=== PATIENT | female | born 1945 | race Caucasian/White ===

== ENCOUNTER 2021-08-31 20:09 | Inpatient (IN) ==
[2021-08-31] MEDS ORDERED: 0.9 % SODIUM CHLORIDE 1,000 ML IV ONE ×2 (20:54→23:04)
[2021-08-31] MEDS ORDERED: DEXAMETHASONE 10 MG/ML VIAL IV ONE (20:54)
[2021-08-31] MEDS ORDERED: IPRATROPIUM/ALBUTEROL 3 ML AMPUL.NEB NEB ONE (20:55)
[2021-08-31] MEDS ORDERED: DIAZEPAM 5 MG TABLET PO ONE (22:00)
[2021-08-31 22:09] LABS: ABG Methemoglobin 0.3 % (0.4-1.5); Total Hemoglobin 11.6 gm/Dl (12.0-15.0); VBG Base Excess -6 (-2-3); VBG HCO3 18.8 mmol/L (24.0-28.0); VBG Oxygen Saturation 89.7 % (40.0-70.0); VBG PCO2 33.8 mmHg (41.0-51.0); VBG PH 7.36 U (7.32-7.42); VBG PO2 75.1 mmHg (25.0-40.0); VBG Total CO2 19.8 mmol/L (25.0-29.0)
[2021-08-31 22:35] LABS: Basophils # (Auto) 0.02 K/mcL (0.00-0.30); Basophils % (Auto) 0.2 % (0.0-2.0); Eosinophils # (Auto) 0.01 K/mcL (0.00-0.70); Eosinophils % (Auto) 0.1 % (0.0-7.0); Hematocrit 39.6 % (34.1-44.9); Hemoglobin 12.9 g/dL (11.2-15.7); Lymphocytes # (Auto) 3.71 K/mcL (1.50-4.80); Lymphocytes % (Auto) 28.8 % (15.5-49.0); Mean Cell Volume 92.5 fL (80.0-100.0); Mean Corpuscular HGB Conc 32.6 g/dL (31.0-36.0); Mean Platelet Volume 13.1 fL (7.4-10.4); Monocytes # (Auto) 0.89 K/mcL (0.10-0.90); Monocytes % (Auto) 6.9 % (1.0-12.0); Platelet Count 171 K/mcL (140-440); RBC 4.28 M/mcL (3.59-5.38); Red Cell Distribution Width 14.9 % (11.5-14.5); WBC 12.9 K/mcL (4.5-11.0)
[2021-08-31 22:40] LABS: C-Reactive Protein 11.9 mg/dL (0.03-0.80)
[2021-08-31 22:41] LABS: Creatine Kinase 51 U/L (24-170)
[2021-08-31 22:48] LABS: Ferritin 441.2 ng/mL (30.0-400.0)
[2021-08-31 22:52] LABS: ALT/SGPT 12 U/L (<40); AST/SGOT 13 U/L (<32); Albumin 3.5 gm/dL (3.2-5.2); Alkaline Phosphatase 120 U/L (39-117); Bilirubin,Total 0.2 mg/dL (0.1-1.0); Blood Urea Nitrogen 101 mg/dL (8-23); Calcium 8.2 mg/dL (8.6-10.4); Carbon Dioxide 17 mmol/L (22-30); Chloride 97 mmol/L (96-108); Globulin 3.6 gm/dL (2.2-3.7); Glomerular Filtration Rate 9; Glucose 154 mg/dL (70-105)
[2021-09-01] MEDS ORDERED: MELATONIN 3 MG TABLET PO ONE (02:09)
[2021-09-01] MEDS ORDERED: PREGABALIN 150 MG CAPSULE PO ONE (02:09)
[2021-09-01] MEDS ORDERED: 0.9 % SODIUM CHLORIDE 1,000 ML IV ONE (02:10)
[2021-09-01] MEDS ORDERED: CALCIUM GLUCONATE 4.65 MEQ/10 ML VIAL IV ONE ×2 (02:11→06:40)
[2021-09-01] MEDS ORDERED: MAGNESIUM SULFATE 8.12 MEQ/2 ML VIAL IV ONE (02:11)
[2021-09-01] MEDS ORDERED: AZITHROMYCIN 500 MG in DEXTROSE 5% IN WATER 250 ML IV ONE (02:12)
[2021-09-01] MEDS ORDERED: cefTRIAXone 1 GM VIAL IV ONE (02:12)
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
[2021-09-01] MEDS ORDERED: SODIUM BICARBONATE 50 MEQ/50 ML VIAL IV ONE ×2 (04:09→06:41)
--- NOTE | 2021-09-01 05:23 | XRay Report ---
INDICATION: cough TECHNIQUE: AP portable semiupright chest x-ray COMPARISON: None FINDINGS: Lungs:Lungs are negative. No focal pulmonary parenchymal infiltrate or mass Heart, vascular:No significant cardiomegaly. Pulmonary vascularity is normal. No pulmonary edema or pulmonary congestion Mediastinum, javed:No mediastinal widening. No hilar mass Pleura:No pleural fluid. No pleural-based mass or calcification Skeletal:Negative. IMPRESSION: Negative AP chest x-ray Interpreted and Authenticated by: Maksim Greco 09/01/21
[2021-09-01 05:55] LABS: Basophils # (Auto) 0.01 K/mcL (0.00-0.30); Basophils % (Auto) 0.1 % (0.0-2.0); Eosinophils # (Auto) 0 K/mcL (0.00-0.70); Eosinophils % (Auto) 0 % (0.0-7.0); Hematocrit 34.7 % (34.1-44.9); Hemoglobin 11.1 g/dL (11.2-15.7); Lymphocytes # (Auto) 2.31 K/mcL (1.50-4.80); Lymphocytes % (Auto) 23.7 % (15.5-49.0); Mean Cell Volume 94.8 fL (80.0-100.0); Mean Platelet Volume 12.7 fL (7.4-10.4); Monocytes # (Auto) 0.13 K/mcL (0.10-0.90); Monocytes % (Auto) 1.3 % (1.0-12.0); Neutrophils % (Auto) 74.9 % (38.0-78.0); Platelet Count 141 K/mcL (140-440); RBC 3.66 M/mcL (3.59-5.38); Red Cell Distribution Width 14.7 % (11.5-14.5); WBC 9.7 K/mcL (4.5-11.0)
[2021-09-01] MEDS: 0.9 % SODIUM CHLORIDE 1,000 ML IV SCH ×3 (05:56→21:37)
[2021-09-01 06:17] LABS: ALT/SGPT 9 U/L (<40); AST/SGOT 11 U/L (<32); Albumin 2.7 gm/dL (3.2-5.2); Albumin/Globulin Ratio 0.9 (1.0-2.3); Alkaline Phosphatase 102 U/L (39-117); Bilirubin,Total < 0.2 mg/dL (0.1-1.0); Blood Urea Nitrogen 94 mg/dL (8-23); Calcium 7.7 mg/dL (8.6-10.4); Carbon Dioxide 19 mmol/L (22-30); Chloride 99 mmol/L (96-108); Globulin 3.1 gm/dL (2.2-3.7); Glomerular Filtration Rate 12; Glucose 345 mg/dL (70-105)
[2021-09-01] MEDS ORDERED: DEXTROSE 31 GM ORAL.SUSP PO PRN ×2 (06:34→19:43)
[2021-09-01] MEDS ORDERED: DEXTROSE 50% 50 ML VIAL IV PRN ×2 (06:34→19:43)
--- NOTE | 2021-09-01 07:38 | Emergency Department Note ---
Course Course Course Narrative: I assumed care from Dr. White at the change of shift. I evaluated the patient in person at 7:35 AM. She is resting comfortably and awakens to verbal stimuli. She reports improvement in her dyspnea. She is currently breathing comfortably on 4 L supplemental oxygen via nasal cannula with oxygen saturation in the mid 90s. I updated her with the continued search for inpatient bed availability. Vital Signs Vital signs: Vital Signs Temperature 99.2 F H 08/31/21 20:09 Pulse Rate 100 H 08/31/21 20:09 Respiratory Rate 18 08/31/21 20:09 Blood Pressure 94/56 08/31/21 20:09 Pulse Oximetry (%) 89 L 08/31/21 20:09 Temperature 99.2 F H 08/31/21 20:09 Pulse Rate 55 L 09/01/21 16:02 Respiratory Rate 9 L 09/01/21 16:02 Blood Pressure 132/45 09/01/21 16:02 Pulse Oximetry (%) 98 09/01/21 16:02 MDM MDM Narrative Medical decision making narrative: A bed became available at our hospital and I spoke with Dr. Vera who accepts admission to his service. I discussed the plan for admission with the patient and she is agreeable. Lab Data Result diagrams: 09/01/21 05:11 09/01/21 05:11 Labs: Lab Results 08/31/21 08/31/21 08/31/21 Range/Units 20:58 20:58 20:58 WBC 12.9 H (4.5-11.0) K/mcL RBC 4.28 (3.59-5.38) M/mcL Hgb 12.9 (11.2-15.7) g/dL Hct 39.6 (34.1-44.9) % MCV 92.5 (80.0-100.0) fL MCH 30.1 (26.0-34.0) pg MCHC 32.6 (31.0-36.0) g/dL RDW 14.9 H (11.5-14.5) % Plt Count 171 (140-440) K/mcL MPV 13.1 H (7.4-10.4) fL Neut % (Auto) 64.0 (38.0-78.0) % Lymph % (Auto) 28.8 (15.5-49.0) % Bennett % (Auto) 6.9 (1.0-12.0) % Eos % (Auto) 0.1 (0.0-7.0) % Baso % (Auto) 0.2 (0.0-2.0) % Lymph # (Auto) 3.71 (1.50-4.80) K/mcL Bennett # (Auto) 0.89 (0.10-0.90) K/mcL Eos # (Auto) 0.01 (0.00-0.70) K/mcL Baso # (Auto) 0.02 (0.00-0.30) K/mcL Absolute Neutrophils 8.26 H (1.80-8.00) K/mcL ABG Methemoglobin (0.4-1.5) % VBG pH (7.32-7.42) U VBG pCO2 (41.0-51.0) mmHg VBG pO2 (25.0-40.0) mmHg VBG HCO3 (24.0-28.0) mmol/L VBG Total CO2 (25.0-29.0) mmol/L VBG O2 Saturation (40.0-70.0) % VBG Base Excess (-2-3) VBG Lactic Acid (0.5-2.0) mmol/L Carboxyhemoglobin (0.0-1.5) % THgb Total Hemoglobin (12.0-15.0) gm/Dl Sodium 136 (133-145) mmol/L Potassium 3.8 (3.3-5.1) mmol/L Chloride 97 (96-108) mmol/L Carbon Dioxide 17 L (22-30) mmol/L Anion Gap 22.0 H (8.0-16.0) BUN 101 H* (8-23) mg/dL Creatinine 4.4 H (0.6-1.1) mg/dL GFR Calculation 9 Glucose 154 H (70-105) mg/dL Calcium 8.2 L (8.6-10.4) mg/dL Magnesium 1.4 L (1.6-2.5) mg/dL Ferritin (30.0-400.0) ng/mL Total Bilirubin 0.2 (0.1-1.0) mg/dL AST 13 (<32) U/L ALT 12 (<40) U/L Alkaline Phosphatase 120 H (39-117) U/L Total Creatine Kinase 51 (24-170) U/L Troponin T < 0.01 (<0.03) ng/mL C-Reactive Protein (0.03-0.80) mg/dL Total Protein 7.1 (5.9-8.4) gm/dL Albumin 3.5 (3.2-5.2) gm/dL Globulin 3.6 (2.2-3.7) gm/dL Albumin/Globulin Ratio 1.0 (1.0-2.3) Procalcitonin (<0.10) ng/mL 08/31/21 08/31/21 08/31/21 Range/Units 20:58 21:00 21:40 WBC (4.5-11.0) K/mcL RBC (3.59-5.38) M/mcL Hgb (11.2-15.7) g/dL Hct (34.1-44.9) % MCV (80.0-100.0) fL MCH (26.0-34.0) pg MCHC (31.0-36.0) g/dL RDW (11.5-14.5) % Plt Count (140-440) K/mcL MPV (7.4-10.4) fL Neut % (Auto) (38.0-78.0) % Lymph % (Auto) (15.5-49.0) % Bennett % (Auto) (1.0-12.0) % Eos % (Auto) (0.0-7.0) % Baso % (Auto) (0.0-2.0) % Lymph # (Auto) (1.50-4.80) K/mcL Bennett # (Auto) (0.10-0.90) K/mcL Eos # (Auto) (0.00-0.70) K/mcL Baso # (Auto) (0.00-0.30) K/mcL Absolute Neutrophils (1.80-8.00) K/mcL ABG Methemoglobin (0.4-1.5) % VBG pH (7.32-7.42) U VBG pCO2 (41.0-51.0) mmHg VBG pO2 (25.0-40.0) mmHg VBG HCO3 (24.0-28.0) mmol/L VBG Total CO2 (25.0-29.0) mmol/L VBG O2 Saturation (40.0-70.0) % VBG Base Excess (-2-3) VBG Lactic Acid 1.0 (0.5-2.0) mmol/L Carboxyhemoglobin (0.0-1.5) % THgb Total Hemoglobin (12.0-15.0) gm/Dl Sodium (133-145) mmol/L Potassium (3.3-5.1) mmol/L Chloride (96-108) mmol/L Carbon Dioxide (22-30) mmol/L Anion Gap (8.0-16.0) BUN (8-23) mg/dL Creatinine (0.6-1.1) mg/dL GFR Calculation Glucose (70-105) mg/dL Calcium (8.6-10.4) mg/dL Magnesium (1.6-2.5) mg/dL Ferritin 441.2 H (30.0-400.0) ng/mL Total Bilirubin (0.1-1.0) mg/dL AST (<32) U/L ALT (<40) U/L Alkaline Phosphatase (39-117) U/L Total Creatine Kinase (24-170) U/L Troponin T (<0.03) ng/mL C-Reactive Protein 11.90 H (0.03-0.80) mg/dL Total Protein (5.9-8.4) gm/dL Albumin (3.2-5.2) gm/dL Globulin (2.2-3.7) gm/dL Albumin/Globulin Ratio (1.0-2.3) Procalcitonin 0.27 H (<0.10) ng/mL 08/31/21 09/01/21 09/01/21 Range/Units 21:40 05:11 05:11 WBC 9.7 (4.5-11.0) K/mcL RBC 3.66 (3.59-5.38) M/mcL Hgb 11.1 L (11.2-15.7) g/dL Hct 34.7 (34.1-44.9) % MCV 94.8 (80.0-100.0) fL MCH 30.3 (26.0-34.0) pg MCHC 32.0 (31.0-36.0) g/dL RDW 14.7 H (11.5-14.5) % Plt Count 141 (140-440) K/mcL MPV 12.7 H (7.4-10.4) fL Neut % (Auto) 74.9 (38.0-78.0) % Lymph % (Auto) 23.7 (15.5-49.0) % Bennett % (Auto) 1.3 (1.0-12.0) % Eos % (Auto) 0 (0.0-7.0) % Baso % (Auto) 0.1 (0.0-2.0) % Lymph # (Auto) 2.31 (1.50-4.80) K/mcL Bennett # (Auto) 0.13 (0.10-0.90) K/mcL Eos # (Auto) 0 (0.00-0.70) K/mcL Baso # (Auto) 0.01 (0.00-0.30) K/mcL Absolute Neutrophils 7.28 (1.80-8.00) K/mcL ABG Methemoglobin 0.3 L (0.4-1.5) % VBG pH 7.36 (7.32-7.42) U VBG pCO2 33.8 L (41.0-51.0) mmHg VBG pO2 75.1 H (25.0-40.0) mmHg VBG HCO3 18.8 L (24.0-28.0) mmol/L VBG Total CO2 19.8 L (25.0-29.0) mmol/L VBG O2 Saturation 89.7 H (40.0-70.0) % VBG Base Excess -6 L (-2-3) VBG Lactic Acid (0.5-2.0) mmol/L Carboxyhemoglobin 4.7 H (0.0-1.5) % THgb Total Hemoglobin 11.6 L (12.0-15.0) gm/Dl Sodium 135 (133-145) mmol/L Potassium 3.7 (3.3-5.1) mmol/L Chloride 99 (96-108) mmol/L Carbon Dioxide 19 L (22-30) mmol/L Anion Gap 17.0 H (8.0-16.0) BUN 94 H (8-23) mg/dL Creatinine 3.5 H (0.6-1.1) mg/dL GFR Calculation 12 Glucose 345 H (70-105) mg/dL Calcium 7.7 L (8.6-10.4) mg/dL Magnesium 1.6 (1.6-2.5) mg/dL Ferritin (30.0-400.0) ng/mL Total Bilirubin < 0.2 (0.1-1.0) mg/dL AST 11 (<32) U/L ALT 9 (<40) U/L Alkaline Phosphatase 102 (39-117) U/L Total Creatine Kinase (24-170) U/L Troponin T (<0.03) ng/mL C-Reactive Protein (0.03-0.80) mg/dL Total Protein 5.8 L (5.9-8.4) gm/dL Albumin 2.7 L (3.2-5.2) gm/dL Globulin 3.1 (2.2-3.7) gm/dL Albumin/Globulin Ratio 0.9 L (1.0-2.3) Procalcitonin (<0.10) ng/mL ED POC Tests ED POC Tests: GIGI - Influenza A Negative GIGI - Influenza B Negative GIGI - SARS Antigen Positive Discharge Plan Patient/Caregiver Discharge Instructions Pt seen by DIRECTOR ADULT/PA only: No Clinical Impression: COVID-19, Acute hypoxemic respiratory failure, Acute renal failure Patient Disposition: Xfer As Inpt ([facility]) Condition: Fair Follow up with: Marce Baca ARNP [Primary Care Provider] - Prescriptions: No Action allopurinol 300 mg tablet 300 mg PO QDAY Qty: 90 1RF (DME) blood sugar diagnostic [Accu-Chek Chuyita Plus test strp] strip See Dose Instructions .ROUTE .MEDSUPPLY Qty: 20 0RF Rx Instructions: As directed (DME) blood-glucose meter [Accu-Chek Chuyita Plus Meter] misc See Dose Instructions .ROUTE .MEDSUPPLY Qty: 1 0RF Rx Instructions: As directed atorvastatin 80 mg tablet 80 mg PO QHS 0RF torsemide 10 mg tablet 10 mg PO QDAY 0RF Trulicity 1.5 mg/0.5 mL pen injector 1.5 mg SUB-Q QWEEK 0RF lisinopril-hydrochlorothiazide 20-12.5 mg tablet 1 tab PO BID 0RF insulin lispro [Humalog KwikPen Insulin] 100 unit/mL Insulin Pen See Rx Instructions .ROUTE .COMPLEX 0RF Rx Instructions: sliding scale with meals Basaglar KwikPen U-100 Insulin 100 unit/mL (3 mL) Insulin Pen 10 unit SUBCUT QAM 0RF glipizide 5 mg tablet 10 mg PO BID 0RF pregabalin 150 mg capsule 150 mg PO BID 0RF docusate sodium [Stool Softener] 100 mg capsule 100 mg PO QDAY 0RF
[2021-09-01] MEDS ORDERED: NON FORMULARY MEDICATION 1 DOSE MISCELL (Insulin Lispro [Humalog Kwikpen Insulin] 100 unit SCH (07:45)
[2021-09-01] MEDS: INSULIN LISPRO 1 UNIT/0.01 ML UNIT SQ SCH ×4 (08:29→22:22)
[2021-09-01] MEDS: INSULIN GLARGINE, HUMAN 1 UNIT/0.01 ML SQ SCH (08:30)
[2021-09-01] MEDS ORDERED: NON FORMULARY MEDICATION 1 DOSE MISCELL (Insulin Glargine [Basaglar Kwikpen U-100 Insulin] SUB-Q SCH (09:00)
[2021-09-01] MEDS ORDERED: glipiZIDE 5 MG TABLET PO SCH ×2 (09:00→17:00)
[2021-09-01] MEDS ORDERED: HEPARIN 5,000 UNIT/ML VIAL SQ SCH (09:00)
[2021-09-01] MEDS ORDERED: DULAGLUTIDE 1.5 MG/0.5 ML SUB-Q SCH (09:00)
[2021-09-01] MEDS ORDERED: DOCUSATE SODIUM 100 MG CAPSULE PO SCH (09:00)
[2021-09-01] MEDS ORDERED: PREGABALIN 150 MG CAPSULE PO SCH (09:00)
[2021-09-01] MEDS ORDERED: [UNRECOGNIZED DRUG - OTHER] SUB-Q SCH (09:00)
--- NOTE | 2021-09-01 16:08 | EKG ---
[facility] Test Date: 2021-08-31 Pat Name: Rosina Morris Department: ED Room: Gender: Female Direct Sales Consultant: SB : [id number] Requested By: Princess White Order Number: [id number] Reading MD: Ad Miller Measurements Intervals Lindsay Rate: 89 P: 191 MT: 153 QRS: -57 QRSD: 119 T: 64 QT: 391 QTc: 476 Interpretive Statements Excessive artifact Sinus rhythm Poor R wave progression Electronically Signed On 09-01-2021 16:08:12 PST by Ad Miller /store/M0/[id number]/[id number].pdf
[2021-09-01] MEDS ORDERED: INSULIN LISPRO 1 UNIT/0.01 ML UNIT SQ ONE (17:11)
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
[2021-09-01] MEDS ORDERED: ONDANSETRON 4 MG/2 ML VIAL IV PRN (19:43)
[2021-09-01] MEDS ORDERED: cefTRIAXone 2 GM VIAL ONE (20:21)
[2021-09-01] MEDS: cefTRIAXone 2 GM in DEXTROSE 5% IN WATER 50 ML IV SCH (21:37)
[2021-09-01] MEDS: 0.9 % SODIUM CHLORIDE 10 ML SYRINGE IV SCH (21:38)
[2021-09-01] MEDS: ATORVASTATIN 40 MG TABLET PO SCH (21:38)
[2021-09-01] MEDS: HEPARIN 5,000 UNIT/ML VIAL SQ SCH (21:38)
[2021-09-01] MEDS: ALLOPURINOL 100 MG TABLET PO SCH (21:38)
[2021-09-01] MEDS: SENNOSIDES 1 TABLET PO SCH (21:52)
[2021-09-01] MEDS: DOCUSATE SODIUM 100 MG CAPSULE PO SCH (21:52)
[2021-09-01 23:08] LABS: Appearance,Urine Clear (Clear); Bilirubin,Urine Negative (Negative); Color,Urine Yellow; Culture Indicated,Urine No; Glucose,Urine (UA) Negative (Negative); Ketones,Urine Negative (Negative); Leukocyte Esterase,Urine Negative /uL (Negative); Mucus,Urine FEW /hpf; Nitrate,Urine Negative (Negative); PH,Urine 5.5 (5.0-9.0); Protein,Urine Negative (Negative); Specific Gravity,Urine 1.015 (1.000-1.035); Urine Blood Trace-intact ery/mcL (Negative); Urine RBC < 1 /hpf (0-3); Urine Squamous Epithelial Cell < 1 /hpf (0-4); Urine WBC 1 /hpf (0-4); Urobilinogen,Urine Normal
[2021-09-02] MEDS: 0.9 % SODIUM CHLORIDE 1,000 ML IV SCH ×2 (03:49→11:08)
[2021-09-02] MEDS: 0.9 % SODIUM CHLORIDE 10 ML SYRINGE IV SCH ×3 (05:58→22:06)
--- NOTE | 2021-09-02 06:45 | Ultrasound Report ---
INDICATION: acute kidney injury TECHNIQUE: Grayscale and color flow Doppler spectral imaging. COMPARISON: None. FINDINGS: Right kidney: Right kidney measures9.4 x 5.0 x 3.9 cm. There is no hydronephrosis. No solid right renal mass. Renal cortex is normal. No detectable calculi. There are 2 benign simple cyst. Inferior pole cyst measures 18 x 16 x 19 mm. Lateral cyst measures 18 x 9 x 14 mm. No evidence for renal injury. No perinephric fluid Left kidney: Left kidney measures9.2 x 4.3 x 3.7 cm. There is no hydronephrosis. No solid left renal mass. Renal cortex is normal. No detectable calculi. There are 2 simple cysts. These measure 6 x 5 x 4 mm and 11 x 8 x 11 mm. No evidence for renal injury. No perinephric fluid Bladder: Bladder is not assessed as it is decompressed by a Pan catheter IMPRESSION: Negative renal ultrasound Interpreted and Authenticated by: Maksim Greco 09/02/21
[2021-09-02] MEDS: INSULIN LISPRO 1 UNIT/0.01 ML UNIT SQ SCH ×4 (07:08→22:05)
--- NOTE | 2021-09-02 07:32 | XRay Report ---
INDICATION: Repeat after IV fluid, positive for COVID. TECHNIQUE: AP portable chest x-ray COMPARISON: Previous examination dated 08/31/2021 FINDINGS: Lungs:Lungs are negative. No focal pulmonary parenchymal infiltrate or mass Heart, vascular:No significant cardiomegaly. Pulmonary vascularity is normal. No pulmonary edema or pulmonary congestion Mediastinum, javed:No mediastinal widening. No hilar mass Pleura:No pleural fluid. No pleural-based mass or calcification Skeletal:Negative. IMPRESSION: Negative AP chest x-ray Interpreted and Authenticated by: Maksim Greco 09/02/21
[2021-09-02] MEDS: DEXAMETHASONE 10 MG/ML VIAL IV SCH (08:14)
[2021-09-02] MEDS: HEPARIN 5,000 UNIT/ML VIAL SQ SCH ×2 (08:14→22:06)
[2021-09-02] MEDS: DOCUSATE SODIUM 100 MG CAPSULE PO SCH ×2 (08:14→22:05)
[2021-09-02 08:39] LABS: ALT/SGPT 10 U/L (<40); AST/SGOT 13 U/L (<32); Albumin 2.5 gm/dL (3.2-5.2); Albumin/Globulin Ratio 0.8 (1.0-2.3); Alkaline Phosphatase 90 U/L (39-117); Bilirubin,Direct < 0.2 mg/dL (0-0.3); Bilirubin,Total < 0.2 mg/dL (0.1-1.0); Blood Urea Nitrogen 75 mg/dL (8-23); Calcium 7.6 mg/dL (8.6-10.4); Carbon Dioxide 21 mmol/L (22-30); Chloride 113 mmol/L (96-108); Globulin 3.3 gm/dL (2.2-3.7); Glomerular Filtration Rate 19; Glucose 41 mg/dL (70-105); Lactate Dehydrogenase 179 U/L (135-225); Phosphorous 3.4 mg/dL (2.5-4.5); Triglycerides 171 mg/dL (<150); Uric Acid 5.3 mg/dL (2.5-8.0)
[2021-09-02 09:01] LABS: Hematocrit 33.8 % (34.1-44.9); Mean Cell Volume 92.1 fL (80.0-100.0); Mean Corpuscular HGB Conc 32.5 g/dL (31.0-36.0); Mean Platelet Volume 12.9 fL (7.4-10.4); Platelet Count 151 K/mcL (140-440); RBC 3.67 M/mcL (3.59-5.38); Red Cell Distribution Width 14.7 % (11.5-14.5); WBC 10.6 K/mcL (4.5-11.0)
[2021-09-02] MEDS ORDERED: POTASSIUM CHLORIDE 20 MEQ TABLET PO ONE (09:18)
[2021-09-02] MEDS ORDERED: MAGNESIUM SULFATE 2 GM/50 ML BAG IV ONE (09:19)
[2021-09-02] MEDS: cefTRIAXone 2 GM in DEXTROSE 5% IN WATER 50 ML IV SCH (10:01)
[2021-09-02] MEDS: INSULIN GLARGINE, HUMAN 1 UNIT/0.01 ML SQ SCH (10:11)
[2021-09-02 11:22] LABS: Lymphocytes % 32 % (15-49); Monocytes % (Manual) 5 % (1-12); Platelet Estimate NORMAL (Normal); RBC Morphology NORMAL (Normal); Segmented Neutrophils % 63 % (38-78)
[2021-09-02] MEDS: ACETAMINOPHEN 325 MG TABLET PO PRN ×2 (12:36→21:27)
[2021-09-02] MEDS ORDERED: GABAPENTIN 300 MG CAPSULE PO SCH (15:15)
--- NOTE | 2021-09-02 17:05 | Internal Med Progress Note ---
SUBJECTIVE Subjective Patient information: Note initiated : 09/02/21 at 5:05 pm Service Date, if different from initiated Date: [] Patient: Rosina Morris 76 y/o F admitted on 09/01/21 for weakness. Chief Complaint: [] Principal diagnosis: COVID Interval history: Ms. Morris is a 76 year old female with a history of hypertension, type 2 diabetes mellitus, chronic kidney disease stage IV, gout, bladder cancer who developed chills, nausea approximately 4 days prior to presenting to the emergency department with a chief complaint of chills and weakness. In the emergency department, the patient was found to be positive for Covid via Monika rapid antigen test. Patient also had a oxygen requirement of 2 L/min via nasal cannula. Laboratory work in emergency department showed a acute kidney injury and azotemia with a creatinine of 4.4 and a BUN level of 101. The patient also had leukocytosis of 12.9 upon presentation to the emergency department. Hospital medicine was asked to admit the patient. In the emergency department, the patient's chief complaint was chills. She had received a substantial amount of IV fluid and was making clear urine via a Lopez catheter that been placed in the emergency department. The patient had received a dose of Decadron while waiting for bed in the emergency department. She also received ceftriaxone and azithromycin for possible community-acquired pneumonia. Chest x-ray did not show any infiltrate suggestive of either community-acquired or Covid pneumonia. We discussed goals of care including CODE STATUS, the patient wishes to be DNR/DNI. 09/02 Some loose stools today, on room air and feeling better, renal function improving making urine. Stopped IV fluid, removed lopez catheter, resumed renally dosed Lyrica. Decreased Lantus to 5 units HS for morning hypoglycemia. Replaced potassium and magnesium. CRP and procalcitonin trending down, continued Ceftriaxone, blood and urine cultures pending. Physical exam Head: Atraumatic, normal inspection. Eyes: normal appearance, no scleral icterus. Neck: full ROM Respiratory: Nasal cannula oxygen no respiratory distress. Cardiovascular: normal rate and rhythm, S1, S2. GI/Abdominal: soft, nontender, no guarding. : Lopez catheter Extremities: full range of motion, nontender. Neurological: CN II-XII intact, intact motor, intact sensation. Psychiatric: normal mood. Skin: warm, normal color Constitutional Vitals: Vital Signs Temp Pulse Resp BP Pulse Ox 99.0 F 63 18 143/63 92 09/02/21 12:00 09/02/21 12:00 09/02/21 12:00 09/02/21 12:00 09/02/21 12:00 Period Temp Pulse Resp BP Sys/Pedersen Pulse Ox Last 24 Hr 98 F-99.9 F 57-86 11-30 123-160/48-115 85-96 Intake and Output 09/02/21 09/02/21 09/02/21 05:59 13:59 21:59 Intake Total 390 1650 1080 Output Total 348 460 4105 Balance -360 1325 55 Intake & Output: Intake & Output 09/02/21 09/02/21 09/02/21 05:59 13:59 21:59 Intake Total 390 1650 1080 Output Total 369 009 5143 Balance -360 1325 55 Intake: IV 50 1050 50 Sodium Chloride 0.9% 1,000 ml @ 1000 125 mls/hr IV .Q8H [facility] Rx#: [id number] Rocephin 2 gm In Dextrose 5% in 50 50 Water 50 ml @ 100 mls/hr IV Q24H [facility] Rx#:[id number] Oral 256 [id number] [id number] Output: Urine Catheter Amount 750 325 Void Amount 1025 Other: Meal Breakfast Lunch Percent of Meal Consumed 100% 50% Feeding Ability Assist with Tray Set Up Urine Appearance Clear Clear Clear Urine Color Bright Yellow Bright Yellow Bright Yellow Stool Size Large Stool Color Brown Stool Consistency Soft Loose # Bowel Movements 2 8 # of times incontinent of 1 5 Bowels OBJ DATA Labs CBC & Chem 7: 09/02/21 05:25 09/02/21 05:25 Labs: Abnormal Lab Results 09/02/21 09/02/21 09/02/21 05:25 05:25 05:25 WBC Hgb 11.0 L Hct 33.8 L RDW 14.7 H MPV 12.9 H Absolute Neutrophils ABG Methemoglobin VBG pCO2 VBG pO2 VBG HCO3 VBG Total CO2 VBG O2 Saturation VBG Base Excess Carboxyhemoglobin Total Hemoglobin Sodium 147 H Potassium 3.0 L Chloride 113 H Carbon Dioxide 21 L Anion Gap BUN 75 H Creatinine 2.4 H Glucose 41 L Calcium 7.6 L Magnesium 1.5 L Ferritin Alkaline Phosphatase C-Reactive Protein 6.80 H Total Protein 5.8 L Albumin 2.5 L Albumin/Globulin Ratio 0.8 L Triglycerides 171 H Procalcitonin 0.15 H Urine Occult Blood Urine Mucus 09/01/21 09/01/21 09/01/21 17:55 05:11 05:11 WBC Hgb 11.1 L Hct RDW 14.7 H MPV 12.7 H Absolute Neutrophils ABG Methemoglobin VBG pCO2 VBG pO2 VBG HCO3 VBG Total CO2 VBG O2 Saturation VBG Base Excess Carboxyhemoglobin Total Hemoglobin Sodium Potassium Chloride Carbon Dioxide 19 L Anion Gap 17.0 H BUN 94 H Creatinine 3.5 H Glucose 345 H Calcium 7.7 L Magnesium Ferritin Alkaline Phosphatase C-Reactive Protein Total Protein 5.8 L Albumin 2.7 L Albumin/Globulin Ratio 0.9 L Triglycerides Procalcitonin Urine Occult Blood Trace-intact A Urine Mucus Few A 08/31/21 08/31/21 08/31/21 21:40 21:00 20:58 WBC Hgb Hct RDW MPV Absolute Neutrophils ABG Methemoglobin 0.3 L VBG pCO2 33.8 L VBG pO2 75.1 H VBG HCO3 18.8 L VBG Total CO2 19.8 L VBG O2 Saturation 89.7 H VBG Base Excess -6 L Carboxyhemoglobin 4.7 H Total Hemoglobin 11.6 L Sodium Potassium Chloride Carbon Dioxide Anion Gap BUN Creatinine Glucose Calcium Magnesium Ferritin 441.2 H Alkaline Phosphatase C-Reactive Protein 11.90 H Total Protein Albumin Albumin/Globulin Ratio Triglycerides Procalcitonin 0.27 H Urine Occult Blood Urine Mucus 08/31/21 08/31/21 20:58 20:58 WBC 12.9 H Hgb Hct RDW 14.9 H MPV 13.1 H Absolute Neutrophils 8.26 H ABG Methemoglobin VBG pCO2 VBG pO2 VBG HCO3 VBG Total CO2 VBG O2 Saturation VBG Base Excess Carboxyhemoglobin Total Hemoglobin Sodium Potassium Chloride Carbon Dioxide 17 L Anion Gap 22.0 H BUN 101 H* Creatinine 4.4 H Glucose 154 H Calcium 8.2 L Magnesium 1.4 L Ferritin Alkaline Phosphatase 120 H C-Reactive Protein Total Protein Albumin Albumin/Globulin Ratio Triglycerides Procalcitonin Urine Occult Blood Urine Mucus Meds: Medications Acetaminophen (Acetaminophen 325 Mg Tablet) 650 mg PO Q6HP PRN; Protocol PRN Reason: Per Pain Protocol/Fever > 101 Last Admin: 09/02/21 12:36 Dose: 650 mg Documented by: Allopurinol (Allopurinol 100 Mg Tablet) 100 mg PO [facility] Last Admin: 09/01/21 21:38 Dose: 100 mg Documented by: Atorvastatin Calcium (Atorvastatin 40 Mg Tablet) 80 mg PO QHS [facility] Last Admin: 09/01/21 21:38 Dose: 80 mg Documented by: Dexamethasone (Dexamethasone 10 Mg/Ml Vial) 6 mg IV DAILY [facility] Last Admin: 09/02/21 08:14 Dose: 6 mg Documented by: Dextrose (Dextrose 50% 50 Ml Vial) 0 ml IV UD PRN PRN Reason: Hypoglycemia Diagnostic Test (Pha) (Accu-Chek 1 Each Strip) 1 each FS [facility] Last Admin: 09/02/21 11:53 Dose: 1 each Documented by: Docusate Sodium (Docusate Sodium 100 Mg Capsule) 100 mg PO BID [facility] Last Admin: 09/02/21 08:14 Dose: Not Given Documented by: Glucose (Dextrose 31 Gm Oral.Susp) 15 gm PO PRN PRN PRN Reason: Hypoglycemia Heparin Sodium (Porcine) (Heparin 5,000 Unit/Ml Vial) 5,000 unit SQ Q12 [facility] Last Admin: 09/02/21 08:14 Dose: 5,000 unit Documented by: Ceftriaxone Sodium 2 gm/ (Dextrose) 50 mls @ 100 mls/hr IV Q24H [facility]; Protocol Last Infusion: 09/02/21 11:08 Dose: Infused Documented by: Insulin Glargine (Insulin Glargine, Human 1 Unit/0.01 Ml) 5 unit SQ DAILY [facility] Insulin Human Lispro (Insulin Lispro 1 Unit/0.01 Ml Unit) 0 unit SQ [facility]; Protocol Last Admin: 09/02/21 12:35 Dose: 10 units Documented by: Ondansetron HCl (Ondansetron 4 Mg/2 Ml Vial) 4 mg IV Q6HP PRN PRN Reason: Nausea And Vomiting Pregabalin (Pregabalin 150 Mg Capsule) 150 mg PO DAILY [facility] Senna (Sennosides 1 Tablet) 2 tab PO [facility] Last Admin: 09/01/21 21:52 Dose: Not Given Documented by: Sodium Chloride (0.9 % Sodium Chloride 10 Ml Syringe) 10 ml IV Q8 [facility] Last Admin: 09/02/21 12:36 Dose: 10 ml Documented by: ABG Interpretation ABG results: 08/31/21 21:40 ABG Methemoglobin 0.3 L VBG pH 7.36 VBG pCO2 33.8 L VBG pO2 75.1 H VBG HCO3 18.8 L VBG Total CO2 19.8 L VBG O2 Saturation 89.7 H VBG Base Excess -6 L A/P Narrative A/P Narrative: Assessment: 76 year old female with a history of hypertension, type 2 diabetes mellitus, chronic kidney disease stage IV, gout, bladder cancer who developed chills, nausea approximately 4 days prior to presenting to the emergency department with a chief complaint of chills and weakness and tested positive for COVID. The patient was found to be hypoxic and had a acute on chronic kidney injury. Chest x-ray did not show any infiltrates. #Acute on chronic kidney injury #Acute hypoxic respiratory failure #Covid illness #SIRS, elevated procalcitonin #Hypernatremia #Hypokalemia #Hypomagnesemia #Generalized weakness #Hypertension #Type 2 diabetes mellitus #Gout #History of bladder cancer #Obesity Plan -Stop IV fluid, monitor urine output and renal function. -Dexamethasone 6 mg IV daily, deferred remdesivir due to renal failure. -Monitor respiratory status. -Continue Ceftriaxone for now, follow blood and urine cultures-discontinue if no growth at 48 hrs. -Lantus and SSImedium. -Replace electrolytes as needed. -Hold home lisinopril, hydrochlorothiazide, torsemide, glipizide, dulaglutide. -Continue home atorvastatin. -Renally dosed Lyrica. -Renally dosed allopurinol. -PT consult. -Diabetic diet -Remove lopez catheter -DVT prophylaxis: Heparin SQ -CODE STATUS: Limited -Disposition: TBD Time Spent With Patient Time: Total time spent is greater than 50% in coordination of care (as documented) at patient's floor/unit and/or counseling patient:
[2021-09-02] MEDS: PREGABALIN 150 MG CAPSULE PO SCH (17:32)
[2021-09-02] MEDS: SENNOSIDES 1 TABLET PO SCH (22:06)
[2021-09-02] MEDS: ALLOPURINOL 100 MG TABLET PO SCH (22:06)
[2021-09-02] MEDS: ATORVASTATIN 40 MG TABLET PO SCH (22:06)
[2021-09-02] MEDS: HYDROCODONE/APAP 7.5/325MG TABLET PO PRN (23:09)
[2021-09-02] MEDS ORDERED: HYDROCODONE/APAP 7.5/325MG TABLET PO ONE (23:12)
[2021-09-03] MEDS: 0.9 % SODIUM CHLORIDE 10 ML SYRINGE IV SCH ×3 (05:43→21:49)
[2021-09-03 07:08] LABS: Hematocrit 35.7 % (34.1-44.9); Hemoglobin 11.5 g/dL (11.2-15.7); Mean Cell Volume 93.2 fL (80.0-100.0); Mean Corpuscular HGB Conc 32.2 g/dL (31.0-36.0); Mean Platelet Volume 12.9 fL (7.4-10.4); Platelet Count 154 K/mcL (140-440); RBC 3.83 M/mcL (3.59-5.38); Red Cell Distribution Width 14.8 % (11.5-14.5); WBC 8.4 K/mcL (4.5-11.0)
[2021-09-03 07:33] LABS: ALT/SGPT 12 U/L (<40); AST/SGOT 14 U/L (<32); Albumin 2.7 gm/dL (3.2-5.2); Albumin/Globulin Ratio 0.8 (1.0-2.3); Alkaline Phosphatase 107 U/L (39-117); Bilirubin,Direct < 0.2 mg/dL (0-0.3); Bilirubin,Total < 0.2 mg/dL (0.1-1.0); Blood Urea Nitrogen 52 mg/dL (8-23); Calcium 8.3 mg/dL (8.6-10.4); Carbon Dioxide 21 mmol/L (22-30); Chloride 109 mmol/L (96-108); Globulin 3.3 gm/dL (2.2-3.7); Glomerular Filtration Rate 27; Glucose 158 mg/dL (70-105); Lactate Dehydrogenase 245 U/L (135-225); Phosphorous 2.5 mg/dL (2.5-4.5); Triglycerides 137 mg/dL (<150); Uric Acid 4.4 mg/dL (2.5-8.0)
[2021-09-03] MEDS: INSULIN LISPRO 1 UNIT/0.01 ML UNIT SQ SCH ×4 (08:05→21:49)
[2021-09-03 08:16] LABS: Lymphocytes % 36 % (15-49); Monocytes % (Manual) 4 % (1-12); Platelet Estimate NORMAL (Normal); RBC Morphology NORMAL (Normal); Segmented Neutrophils % 60 % (38-78)
[2021-09-03] MEDS: DOCUSATE SODIUM 100 MG CAPSULE PO SCH ×2 (09:01→21:49)
[2021-09-03] MEDS: PREGABALIN 150 MG CAPSULE PO SCH (09:01)
[2021-09-03] MEDS: DEXAMETHASONE 10 MG/ML VIAL IV SCH (09:02)
[2021-09-03] MEDS: INSULIN GLARGINE, HUMAN 1 UNIT/0.01 ML SQ SCH (09:03)
[2021-09-03] MEDS: HEPARIN 5,000 UNIT/ML VIAL SQ SCH ×2 (09:04→21:48)
[2021-09-03] MEDS: cefTRIAXone 2 GM in DEXTROSE 5% IN WATER 50 ML IV SCH (09:05)
--- NOTE | 2021-09-03 13:57 | Internal Med Progress Note ---
SUBJECTIVE Subjective Patient information: Note initiated : 09/03/21 at 1:55 pm Service Date, if different from initiated Date: [] Patient: Rosina Morris 76 y/o F admitted on 09/01/21 for weakness. Chief Complaint: [] Principal diagnosis: COVID Interval history: Ms. Morris is a 76 year old female with a history of hypertension, type 2 diabetes mellitus, chronic kidney disease stage IV, gout, bladder cancer who developed chills, nausea approximately 4 days prior to presenting to the emergency department with a chief complaint of chills and weakness. In the emergency department, the patient was found to be positive for Covid via Monika rapid antigen test. The patient has not been vaccinated for COVID. Patient also had a oxygen requirement of 2 L/min via nasal cannula. Laboratory work in emergency department showed a acute kidney injury and azotemia with a creatinine of 4.4 and a BUN level of 101. The patient also had leukocytosis of 12.9 upon presentation to the emergency department. Hospital medicine was asked to admit the patient. In the emergency department, the patient's chief complaint was chi lls. She had received a substantial amount of IV fluid and was making clear urine via a Lopez catheter that been placed in the emergency department. The patient had received a dose of Decadron while waiting for bed in the emergency department. She also received ceftriaxone and azithromycin for possible community-acquired pneumonia. Chest x-ray did not show any infiltrate suggestive of either community-acquired or Covid pneumonia.UA was not suggestive of UTI. We discussed goals of care including CODE STATUS, the patient wishes to be DNR/DNI. 09/02 Some loose stools today, on room air and feeling better, renal function improving making urine. Stopped IV fluid, removed lopez catheter, resumed renally dosed Lyrica. Decreased Lantus to 5 units HS for morning hypoglycemia. Replaced potassium and magnesium. CRP and procalcitonin trending down, continued Ceftriaxone, blood and urine cultures pending. Bilateral renal ultrasound negative. 09/03 Loose stools resolved, continues on room air, renal function improving, good urine output. Sodium, potassium, and magnesium normal today. Blood cultures showing no growth to date, no evidence of UTI and repeat chest xray was clear after IV fluid. Discontinued Ceftriaxone. Physical exam Head: Atraumatic, normal inspection. Eyes: normal appearance, no scleral icterus. Neck: full ROM Respiratory: Nasal cannula oxygen no respiratory distress. Cardiovascular: normal rate and rhythm, S1, S2. GI/Abdominal: soft, nontender, no guarding. Extremities: full range of motion, nontender. Neurological: CN II-XII intact, intact motor, intact sensation. Psychiatric: normal mood. Skin: warm, normal color Constitutional Vitals: Vital Signs Temp Pulse Resp BP Pulse Ox 98.5 F 46 L 20 128/41 95 09/03/21 12:00 09/03/21 12:00 09/03/21 12:00 09/03/21 12:00 09/03/21 12:00 Period Temp Pulse Resp BP Sys/Pedersen Pulse Ox Last 24 Hr 97.7 F-98.6 F 46-79 16-20 124-166/41-76 90-95 Intake and Output 09/02/21 09/03/21 09/03/21 21:59 05:59 13:59 Intake Total 2080 1000 50 Output Total 1025 851 Balance 1055 149 50 Weight 76.839 kg Intake & Output: Intake & Output 09/02/21 09/03/21 09/03/21 21:59 05:59 13:59 Intake Total 2080 1000 50 Output Total 1025 851 Balance 1055 149 50 Weight 76.839 kg Intake: IV 50 50 Rocephin 2 gm In Dextrose 5% in 50 Water 50 ml @ 100 mls/hr IV Q24H [facility] Rx#:[id number] Oral 2030 1000 Output: Void Amount 1025 850 # of times incontinent of urine 1 Other: Meal Dinner Percent of Meal Consumed 75% Urine Appearance Clear Clear Urine Color Bright Yellow Pale Stool Size Moderate Stool Color Brown Stool Consistency Soft # Voids 1 # Bowel Movements 1 # of times incontinent of 5 Bowels OBJ DATA Labs CBC & Chem 7: 09/03/21 05:16 09/03/21 05:16 Labs: Abnormal Lab Results 09/03/21 09/03/21 09/02/21 05:16 05:16 05:25 WBC Hgb Hct RDW 14.8 H MPV 12.9 H Absolute Neutrophils ABG Methemoglobin VBG pCO2 VBG pO2 VBG HCO3 VBG Total CO2 VBG O2 Saturation VBG Base Excess Carboxyhemoglobin Total Hemoglobin Sodium Potassium Chloride 109 H Carbon Dioxide 21 L Anion Gap BUN 52 H Creatinine 1.8 H Glucose 158 H Calcium 8.3 L Magnesium Ferritin Alkaline Phosphatase Lactate Dehydrogenase 245 H C-Reactive Protein Total Protein Albumin 2.7 L Albumin/Globulin Ratio 0.8 L Triglycerides Procalcitonin 0.15 H Urine Occult Blood Urine Mucus 09/02/21 09/02/21 09/01/21 05:25 05:25 17:55 WBC Hgb 11.0 L Hct 33.8 L RDW 14.7 H MPV 12.9 H Absolute Neutrophils ABG Methemoglobin VBG pCO2 VBG pO2 VBG HCO3 VBG Total CO2 VBG O2 Saturation VBG Base Excess Carboxyhemoglobin Total Hemoglobin Sodium 147 H Potassium 3.0 L Chloride 113 H Carbon Dioxide 21 L Anion Gap BUN 75 H Creatinine 2.4 H Glucose 41 L Calcium 7.6 L Magnesium 1.5 L Ferritin Alkaline Phosphatase Lactate Dehydrogenase C-Reactive Protein 6.80 H Total Protein 5.8 L Albumin 2.5 L Albumin/Globulin Ratio 0.8 L Triglycerides 171 H Procalcitonin Urine Occult Blood Trace-intact A Urine Mucus Few A 09/01/21 09/01/21 08/31/21 05:11 05:11 21:40 WBC Hgb 11.1 L Hct RDW 14.7 H MPV 12.7 H Absolute Neutrophils ABG Methemoglobin 0.3 L VBG pCO2 33.8 L VBG pO2 75.1 H VBG HCO3 18.8 L VBG Total CO2 19.8 L VBG O2 Saturation 89.7 H VBG Base Excess -6 L Carboxyhemoglobin 4.7 H Total Hemoglobin 11.6 L Sodium Potassium Chloride Carbon Dioxide 19 L Anion Gap 17.0 H BUN 94 H Creatinine 3.5 H Glucose 345 H Calcium 7.7 L Magnesium Ferritin Alkaline Phosphatase Lactate Dehydrogenase C-Reactive Protein Total Protein 5.8 L Albumin 2.7 L Albumin/Globulin Ratio 0.9 L Triglycerides Procalcitonin Urine Occult Blood Urine Mucus 08/31/21 08/31/21 08/31/21 21:00 20:58 20:58 WBC Hgb Hct RDW MPV Absolute Neutrophils ABG Methemoglobin VBG pCO2 VBG pO2 VBG HCO3 VBG Total CO2 VBG O2 Saturation VBG Base Excess Carboxyhemoglobin Total Hemoglobin Sodium Potassium Chloride Carbon Dioxide 17 L Anion Gap 22.0 H BUN 101 H* Creatinine 4.4 H Glucose 154 H Calcium 8.2 L Magnesium 1.4 L Ferritin 441.2 H Alkaline Phosphatase 120 H Lactate Dehydrogenase C-Reactive Protein 11.90 H Total Protein Albumin Albumin/Globulin Ratio Triglycerides Procalcitonin 0.27 H Urine Occult Blood Urine Mucus 08/31/21 20:58 WBC 12.9 H Hgb Hct RDW 14.9 H MPV 13.1 H Absolute Neutrophils 8.26 H ABG Methemoglobin VBG pCO2 VBG pO2 VBG HCO3 VBG Total CO2 VBG O2 Saturation VBG Base Excess Carboxyhemoglobin Total Hemoglobin Sodium Potassium Chloride Carbon Dioxide Anion Gap BUN Creatinine Glucose Calcium Magnesium Ferritin Alkaline Phosphatase Lactate Dehydrogenase C-Reactive Protein Total Protein Albumin Albumin/Globulin Ratio Triglycerides Procalcitonin Urine Occult Blood Urine Mucus Meds: Medications Acetaminophen (Acetaminophen 325 Mg Tablet) 650 mg PO Q6HP PRN; Protocol PRN Reason: Per Pain Protocol/Fever > 101 Last Admin: 09/02/21 21:27 Dose: 650 mg Documented by: Hydrocodone Bitart/Acetaminophen (Hydrocodone/Apap 7.5/325mg Tablet) 1 tab PO BIDP PRN; Protocol PRN Reason: Per Pain Protocol Last Admin: 09/02/21 23:09 Dose: 1 tab Documented by: Allopurinol (Allopurinol 100 Mg Tablet) 100 mg PO HS [facility] Last Admin: 09/02/21 22:06 Dose: 100 mg Documented by: Atorvastatin Calcium (Atorvastatin 40 Mg Tablet) 80 mg PO QHS [facility] Last Admin: 09/02/21 22:06 Dose: 80 mg Documented by: Dexamethasone (Dexamethasone 10 Mg/Ml Vial) 6 mg IV DAILY [facility] Last Admin: 09/03/21 09:02 Dose: 6 mg Documented by: Dextrose (Dextrose 50% 50 Ml Vial) 0 ml IV UD PRN PRN Reason: Hypoglycemia Diagnostic Test (Pha) (Accu-Chek 1 Each Strip) 1 each FS ACHS [facility] Last Admin: 09/03/21 12:26 Dose: 1 each Documented by: Docusate Sodium (Docusate Sodium 100 Mg Capsule) 100 mg PO BID [facility] Last Admin: 09/03/21 09:01 Dose: 100 mg Documented by: Glucose (Dextrose 31 Gm Oral.Susp) 15 gm PO PRN PRN PRN Reason: Hypoglycemia Heparin Sodium (Porcine) (Heparin 5,000 Unit/Ml Vial) 5,000 unit SQ Q12 [facility] Last Admin: 09/03/21 09:04 Dose: 5,000 unit Documented by: Ceftriaxone Sodium 2 gm/ (Dextrose) 50 mls @ 100 mls/hr IV Q24H [facility]; Protocol Last Infusion: 09/03/21 09:35 Dose: Infused Documented by: Insulin Glargine (Insulin Glargine, Human 1 Unit/0.01 Ml) 5 unit SQ DAILY [facility] Last Admin: 09/03/21 09:03 Dose: 5 units Documented by: Insulin Human Lispro (Insulin Lispro 1 Unit/0.01 Ml Unit) 0 unit SQ ACHS [facility]; Protocol Last Admin: 09/03/21 12:26 Dose: 8 units Documented by: Ondansetron HCl (Ondansetron 4 Mg/2 Ml Vial) 4 mg IV Q6HP PRN PRN Reason: Nausea And Vomiting Pregabalin (Pregabalin 150 Mg Capsule) 150 mg PO DAILY [facility] Last Admin: 09/03/21 09:01 Dose: 150 mg Documented by: Senna (Sennosides 1 Tablet) 2 tab PO HS [facility] Last Admin: 09/02/21 22:06 Dose: Not Given Documented by: Sodium Chloride (0.9 % Sodium Chloride 10 Ml Syringe) 10 ml IV Q8 [facility] Last Admin: 09/03/21 05:43 Dose: 10 ml Documented by: ABG Interpretation ABG results: 08/31/21 21:40 ABG Methemoglobin 0.3 L VBG pH 7.36 VBG pCO2 33.8 L VBG pO2 75.1 H VBG HCO3 18.8 L VBG Total CO2 19.8 L VBG O2 Saturation 89.7 H VBG Base Excess -6 L A/P Narrative A/P Narrative: Assessment: 76 year old female with a history of hypertension, type 2 diabetes mellitus, chronic kidney disease stage IV, gout, bladder cancer who developed chills, nausea approximately 4 days prior to presenting to the emergency department with a chief complaint of chills and weakness and tested positive for COVID. The patient was found to be hypoxic and had a acute on chronic kidney injury. Chest x-ray did not show any infiltrates. The patient has not been vaccinated for COVID. #Resolving acute on chronic kidney injury #Resolved hypoxic respiratory failure #Covid illness #Resolved SIRS, elevated procalcitonin #Generalized weakness #Hypertension #Type 2 diabetes mellitus #Gout #History of bladder cancer #Obesity Plan -Stop IV fluid, monitor urine output and renal function. -Dexamethasone 6 mg IV daily, deferred remdesivir due to renal failure. -Monitor respiratory status. -Discontinue Ceftriaxone. -Lantus and SSImedium. -Replace electrolytes as needed. -Hold home lisinopril, hydrochlorothiazide, torsemide, glipizide, dulaglutide. -Possibly resume home torsemide tomorrow. -Continue home atorvastatin. -Renally dosed Lyrica. -Renally dosed allopurinol. -PT consult. -Diabetic diet -DVT prophylaxis: Heparin SQ -CODE STATUS: Limited -Disposition: TBD Time Spent With Patient Time: Total time spent is greater than 50% in coordination of care (as documented) at patient's floor/unit and/or counseling patient:
[2021-09-03] MEDS: HYDROCODONE/APAP 7.5/325MG TABLET PO PRN (21:48)
[2021-09-03] MEDS: ALLOPURINOL 100 MG TABLET PO SCH (21:48)
[2021-09-03] MEDS: ATORVASTATIN 40 MG TABLET PO SCH (21:48)
[2021-09-03] MEDS: SENNOSIDES 1 TABLET PO SCH (21:49)
[2021-09-04] MEDS: 0.9 % SODIUM CHLORIDE 10 ML SYRINGE IV SCH ×3 (05:17→21:21)
[2021-09-04 07:28] LABS: Hemoglobin 12.5 g/dL (11.2-15.7); Mean Cell Volume 94.2 fL (80.0-100.0); Mean Corpuscular HGB Conc 32.1 g/dL (31.0-36.0); Platelet Count 152 K/mcL (140-440); RBC 4.14 M/mcL (3.59-5.38); Red Cell Distribution Width 14.9 % (11.5-14.5); WBC 11.2 K/mcL (4.5-11.0)
[2021-09-04 07:30] LABS: Mean Platelet Volume 12.9 fL (7.4-10.4)
[2021-09-04 07:48] LABS: ALT/SGPT 14 U/L (<40); AST/SGOT 14 U/L (<32); Albumin 2.8 gm/dL (3.2-5.2); Albumin/Globulin Ratio 0.9 (1.0-2.3); Alkaline Phosphatase 111 U/L (39-117); Bilirubin,Direct < 0.2 mg/dL (0-0.3); Bilirubin,Total 0.2 mg/dL (0.1-1.0); Blood Urea Nitrogen 42 mg/dL (8-23); Calcium 8.6 mg/dL (8.6-10.4); Carbon Dioxide 20 mmol/L (22-30); Chloride 107 mmol/L (96-108); Globulin 3.2 gm/dL (2.2-3.7); Glomerular Filtration Rate 34; Glucose 151 mg/dL (70-105); Lactate Dehydrogenase 247 U/L (135-225); Phosphorous 2.2 mg/dL (2.5-4.5); Triglycerides 206 mg/dL (<150); Uric Acid 4.2 mg/dL (2.5-8.0)
[2021-09-04 08:24] LABS: Lymphocytes % 31 % (15-49); Monocytes % (Manual) 10 % (1-12); Platelet Estimate NORMAL (Normal); RBC Morphology NORMAL (Normal); Segmented Neutrophils % 59 % (38-78)
[2021-09-04] MEDS: PREGABALIN 150 MG CAPSULE PO SCH (08:36)
[2021-09-04] MEDS: HYDROCODONE/APAP 7.5/325MG TABLET PO PRN ×2 (08:36→18:44)
[2021-09-04] MEDS: HEPARIN 5,000 UNIT/ML VIAL SQ SCH ×2 (08:37→21:14)
[2021-09-04] MEDS: DEXAMETHASONE 10 MG/ML VIAL IV SCH (08:37)
[2021-09-04] MEDS: INSULIN LISPRO 1 UNIT/0.01 ML UNIT SQ SCH ×4 (08:38→21:37)
[2021-09-04] MEDS: INSULIN GLARGINE, HUMAN 1 UNIT/0.01 ML SQ SCH (08:38)
[2021-09-04] MEDS: DOCUSATE SODIUM 100 MG CAPSULE PO SCH ×2 (08:39→21:15)
--- NOTE | 2021-09-04 11:49 | Internal Med Progress Note ---
SUBJECTIVE Subjective Patient information: Note initiated : 09/04/21 at 11:49 am Service Date, if different from initiated Date: [] Patient: Rosina Morris 76 y/o F admitted on 09/01/21 for weakness. Chief Complaint: [] Principal diagnosis: COVID Interval history: Ms. Morris is a 76 year old female with a history of hypertension, type 2 diabetes mellitus, chronic kidney disease stage IV, gout, bladder cancer who dev eloped chills, nausea approximately 4 days prior to presenting to the emergency department with a chief complaint of chills and weakness. In the emergency department, the patient was found to be positive for Covid via Monika rapid antigen test. The patient has not been vaccinated for COVID. Patient also had a oxygen requirement of 2 L/min via nasal cannula. Laboratory work in emergency department showed a acute kidney injury and azotemia with a creatinine of 4.4 and a BUN level of 101. The patient also had leukocytosis of 12.9 upon presentation to the emergency department. Hospital medicine was asked to admit the patient. In the emergency department, the patient's chief complaint was ch ills. She had received a substantial amount of IV fluid and was making clear urine via a Lopez catheter that been placed in the emergency department. The patient had received a dose of Decadron while waiting for bed in the emergency department. She also received ceftriaxone and azithromycin for possible community-acquired pneumonia. Chest x-ray did not show any infiltrate suggestive of either community-acquired or Covid pneumonia.UA was not suggestive of UTI. We discussed goals of care including CODE STATUS, the patient wishes to be DNR/DNI. 09/02 Some loose stools today, on room air and feeling better, renal function improving making urine. Stopped IV fluid, removed lopez catheter, resumed renally dosed Lyrica. Decreased Lantus to 5 units HS for morning hypoglycemia. Replaced potassium and magnesium. CRP and procalcitonin trending down, continued Ceftriaxone, blood and urine cultures pending. Bilateral renal ultrasound negative. 09/03 Loose stools resolved, continues on room air, renal function improving, good urine output. Sodium, potassium, and magnesium normal today. Blood cultures showing no growth to date, no evidence of UTI and repeat chest xray was clear after IV fluid. Discontinued Ceftriaxone. 09/04 High-grade temp of 99.8 this morning but overall improving clinically. Continues on room air. Mild leukocytosis today likely secondary to dexamethasone. Urine and blood cultures continue to show no growth. Renal function improving. Resumed home torsemide. Physical exam Head: Atraumatic, normal inspection. Eyes: normal appearance, no scleral icterus. Neck: full ROM Respiratory: Nasal cannula oxygen no respiratory distress. Cardiovascular: normal rate and rhythm, S1, S2. GI/Abdominal: soft, nontender, no guarding. Extremities: full range of motion, nontender. Neurological: CN II-XII intact, intact motor, intact sensation. Psychiatric: normal mood. Skin: warm, normal color Constitutional Vitals: Vital Signs Temp Pulse Resp BP Pulse Ox 99.8 F H 61 18 143/56 93 09/04/21 07:43 09/04/21 07:43 09/04/21 07:43 09/04/21 07:43 09/04/21 07:43 Period Temp Pulse Resp BP Sys/Pedersen Pulse Ox Last 24 Hr 97.7 F-99.8 F 46-82 15-20 128-153/41-65 92-97 Intake and Output 09/03/21 09/04/21 09/04/21 21:59 05:59 13:59 Intake Total 825 300 Output Total 1050 Balance -225 300 Weight 77.309 kg Intake & Output: Intake & Output 09/03/21 09/04/21 09/04/21 21:59 05:59 13:59 Intake Total 825 300 Output Total 1050 Balance -225 300 Weight 77.309 kg Intake: Oral 825 300 Output: Void Amount 450 Urine/Stool Mix 600 Other: Meal Dinner Percent of Meal Consumed 100% Feeding Ability Independent Urine Appearance Clear Urine Color Dark Yellow Urine Odor Normal Stool Size Small Stool Color Brown Stool Consistency Liquid Loose Loose # Voids 1 1 # Bowel Movements 1 1 OBJ DATA Labs CBC & Chem 7: 09/04/21 05:15 09/04/21 05:15 Labs: Abnormal Lab Results 09/04/21 09/04/21 09/03/21 05:15 05:15 05:16 WBC 11.2 H Hgb Hct RDW 14.9 H MPV 12.9 H Sodium Potassium Chloride 109 H Carbon Dioxide 20 L 21 L BUN 42 H 52 H Creatinine 1.5 H 1.8 H Glucose 151 H 158 H Calcium 8.3 L Phosphorus 2.2 L Magnesium Lactate Dehydrogenase 247 H 245 H C-Reactive Protein Total Protein Albumin 2.8 L 2.7 L Albumin/Globulin Ratio 0.9 L 0.8 L Triglycerides 206 H Procalcitonin Urine Occult Blood Urine Mucus 09/03/21 09/02/21 09/02/21 05:16 05:25 05:25 WBC Hgb Hct RDW 14.8 H MPV 12.9 H Sodium 147 H Potassium 3.0 L Chloride 113 H Carbon Dioxide 21 L BUN 75 H Creatinine 2.4 H Glucose 41 L Calcium 7.6 L Phosphorus Magnesium 1.5 L Lactate Dehydrogenase C-Reactive Protein 6.80 H Total Protein 5.8 L Albumin 2.5 L Albumin/Globulin Ratio 0.8 L Triglycerides 171 H Procalcitonin 0.15 H Urine Occult Blood Urine Mucus 09/02/21 09/01/21 05:25 17:55 WBC Hgb 11.0 L Hct 33.8 L RDW 14.7 H MPV 12.9 H Sodium Potassium Chloride Carbon Dioxide BUN Creatinine Glucose Calcium Phosphorus Magnesium Lactate Dehydrogenase C-Reactive Protein Total Protein Albumin Albumin/Globulin Ratio Triglycerides Procalcitonin Urine Occult Blood Trace-intact A Urine Mucus Few A Meds: Medications Acetaminophen (Acetaminophen 325 Mg Tablet) 650 mg PO Q6HP PRN; Protocol PRN Reason: Per Pain Protocol/Fever > 101 Last Admin: 09/02/21 21:27 Dose: 650 mg Documented by: Hydrocodone Bitart/Acetaminophen (Hydrocodone/Apap 7.5/325mg Tablet) 1 tab PO BIDP PRN; Protocol PRN Reason: Per Pain Protocol Last Admin: 09/04/21 08:36 Dose: 1 tab Documented by: Allopurinol (Allopurinol 100 Mg Tablet) 100 mg PO HS [facility] Last Admin: 09/03/21 21:48 Dose: 100 mg Documented by: Atorvastatin Calcium (Atorvastatin 40 Mg Tablet) 80 mg PO QHS [facility] Last Admin: 09/03/21 21:48 Dose: 80 mg Documented by: Dexamethasone (Dexamethasone 10 Mg/Ml Vial) 6 mg IV DAILY [facility] Last Admin: 09/04/21 08:37 Dose: 6 mg Documented by: Dextrose (Dextrose 50% 50 Ml Vial) 0 ml IV UD PRN PRN Reason: Hypoglycemia Diagnostic Test (Pha) (Accu-Chek 1 Each Strip) 1 each FS ACHS [facility] Last Admin: 09/04/21 07:44 Dose: 1 each Documented by: Docusate Sodium (Docusate Sodium 100 Mg Capsule) 100 mg PO BID [facility] Last Admin: 09/04/21 08:39 Dose: Not Given Documented by: Glucose (Dextrose 31 Gm Oral.Susp) 15 gm PO PRN PRN PRN Reason: Hypoglycemia Heparin Sodium (Porcine) (Heparin 5,000 Unit/Ml Vial) 5,000 unit SQ Q12 [facility] Last Admin: 09/04/21 08:37 Dose: 5,000 unit Documented by: Insulin Glargine (Insulin Glargine, Human 1 Unit/0.01 Ml) 5 unit SQ DAILY [facility] Last Admin: 09/04/21 08:38 Dose: 5 units Documented by: Insulin Human Lispro (Insulin Lispro 1 Unit/0.01 Ml Unit) 0 unit SQ [facility]; Protocol Last Admin: 09/04/21 08:38 Dose: 2 units Documented by: Ondansetron HCl (Ondansetron 4 Mg/2 Ml Vial) 4 mg IV Q6HP PRN PRN Reason: Nausea And Vomiting Pregabalin (Pregabalin 150 Mg Capsule) 150 mg PO DAILY [facility] Last Admin: 09/04/21 08:36 Dose: 150 mg Documented by: Senna (Sennosides 1 Tablet) 2 tab PO HS [facility] Last Admin: 09/03/21 21:49 Dose: Not Given Documented by: Sodium Chloride (0.9 % Sodium Chloride 10 Ml Syringe) 10 ml IV Q8 [facility] Last Admin: 09/04/21 05:17 Dose: 10 ml Documented by: ABG Interpretation ABG results: 08/31/21 21:40 ABG Methemoglobin 0.3 L VBG pH 7.36 VBG pCO2 33.8 L VBG pO2 75.1 H VBG HCO3 18.8 L VBG Total CO2 19.8 L VBG O2 Saturation 89.7 H VBG Base Excess -6 L A/P Narrative A/P Narrative: Assessment: 76 year old female with a history of hypertension, type 2 diabetes mellitus, chronic kidney disease stage IV, gout, bladder cancer who developed chills, nausea approximately 4 days prior to presenting to the emergency department with a chief complaint of chills and weakness and tested positive for COVID. The patient was found to be hypoxic and had a acute on chronic kidney injury. Chest x-ray did not show any infiltrates. The patient has not been vaccinated for COVID. The patient was started on dexamethasone IV for hypoxia in the setting of Covid, remdesivir was deferred due to renal failure. She was treated with ceftriaxone for about 48 hours however that was discontinued after blood, urine cultures did not growany organism and repeat chest x-ray did not show any infiltrates. Hypoxia resolved, renal function has improved. Patient continues to have generalized weakness, awaiting physical therapy recommendations. #Generalized weakness due to Covid illness #Resolving acute on chronic kidney injury #Resolved hypoxic respiratory failure #Covid illness #Resolved SIRS, elevated procalcitonin #Hypertension #Type 2 diabetes mellitus #Gout #History of bladder cancer #Obesity Plan -Dexamethasone 6 mg IV daily, deferred remdesivir due to renal failure. -Monitor respiratory status. -Lantus and SSImedium. -Replace electrolytes as needed. -Hold home lisinopril, hydrochlorothiazide, glipizide, dulaglutide. -Resume home torsemide. -Continue home atorvastatin. -Renally dosed Lyrica. -Renally dosed allopurinol. -PT consult. -Diabetic diet -DVT prophylaxis: Heparin SQ -CODE STATUS: Limited -Disposition: TBD Time Spent With Patient Time: Total time spent is greater than 50% in coordination of care (as documented) at patient's floor/unit and/or counseling patient:
[2021-09-04] MEDS: TORSEMIDE 10 MG TABLET PO SCH (12:14)
--- NOTE | 2021-09-04 14:15 | Internal Med Progress Note ---
SUBJECTIVE Subjective Patient information: Note initiated : 09/04/21 at 2:11 pm Service Date, if different from initiated Date: [] Patient: Rosina Morris 76 y/o F admitted on 09/01/21 for weakness. Chief Complaint: [] Principal diagnosis: COVID Interval history: Ms. Morris is a 76 year old female with a history of hypertension, type 2 diabetes mellitus, chronic kidney disease stage IV, gout, bladder cancer who developed chills, nausea approximately 4 days prior to presenting to the emergency department with a chief complaint of chills and weakness. In the emergency department, the patient was found to be positive for Covid via Monika rapid antigen test. The patient has not been vaccinated for COVID. Patient also had a oxygen requirement of 2 L/min via nasal cannula. Laboratory work in emergency department showed a acute kidney injury and azotemia with a creatinine of 4.4 and a BUN level of 101. The patient also had leukocytosis of 12.9 upon presentation to the emergency department. Hospital medicine was asked to admit the patient. In the emergency department, the patient's chief complaint was chi lls. She had received a substantial amount of IV fluid and was making clear urine via a Lopez catheter that been placed in the emergency department. The patient had received a dose of Decadron while waiting for bed in the emergency department. She also received ceftriaxone and azithromycin for possible community-acquired pneumonia. Chest x-ray did not show any infiltrate suggestive of either community-acquired or Covid pneumonia.UA was not suggestive of UTI. We discussed goals of care including CODE STATUS, the patient wishes to be DNR/DNI. 09/02 Some loose stools today, on room air and feeling better, renal function improving making urine. Stopped IV fluid, removed lopez catheter, resumed renally dosed Lyrica. Decreased Lantus to 5 units HS for morning hypoglycemia. Replaced potassium and magnesium. CRP and procalcitonin trending down, continued Ceftriaxone, blood and urine cultures pending. Bilateral renal ultrasound negative. 09/03 Loose stools resolved, continues on room air, renal function improving, good urine output. Sodium, potassium, and magnesium normal today. Blood cultures showing no growth to date, no evidence of UTI and repeat chest xray was clear after IV fluid. Discontinued Ceftriaxone. 09/04 High-grade temp of 99.8 this morning but overall improving clinically. Continues on room air. Mild leukocytosis today likely secondary to dexamethasone. Urine and blood cultures continue to show no growth. Renal function improving. Resumed home torsemide. Physical exam Head: Atraumatic, normal inspection. Eyes: normal appearance, no scleral icterus. Neck: full ROM Respiratory: Nasal cannula oxygen no respiratory distress. Cardiovascular: normal rate and rhythm, S1, S2. GI/Abdominal: soft, nontender, no guarding. Extremities: full range of motion, nontender. Neurological: CN II-XII intact, intact motor, intact sensation. Psychiatric: normal mood. Skin: warm, normal color Constitutional Vitals: Vital Signs Temp Pulse Resp BP Pulse Ox 98.7 F 65 16 132/62 94 09/04/21 12:00 09/04/21 12:00 09/04/21 12:00 09/04/21 12:00 09/04/21 12:00 Period Temp Pulse Resp BP Sys/Pedersen Pulse Ox Last 24 Hr 97.7 F-99.8 F 56-82 15-18 130-153/56-65 92-97 Intake and Output 09/04/21 09/04/21 09/04/21 05:59 13:59 21:59 Intake Total 300 Balance 300 Intake & Output: Intake & Output 09/04/21 09/04/21 09/04/21 05:59 13:59 21:59 Intake Total 300 Balance 300 Intake: Oral 300 Other: Stool Consistency Loose # Voids 1 # Bowel Movements 1 Exam: General: Alert, Awake, No acute Distress, obese Eyes/N/T: EOMI, Head/Neck: neck supple, CV: RRR, No murmurs, Pulm: Clear b/l, no wheezing/rhonchi/rales Abd: soft, nontender, +BS x4 Ext: no clubbing/cyanosis/edema Neuro: Alert, no focal deficits, moves all extremities, Skin: warm/dry OBJ DATA Labs CBC & Chem 7: 09/04/21 05:15 09/04/21 05:15 Labs: Abnormal Lab Results 09/04/21 09/04/21 09/03/21 05:15 05:15 05:16 WBC 11.2 H Hgb Hct RDW 14.9 H MPV 12.9 H Sodium Potassium Chloride 109 H Carbon Dioxide 20 L 21 L BUN 42 H 52 H Creatinine 1.5 H 1.8 H Glucose 151 H 158 H Calcium 8.3 L Phosphorus 2.2 L Magnesium Lactate Dehydrogenase 247 H 245 H C-Reactive Protein Total Protein Albumin 2.8 L 2.7 L Albumin/Globulin Ratio 0.9 L 0.8 L Triglycerides 206 H Procalcitonin Urine Occult Blood Urine Mucus 09/03/21 09/02/21 09/02/21 05:16 05:25 05:25 WBC Hgb Hct RDW 14.8 H MPV 12.9 H Sodium 147 H Potassium 3.0 L Chloride 113 H Carbon Dioxide 21 L BUN 75 H Creatinine 2.4 H Glucose 41 L Calcium 7.6 L Phosphorus Magnesium 1.5 L Lactate Dehydrogenase C-Reactive Protein 6.80 H Total Protein 5.8 L Albumin 2.5 L Albumin/Globulin Ratio 0.8 L Triglycerides 171 H Procalcitonin 0.15 H Urine Occult Blood Urine Mucus 09/02/21 09/01/21 05:25 17:55 WBC Hgb 11.0 L Hct 33.8 L RDW 14.7 H MPV 12.9 H Sodium Potassium Chloride Carbon Dioxide BUN Creatinine Glucose Calcium Phosphorus Magnesium Lactate Dehydrogenase C-Reactive Protein Total Protein Albumin Albumin/Globulin Ratio Triglycerides Procalcitonin Urine Occult Blood Trace-intact A Urine Mucus Few A Meds: Medications Acetaminophen (Acetaminophen 325 Mg Tablet) 650 mg PO Q6HP PRN; Protocol PRN Reason: Per Pain Protocol/Fever > 101 Last Admin: 09/02/21 21:27 Dose: 650 mg Documented by: Hydrocodone Bitart/Acetaminophen (Hydrocodone/Apap 7.5/325mg Tablet) 1 tab PO BIDP PRN; Protocol PRN Reason: Per Pain Protocol Last Admin: 09/04/21 08:36 Dose: 1 tab Documented by: Allopurinol (Allopurinol 100 Mg Tablet) 100 mg PO HS [facility] Last Admin: 09/03/21 21:48 Dose: 100 mg Documented by: Atorvastatin Calcium (Atorvastatin 40 Mg Tablet) 80 mg PO QHS [facility] Last Admin: 09/03/21 21:48 Dose: 80 mg Documented by: Dexamethasone (Dexamethasone 10 Mg/Ml Vial) 6 mg IV DAILY [facility] Last Admin: 09/04/21 08:37 Dose: 6 mg Documented by: Dextrose (Dextrose 50% 50 Ml Vial) 0 ml IV UD PRN PRN Reason: Hypoglycemia Diagnostic Test (Pha) (Accu-Chek 1 Each Strip) 1 each FS [facility] Last Admin: 09/04/21 11:49 Dose: 1 each Documented by: Docusate Sodium (Docusate Sodium 100 Mg Capsule) 100 mg PO BID [facility] Last Admin: 09/04/21 08:39 Dose: Not Given Documented by: Glucose (Dextrose 31 Gm Oral.Susp) 15 gm PO PRN PRN PRN Reason: Hypoglycemia Heparin Sodium (Porcine) (Heparin 5,000 Unit/Ml Vial) 5,000 unit SQ Q12 [facility] Last Admin: 09/04/21 08:37 Dose: 5,000 unit Documented by: Insulin Glargine (Insulin Glargine, Human 1 Unit/0.01 Ml) 5 unit SQ DAILY [facility] Last Admin: 09/04/21 08:38 Dose: 5 units Documented by: Insulin Human Lispro (Insulin Lispro 1 Unit/0.01 Ml Unit) 0 unit SQ [facility]; Protocol Last Admin: 09/04/21 12:15 Dose: 8 units Documented by: Ondansetron HCl (Ondansetron 4 Mg/2 Ml Vial) 4 mg IV Q6HP PRN PRN Reason: Nausea And Vomiting Pregabalin (Pregabalin 150 Mg Capsule) 150 mg PO DAILY [facility] Last Admin: 09/04/21 08:36 Dose: 150 mg Documented by: Senna (Sennosides 1 Tablet) 2 tab PO HS [facility] Last Admin: 09/03/21 21:49 Dose: Not Given Documented by: Sodium Chloride (0.9 % Sodium Chloride 10 Ml Syringe) 10 ml IV Q8 [facility] Last Admin: 09/04/21 05:17 Dose: 10 ml Documented by: Torsemide (Torsemide 10 Mg Tablet) 30 mg PO DAILY [facility] Last Admin: 09/04/21 12:14 Dose: 30 mg Documented by: ABG Interpretation ABG results: 08/31/21 21:40 ABG Methemoglobin 0.3 L VBG pH 7.36 VBG pCO2 33.8 L VBG pO2 75.1 H VBG HCO3 18.8 L VBG Total CO2 19.8 L VBG O2 Saturation 89.7 H VBG Base Excess -6 L A/P Narrative A/P Narrative: A: #Generalized weakness: due to Covid illness #Acute respiratory failure: Resolved #Covid illness: #Resolved SIRS, elevated procalcitonin #MARLON on CKD IIIb: Resolving #HTN: #DM 2: #Gout / History of bladder cancer #Obesity: BMI 32 Plan -Dexamethasone 6 mg IV daily, deferred remdesivir due to renal failure. -Monitor respiratory status. -Lantus and SSI -Hold home lisinopril/hydrochlorothiazide, glipizide/dulaglutide. -Resume home torsemide. -Continue home atorvastatin. -Renally dosed Lyrica/allopurinol. -PT consult. -prophylaxis: Heparin SQ CODE STATUS: Limited Time Spent With Patient Time: Total time spent is greater than 50% in coordination of care (as documented) at patient's floor/unit and/or counseling patient:
[2021-09-04] MEDS: ACETAMINOPHEN 325 MG TABLET PO PRN ×2 (17:11→23:30)
[2021-09-04] MEDS ORDERED: PHENAZOPYRIDINE 200 MG TABLET PO PRN (17:29)
[2021-09-04] MEDS ORDERED: PHENAZOPYRIDINE 200 MG TABLET PO ONE (17:29)
[2021-09-04] MEDS: ALLOPURINOL 100 MG TABLET PO SCH (21:14)
[2021-09-04] MEDS: ATORVASTATIN 40 MG TABLET PO SCH (21:15)
[2021-09-04] MEDS: SENNOSIDES 1 TABLET PO SCH (21:16)
[2021-09-05] MEDS: 0.9 % SODIUM CHLORIDE 10 ML SYRINGE IV SCH ×2 (03:59→12:13)
[2021-09-05 06:56] LABS: Basophils # (Auto) 0.01 K/mcL (0.00-0.30); Basophils % (Auto) 0.1 % (0.0-2.0); Eosinophils # (Auto) 0.01 K/mcL (0.00-0.70); Eosinophils % (Auto) 0.1 % (0.0-7.0); Hematocrit 38.2 % (34.1-44.9); Hemoglobin 12.5 g/dL (11.2-15.7); Lymphocytes # (Auto) 3.14 K/mcL (1.50-4.80); Lymphocytes % (Auto) 30.7 % (15.5-49.0); Mean Cell Volume 92.3 fL (80.0-100.0); Mean Corpuscular HGB Conc 32.7 g/dL (31.0-36.0); Monocytes # (Auto) 0.76 K/mcL (0.10-0.90); Monocytes % (Auto) 7.4 % (1.0-12.0); Neutrophils % (Auto) 61.7 % (38.0-78.0); Platelet Count 142 K/mcL (140-440); RBC 4.14 M/mcL (3.59-5.38); Red Cell Distribution Width 14.8 % (11.5-14.5); WBC 10.2 K/mcL (4.5-11.0)
[2021-09-05 07:38] LABS: Blood Urea Nitrogen 43 mg/dL (8-23); Calcium 8.5 mg/dL (8.6-10.4); Carbon Dioxide 21 mmol/L (22-30); Chloride 104 mmol/L (96-108); Glomerular Filtration Rate 37; Glucose 154 mg/dL (70-105)
--- NOTE | 2021-09-05 08:28 | Internal Med Progress Note ---
SUBJECTIVE Subjective Patient information: Note initiated : 09/05/21 at 8:26 am Service Date, if different from initiated Date: [] Patient: Rosina Morris 76 y/o F admitted on 09/01/21 for weakness. Chief Complaint: [] Principal diagnosis: COVID Interval history: Ms. Morris is a 76 year old female with a history of hypertension, type 2 diabetes mellitus, chronic kidney disease stage IV, gout, bladder cancer who developed chills, nausea approximately 4 days prior to presenting to the emergency department with a chief complaint of chills and weakness. In the emergency department, the patient was found to be positive for Covid via Monika rapid antigen test. The patient has not been vaccinated for COVID. Patient also had a oxygen requirement of 2 L/min via nasal cannula. Laboratory work in emergency department showed a acute kidney injury and azotemia with a creatinine of 4.4 and a BUN level of 101. The patient also had leukocytosis of 12.9 upon presentation to the emergency department. Hospital medicine was asked to admit the patient. In the emergency department, the patient's chief complaint was chi lls. She had received a substantial amount of IV fluid and was making clear urine via a Lopez catheter that been placed in the emergency department. The patient had received a dose of Decadron while waiting for bed in the emergency department. She also received ceftriaxone and azithromycin for possible community-acquired pneumonia. Chest x-ray did not show any infiltrate suggestive of either community-acquired or Covid pneumonia.UA was not suggestive of UTI. We discussed goals of care including CODE STATUS, the patient wishes to be DNR/DNI. 09/02 Some loose stools today, on room air and feeling better, renal function improving making urine. Stopped IV fluid, removed lopez catheter, resumed renally dosed Lyrica. Decreased Lantus to 5 units HS for morning hypoglycemia. Replaced potassium and magnesium. CRP and procalcitonin trending down, continued Ceftriaxone, blood and urine cultures pending. Bilateral renal ultrasound negative. 09/03 Loose stools resolved, continues on room air, renal function improving, good urine output. Sodium, potassium, and magnesium normal today. Blood cultures showing no growth to date, no evidence of UTI and repeat chest xray was clear after IV fluid. Discontinued Ceftriaxone. 09/04 High-grade temp of 99.8 this morning but overall improving clinically. Continues on room air. Mild leukocytosis today likely secondary to dexamethasone. Urine and blood cultures continue to show no growth. Renal function improving. Resumed home torsemide. 09/05 On room air. No overnight event or new complaints. Afebrile. Renal function improved. CRP improved. Review of Systems: denies headache/fever/chills/nausea/vomiting/chest or abdominal pain/diarrhea. Otherwise see above. Constitutional Vitals: Vital Signs Temp Pulse Resp BP Pulse Ox 97.2 F 60 16 126/57 93 09/05/21 03:47 09/05/21 03:47 09/05/21 03:47 09/05/21 03:47 09/05/21 03:47 Period Temp Pulse Resp BP Sys/Pedersen Pulse Ox Last 24 Hr 97.1 F-99.0 F 52-65 14-16 126-152/57-82 93-96 Intake and Output 09/04/21 09/05/21 09/05/21 21:59 05:59 13:59 Intake Total 1200 240 Balance 1200 240 Weight 74.474 kg Intake & Output: Intake & Output 09/04/21 09/05/21 09/05/21 21:59 05:59 13:59 Intake Total 1200 240 Balance 1200 240 Weight 74.474 kg Intake: Oral 1200 240 Other: Meal Lunch Percent of Meal Consumed 100 Feeding Ability Independent Urine Appearance Clear Urine Color Bright Yellow Urine Odor Normal Stool Size Small Moderate Stool Color Brown Brown Stool Consistency Loose Soft # Voids 3 1 # Bowel Movements 2 Exam: General: Alert, Awake, No acute Distress, obese Eyes/N/T: EOMI, Head/Neck: neck supple, CV: RRR, No murmurs, Pulm: Clear b/l, no wheezing/rhonchi/rales Abd: soft, nontender, +BS x4 Ext: no clubbing/cyanosis/edema Neuro: Alert, no focal deficits, moves all extremities, Skin: warm/dry OBJ DATA Labs CBC & Chem 7: 09/05/21 05:14 09/05/21 05:14 Labs: Abnormal Lab Results 09/05/21 09/05/21 09/04/21 05:14 05:14 05:15 WBC Hgb Hct RDW 14.8 H MPV 13.0 H Sodium Potassium Chloride Carbon Dioxide 21 L 20 L BUN 43 H 42 H Creatinine 1.4 H 1.5 H Glucose 154 H 151 H Calcium 8.5 L Phosphorus 2.2 L Magnesium Lactate Dehydrogenase 247 H C-Reactive Protein 4.40 H Total Protein Albumin 2.8 L Albumin/Globulin Ratio 0.9 L Triglycerides 206 H Procalcitonin 09/04/21 09/03/21 09/03/21 05:15 05:16 05:16 WBC 11.2 H Hgb Hct RDW 14.9 H 14.8 H MPV 12.9 H 12.9 H Sodium Potassium Chloride 109 H Carbon Dioxide 21 L BUN 52 H Creatinine 1.8 H Glucose 158 H Calcium 8.3 L Phosphorus Magnesium Lactate Dehydrogenase 245 H C-Reactive Protein Total Protein Albumin 2.7 L Albumin/Globulin Ratio 0.8 L Triglycerides Procalcitonin 09/02/21 09/02/21 09/02/21 05:25 05:25 05:25 WBC Hgb 11.0 L Hct 33.8 L RDW 14.7 H MPV 12.9 H Sodium 147 H Potassium 3.0 L Chloride 113 H Carbon Dioxide 21 L BUN 75 H Creatinine 2.4 H Glucose 41 L Calcium 7.6 L Phosphorus Magnesium 1.5 L Lactate Dehydrogenase C-Reactive Protein 6.80 H Total Protein 5.8 L Albumin 2.5 L Albumin/Globulin Ratio 0.8 L Triglycerides 171 H Procalcitonin 0.15 H Meds: Medications Acetaminophen (Acetaminophen 325 Mg Tablet) 650 mg PO Q6HP PRN; Protocol PRN Reason: Per Pain Protocol/Fever > 101 Last Admin: 09/04/21 23:30 Dose: 650 mg Documented by: Hydrocodone Bitart/Acetaminophen (Hydrocodone/Apap 7.5/325mg Tablet) 1 tab PO BIDP PRN; Protocol PRN Reason: Per Pain Protocol Last Admin: 09/04/21 18:44 Dose: 1 tab Documented by: Allopurinol (Allopurinol 100 Mg Tablet) 100 mg PO HS [facility] Last Admin: 09/04/21 21:14 Dose: 100 mg Documented by: Atorvastatin Calcium (Atorvastatin 40 Mg Tablet) 80 mg PO QHS [facility] Last Admin: 09/04/21 21:15 Dose: 80 mg Documented by: Dexamethasone (Dexamethasone 10 Mg/Ml Vial) 6 mg IV DAILY [facility] Last Admin: 09/04/21 08:37 Dose: 6 mg Documented by: Dextrose (Dextrose 50% 50 Ml Vial) 0 ml IV UD PRN PRN Reason: Hypoglycemia Diagnostic Test (Pha) (Accu-Chek 1 Each Strip) 1 each FS ACHS [facility] Last Admin: 09/04/21 21:21 Dose: 1 each Documented by: Docusate Sodium (Docusate Sodium 100 Mg Capsule) 100 mg PO BID [facility] Last Admin: 09/04/21 21:15 Dose: Not Given Documented by: Glucose (Dextrose 31 Gm Oral.Susp) 15 gm PO PRN PRN PRN Reason: Hypoglycemia Heparin Sodium (Porcine) (Heparin 5,000 Unit/Ml Vial) 5,000 unit SQ Q12 [facility] Last Admin: 09/04/21 21:14 Dose: 5,000 unit Documented by: Insulin Glargine (Insulin Glargine, Human 1 Unit/0.01 Ml) 5 unit SQ DAILY [facility] Last Admin: 09/04/21 08:38 Dose: 5 units Documented by: Insulin Human Lispro (Insulin Lispro 1 Unit/0.01 Ml Unit) [address] [facility]; Protocol Last Admin: 09/04/21 21:37 Dose: 10 units Documented by: Ondansetron HCl (Ondansetron 4 Mg/2 Ml Vial) 4 mg IV Q6HP PRN PRN Reason: Nausea And Vomiting Phenazopyridine HCl (Phenazopyridine 200 Mg Tablet) 200 mg PO BIDP PRN PRN Reason: PAINFUL URINATION Stop: 09/06/21 12:00 Pregabalin (Pregabalin 150 Mg Capsule) 150 mg PO DAILY [facility] Last Admin: 09/04/21 08:36 Dose: 150 mg Documented by: Senna (Sennosides 1 Tablet) 2 tab PO HS [facility] Last Admin: 09/04/21 21:16 Dose: Not Given Documented by: Sodium Chloride (0.9 % Sodium Chloride 10 Ml Syringe) 10 ml IV Q8 [facility] Last Admin: 09/05/21 03:59 Dose: 10 ml Documented by: Torsemide (Torsemide 10 Mg Tablet) 30 mg PO DAILY [facility] Last Admin: 09/04/21 12:14 Dose: 30 mg Documented by: ABG Interpretation ABG results: 08/31/21 21:40 ABG Methemoglobin 0.3 L VBG pH 7.36 VBG pCO2 33.8 L VBG pO2 75.1 H VBG HCO3 18.8 L VBG Total CO2 19.8 L VBG O2 Saturation 89.7 H VBG Base Excess -6 L A/P Narrative A/P Narrative: A: #Generalized weakness: due to Covid illness #Acute respiratory failure: Resolved #Covid illness: #Resolved SIRS, elevated procalcitonin improved #MARLON on CKD IIIb: Resolving #HTN: #DM 2: #Gout / History of bladder cancer #Obesity: BMI 32 Plan -Dexamethasone 6 mg IV daily, deferred remdesivir due to renal failure. -Lantus and SSI -Hold home lisinopril/hydrochlorothiazide, glipizide/dulaglutide. -Resume home torsemide. -Continue home atorvastatin. -Renally dosed Lyrica/allopurinol. -PT consult. -prophylaxis: Heparin SQ CODE STATUS: Limited Time Spent With Patient Time: Total time spent is greater than 50% in coordination of care (as documented) at patient's floor/unit and/or counseling patient:
[2021-09-05] MEDS: ACETAMINOPHEN 325 MG TABLET PO PRN (08:34)
[2021-09-05] MEDS: PREGABALIN 150 MG CAPSULE PO SCH (08:35)
[2021-09-05] MEDS: TORSEMIDE 10 MG TABLET PO SCH (08:35)
[2021-09-05] MEDS: HEPARIN 5,000 UNIT/ML VIAL SQ SCH (08:35)
[2021-09-05] MEDS: DEXAMETHASONE 10 MG/ML VIAL IV SCH (08:35)
[2021-09-05] MEDS: DOCUSATE SODIUM 100 MG CAPSULE PO SCH (08:36)
[2021-09-05] MEDS ORDERED: INSULIN GLARGINE, HUMAN 1 UNIT/0.01 ML SQ SCH (09:00)
[2021-09-05] MEDS: INSULIN LISPRO 1 UNIT/0.01 ML UNIT SQ SCH ×2 (10:08→12:13)
[2021-09-05 10:46] LABS: Hemoglobin A1C 9.5 % Hgb (4.0-6.0)
--- NOTE | 2021-09-05 11:42 | Discharge Summary ---
Discharge Provider Provider Patient information: Note initiated : 09/05/21 at 11:41 am Service Date, if different from initiated Date: [] Patient: Rosina Morris 76 y/o F admitted on 09/01/21 for weakness. Chief Complaint: [] Date of admission: 09/01/21 19:21 Discharge date: 09/05/21 Primary care physician: SUZY Cameron Consults: 09/01/21 Consult to Physician [CONS] Stat Comment: Consulting Provider: Jah Vera Reason For Exam: Physician to Consult Discharge Meds Discharge Medications Home Medications atorvastatin 80 mg tablet 80 mg PO QHS tab 05/08/17 [History Confirmed 09/02/21 Last Taken Unknown] docusate sodium 100 mg capsule (Stool Softener) 100 mg PO QDAY 06/11/20 [History Confirmed 09/02/21 Last Taken Unknown] insulin glargine 100 unit/mL (3 mL) subcutaneous pen (Basaglar KwikPen U-100 Insulin) 10 unit SUBCUT BID 06/25/20 [History Confirmed 09/02/21 Last Taken Unknown] insulin lispro 100 unit/mL subcutaneous pen (Humalog KwikPen (U-100) Insulin) See Rx Instructions .ROUTE .COMPLEX 06/25/20 [History Confirmed 09/02/21 Last Taken Unknown] allopurinol 300 mg tablet 300 mg PO QDAY #90 tab 05/30/21 [Rx Confirmed 09/02/21 Last Taken Unknown] blood sugar diagnostic (Accu-Chek Guide test strips) 09/02/21 [History Confirmed 09/02/21 Last Taken Unknown] blood-glucose meter (Accu-Chek Guide Glucose Meter) 09/02/21 [History Confirmed 09/02/21 Last Taken Unknown] diclofenac sodium 1 % topical gel 2 g TOPICAL QID 09/02/21 [History Confirmed 09/02/21 Last Taken Unknown] dulaglutide 3 mg/0.5 mL subcutaneous pen injector (Trulicity) 0.5 ml SUBCUT WEEKLY 09/02/21 [History Confirmed 09/02/21 Last Taken Unknown] hydrocodone 7.5 mg-acetaminophen 325 mg tablet 1 tab PO BIDP PRN 09/02/21 [History Confirmed 09/02/21 Last Taken Unknown] lancets (Accu-Chek Softclix Lancets) 09/02/21 [History Confirmed 09/02/21 Last Taken Unknown] pregabalin 150 mg capsule See Rx Instructions .ROUTE .COMPLEX 09/02/21 [History Confirmed 09/02/21 Last Taken Unknown] torsemide 20 mg tablet 1.5 tab PO QDAY 09/02/21 [History Confirmed 09/02/21 Last Taken Unknown] COURSE Hospital Course Hospital course: Interval history: Ms. Morris is a 76 year old female with a history of hypertension, type 2 diabetes mellitus, chronic kidney disease stage IV, gout, bladder cancer who developed chills, nausea approximately 4 days prior to presenting to the emergency department with a chief complaint of chills and weakness. In the emergency department, the patient was found to be positive for Covid via Monika rapid antigen test. The patient has not been vaccinated for COVID. Patient also had a oxygen requirement of 2 L/min via nasal cannula. Laboratory work in emergency department showed a acute kidney injury and azotemia with a creatinine of 4.4 and a BUN level of 101. The patient also had leukocytosis of 12.9 upon presentation to the emergency department. Hospital medicine was asked to admit the patient. In the emergency department, the patient's chief complaint was chills. She had received a substantial amount of IV fluid and was making clear urine via a Lopez catheter that been placed in the emergency department. The patient had received a dose of Decadron while waiting for bed in the emergency department. She also received ceftriaxone and azithromycin for possible community-acquired pneumonia. Chest x-ray did not show any infiltrate suggestive of either community-acquired or Covid pneumonia.UA was not suggestive of UTI. We discussed goals of care including CODE STATUS, the patient wishes to be DNR/DNI. 09/02 Some loose stools today, on room air and feeling better, renal function improving making urine. Stopped IV fluid, removed lopez catheter, resumed renally dosed Lyrica. Decreased Lantus to 5 units HS for morning hypoglycemia. Replaced potassium and magnesium. CRP and procalcitonin trending down, continued Ceftriaxone, blood and urine cultures pending. Bilateral renal ultrasound negative. 09/03 Loose stools resolved, continues on room air, renal function improving, good urine output. Sodium, potassium, and magnesium normal today. Blood cultures showing no growth to date, no evidence of UTI and repeat chest xray was clear after IV fluid. Discontinued Ceftriaxone. 09/04 High-grade temp of 99.8 this morning but overall improving clinically. Continues on room air. Mild leukocytosis today likely secondary to dexamethasone. Urine and blood cultures continue to show no growth. Renal function improving. Resumed home torsemide. 09/05 On room air. No overnight event or new complaints. Afebrile. Renal function improved. CRP improved. A: #Generalized weakness: due to Covid illness #Acute respiratory failure: Resolved #Covid illness: #Resolved SIRS #MARLON on CKD IIIb: Resolving #HTN: #DM 2: #Gout / History of bladder cancer #Obesity: BMI 32 Discharge diagnosis: Generalized weakness due to Covid illness pox resolved SIRS MARLON Secondary discharge diagnosis: Hypertension diabetes gout obesity Time Spent with Patient Time attestation: Total time spent providing and/or coordinating discharge services: Time spent: Greater than 30 minutes EXAM Constitutional Vitals: Temp Pulse Resp BP Pulse Ox 97.8 F 72 20 133/62 96 09/05/21 08:00 09/05/21 08:00 09/05/21 08:00 09/05/21 08:00 09/05/21 08:00 Discharge Data Data Completed and Pending Labs on day of discharge: Labs from last 24 hours 09/05/21 09/05/21 09/05/21 05:14 05:14 05:14 WBC 10.2 RBC 4.14 Hgb 12.5 Hct 38.2 MCV 92.3 MCH 30.2 MCHC 32.7 RDW 14.8 H Plt Count 142 MPV 13.0 H Neut % (Auto) 61.7 Lymph % (Auto) 30.7 [place] % (Auto) 7.4 Eos % (Auto) 0.1 Baso % (Auto) 0.1 Lymph # (Auto) 3.14 [place] # (Auto) 0.76 Eos # (Auto) 0.01 Baso # (Auto) 0.01 Absolute Neutrophils 6.32 Sodium 138 Potassium 4.1 Chloride 104 Carbon Dioxide 21 L Anion Gap 13.0 BUN 43 H Creatinine 1.4 H GFR Calculation 37 Glucose 154 H Hemoglobin A1c 9.5 H Estim Average Glucose 226 Calcium 8.5 L C-Reactive Protein 4.40 H Preliminary micro results at discharge 08/31/21 21:46 Blood Culture - Preliminary Blood 08/31/21 21:40 Blood Culture - Preliminary Blood Discharge Plan Patient/Caregiver Discharge Instructions Activity: increase activity as tolerated Diet: Consistent Carbohydrate Prescriptions: Continued allopurinol 300 mg tablet 300 mg PO QDAY Qty: 90 1RF atorvastatin 80 mg tablet 80 mg PO QHS 0RF insulin lispro [Humalog KwikPen Insulin] 100 unit/mL Insulin Pen See Rx Instructions .ROUTE .COMPLEX 0RF Rx Instructions: sliding scale with meals Basaglar KwikPen U-100 Insulin 100 unit/mL (3 mL) Insulin Pen 10 unit SUBCUT BID 0RF diclofenac sodium 1 % gel 2 g topical QID 0RF torsemide 20 mg tablet 1.5 tab PO QDAY 0RF pregabalin 150 mg capsule See Rx Instructions .ROUTE .COMPLEX 0RF Rx Instructions: 1 tab orally 2- 3 X day Trulicity 3 mg/0.5 mL pen injector 0.5 ml subcut WEEKLY 0RF hydrocodone-acetaminophen 7.5-325 mg tablet 1 tab PO BIDP PRN (Reason: Pain) 0RF (DME) lancets [Accu-Chek Softclix Lancets] Misc topical 0RF (DME) blood-glucose meter [Accu-Chek Guide Glucose Meter] Misc MISCELLANEOUS TID 0RF (DME) Accu-Chek Guide test strips Strip MISCELLANEOUS 0RF Label Comments: [NO ORIGINAL SIG] docusate sodium [Stool Softener] 100 mg capsule 100 mg PO QDAY 0RF Follow Up Plan Follow up with: Marce Baca ARNP [Primary Care Provider] - Patient Disposition: Home Health Service Prognosis: Fair Overall status at discharge: patient is progressing back to baseline Discharge Orders: Discharge Order (Routine); Ordered 09/05/21 Ordered By: Moe Baca
== END 2021-09-05 15:15 | disposition home health service (06) | DRG 177 ==
LOC: ED 20:09 → MEDSUR 09-01 19:21
PROVIDERS: ADMIT Internal Medicine; ATTEND Internal Medicine

== ENCOUNTER 2022-02-22 12:00 | Inpatient (IN) ==
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
[2022-02-22 13:25] LABS: Basophils # (Auto) 0.05 K/mcL (0.00-0.30); Basophils % (Auto) 0.3 % (0.0-2.0); Eosinophils # (Auto) 0.17 K/mcL (0.00-0.70); Eosinophils % (Auto) 1.1 % (0.0-7.0); Hemoglobin 14.9 g/dL (11.2-15.7); Lymphocytes # (Auto) 3.26 K/mcL (1.50-4.80); Lymphocytes % (Auto) 20.4 % (15.5-49.0); Mean Cell Volume 91.1 fL (80.0-100.0); Mean Corpuscular HGB Conc 33.1 g/dL (31.0-36.0); Mean Platelet Volume 12.1 fL (7.4-10.4); Monocytes # (Auto) 0.94 K/mcL (0.10-0.90); Monocytes % (Auto) 5.9 % (1.0-12.0); Neutrophils % (Auto) 71.7 % (38.0-78.0); Platelet Count 231 K/mcL (140-440); RBC 4.94 M/mcL (3.59-5.38); Red Cell Distribution Width 15.1 % (11.5-14.5)
[2022-02-22 14:47] LABS: POC Calcium, Ionized 1.07 (1.16-1.32); POC Creatinine 3.6 (0.6-1.2); POC Potassium 2.9 (3.3-5.1)
--- NOTE | 2022-02-22 15:02 | XRay Report ---
CLINICAL INFORMATION: Elevated white blood cell count weakness COMPARISON: 02/17/2022 TECHNIQUE: PA and Lateral views FINDINGS: The heart size, mediastinum and pulmonary vessels are unremarkable. Minor bibasilar atelectasis noted. No definite infiltrates.. There are no effusions. Mild old compression fractures of the upper mid thoracic spine stable IMPRESSION: Minor bibasilar atelectasis. Interpreted and Authenticated by: Maksim Francis 02/22/22
[2022-02-22] MEDS ORDERED: cefTRIAXone 1 GM VIAL IV ONE (15:33)
[2022-02-22] MEDS ORDERED: POTASSIUM CHLORIDE 40 MEQ in DEXTROSE 5% IN WATER 500 ML IV ONE (15:33)
[2022-02-22] MEDS ORDERED: MAGNESIUM SULFATE 8.12 MEQ in DEXTROSE 5% IN WATER 50 ML IV ONE (15:33)
[2022-02-22] MEDS ORDERED: 0.9 % SODIUM CHLORIDE 500 ML IV ONE (15:33)
[2022-02-22] MEDS ORDERED: CALCIUM CHLORIDE 1,000 MG in DEXTROSE 5% IN WATER 50 ML IV ONE (15:33)
[2022-02-22] MEDS ORDERED: DEXTROSE 31 GM ORAL.SUSP PO PRN (17:51)
[2022-02-22] MEDS ORDERED: DEXTROSE 50% 50 ML VIAL IV PRN (17:51)
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
[2022-02-22 17:59] LABS: Appearance,Urine Clear (Clear); Bilirubin,Urine Negative (Negative); Color,Urine Yellow; Culture Indicated,Urine No; Glucose,Urine (UA) Negative (Negative); Ketones,Urine Negative (Negative); Leukocyte Esterase,Urine Small /uL (Negative); Nitrate,Urine Negative (Negative); PH,Urine 6.5 (5.0-9.0); Urine Blood Negative ery/mcL (Negative); Urine Hyaline Cast 4 /lph (0-2); Urine RBC 1 /hpf (0-3); Urine Squamous Epithelial Cell 6 /hpf (0-4); Urine Transitional Epi Cells < 1 /hpf (0-2); Urine WBC 14 /hpf (0-4); Urobilinogen,Urine Normal
[2022-02-22] MEDS ORDERED: CALCIUM CARBONATE 1,250 MG/5 ML ORAL.SUSP PO ONE (19:00)
[2022-02-22] MEDS ORDERED: ONDANSETRON 4 MG/2 ML VIAL IV PRN (19:00)
[2022-02-22] MEDS: INSULIN LISPRO 1 UNIT/0.01 ML UNIT SQ SCH (20:13)
[2022-02-22] MEDS: LACTATED RINGERS 1,000 ML IV SCH (20:14)
[2022-02-22] MEDS: 0.9 % SODIUM CHLORIDE 10 ML SYRINGE IV SCH ×2 (20:33)
[2022-02-22] MEDS ORDERED: CALCIUM CARBONATE 500 MG TAB.CHEW CHEWED ONE (21:25)
[2022-02-22] MEDS: SENNOSIDES 1 TABLET PO SCH (21:35)
[2022-02-22] MEDS: HEPARIN 5,000 UNIT/ML VIAL SQ SCH (21:35)
[2022-02-22] MEDS: DOCUSATE SODIUM 100 MG CAPSULE PO SCH (21:35)
[2022-02-22] MEDS ORDERED: CALCIUM CARBONATE 500 MG TAB.CHEW ONE (21:39)
[2022-02-23] MEDS: 0.9 % SODIUM CHLORIDE 10 ML SYRINGE IV SCH ×4 (05:33→23:17)
[2022-02-23 06:49] LABS: Basophils # (Auto) 0.06 K/mcL (0.00-0.30); Basophils % (Auto) 0.5 % (0.0-2.0); Eosinophils # (Auto) 0.32 K/mcL (0.00-0.70); Eosinophils % (Auto) 2.8 % (0.0-7.0); Hematocrit 40.4 % (34.1-44.9); Hemoglobin 13.2 g/dL (11.2-15.7); Lymphocytes # (Auto) 3.55 K/mcL (1.50-4.80); Lymphocytes % (Auto) 30.7 % (15.5-49.0); Mean Cell Volume 90.4 fL (80.0-100.0); Mean Corpuscular HGB Conc 32.7 g/dL (31.0-36.0); Mean Platelet Volume 12.8 fL (7.4-10.4); Monocytes # (Auto) 0.94 K/mcL (0.10-0.90); Monocytes % (Auto) 8.1 % (1.0-12.0); Neutrophils % (Auto) 57.5 % (38.0-78.0); Platelet Count 219 K/mcL (140-440); RBC 4.47 M/mcL (3.59-5.38); WBC 11.6 K/mcL (4.5-11.0)
[2022-02-23 07:10] LABS: Blood Urea Nitrogen 63 mg/dL (8-23); Calcium 10.3 mg/dL (8.6-10.4); Carbon Dioxide 26 mmol/L (22-30); Chloride 96 mmol/L (96-108); Glomerular Filtration Rate 20; Glucose 119 mg/dL (70-105)
[2022-02-23] MEDS: HEPARIN 5,000 UNIT/ML VIAL SQ SCH ×2 (07:51→21:48)
[2022-02-23] MEDS: DOCUSATE SODIUM 100 MG CAPSULE PO SCH ×2 (07:54→21:48)
[2022-02-23] MEDS: LACTATED RINGERS 1,000 ML IV SCH ×2 (09:10→22:30)
--- NOTE | 2022-02-23 10:03 | Internal Med Progress Note ---
SUBJECTIVE Subjective Patient information: Note initiated : 02/23/22 at 10:02 am Service Date, if different from initiated Date: [] Patient: Rosina Morris 76 y/o F admitted on 02/22/22 for kidney pain. Chief Complaint: [Tetany, MARLON] Principal diagnosis: Abnormal labs Interval history: The patient is feeling and looking much better. RN was present at the bedside to discuss plan of care. Constitutional Vitals: Vital Signs Temp Pulse Resp BP Pulse Ox O2 Del Method O2 Flow Rate 97.8 F 82 12 139/66 97 2 02/23/22 06:50 02/23/22 06:50 02/23/22 06:50 02/23/22 06:50 02/23/22 06:50 02/23/22 06:50 02/23/22 06:50 Period Temp Pulse Resp BP Sys/Pedersen Pulse Ox O2 Del Method O2 Flow Rate Last 24 Hr 96.8 F-99.5 F 65-83 12-18 105-163/55-102 83-97 Nasal Cannula-Room Air 2-2 Intake and Output 02/22/22 02/23/22 02/23/22 21:59 05:59 13:59 Intake Total 3915 430 4938 Balance 4935 225 8896 Weight 67.358 kg Intake & Output: Intake & Output 02/22/22 02/23/22 02/23/22 21:59 05:59 13:59 Intake Total 5078 174 7856 Balance 1870 377 5063 Weight 67.358 kg Intake: IV 785 347 970 Sodium Chloride 0.9% 500 ml @ 500 Wide Open IV BOLUS ONE Rx#: [id number] Calcium Chloride 1,000 mg In 22 38 Dextrose 5% in Water 50 ml @ 25 mls/hr IV ONCE ONE Rx#: [id number] Lactated Ringers 1,000 ml @ 75 970 mls/hr IV .[id number] [facility] Rx#: [id number] Magnesium Sulfate 8.12 Meq In 52 Dextrose 5% in Water 50 ml @ 52 mls/hr IV ONCE ONE Rx#: [id number] Potassium Chloride 40 Meq In 211 309 Dextrose 5% in Water 500 ml @ 130 mls/hr IV ONCE ONE Rx#: [id number] Oral 400 440 240 Other: Meal Breakfast Percent of Meal Consumed 100% Feeding Ability Independent Urine Appearance Clear Clear Urine Color Yellow Yellow Pale Urine Odor Normal Normal # Voids 1 1 Head Head exam: Present atraumatic and normal inspection Eye Eye exam: Present normal appearance ENT ENT exam: Present mucous membranes moist, normal exam and normal external ear exam Neck Neck exam: Present normal inspection Respiratory Respiratory exam: Present normal respiratory exam Cardiovascular Cardiovascular exam: Present normal rate and rhythm GI/Abdominal GI/Abdominal exam: Present normal bowel sounds Back Exam Back exam: Present normal inspection Neurological Exam Neurological exam: Present alert and oriented X3 Skin Skin exam: Present intact and warm OBJ DATA Labs CBC & Chem 7: 02/23/22 05:48 02/23/22 05:48 Labs: Abnormal Lab Results 02/23/22 02/23/22 02/22/22 05:48 05:48 16:10 WBC 11.6 H Hct RDW 15.0 H MPV 12.8 H Immature Gran % (Auto) [place] # (Auto) 0.94 H Immature Gran # Absolute Neutrophils POC Potassium Potassium 3.1 L POC Chloride POC Total CO2 POC BUN BUN 63 H Creatinine 2.3 H POC Creatinine Glucose 119 H POC Glucose POC WB Ioniz Calcium Urine Protein 30 mg/dl A Ur Leukocyte Esterase Small A Urine WBC 14 H Ur Squamous Epith Cells 6 H Hyaline Casts 4 H 02/22/22 02/22/22 14:43 12:56 WBC 16.0 H Hct 45.0 H RDW 15.1 H MPV 12.1 H Immature Gran % (Auto) 0.6 H [place] # (Auto) 0.94 H Immature Gran # 0.09 H Absolute Neutrophils 11.58 H POC Potassium 2.9 L* Potassium POC Chloride 93 L POC Total CO2 33.0 H POC BUN 62 H BUN Creatinine POC Creatinine 3.6 H Glucose POC Glucose 150 H POC WB Ioniz Calcium 1.07 L Urine Protein Ur Leukocyte Esterase Urine WBC Ur Squamous Epith Cells Hyaline Casts Meds: Medications Hydrocodone Bitart/Acetaminophen (Hydrocodone/Apap 7.5/325mg Tablet) 1 tab PO QIDP PRN; Protocol PRN Reason: Per Pain Protocol Dextrose (Dextrose 50% 50 Ml Vial) 0 ml IV UD PRN PRN Reason: Per Sliding Scale Diagnostic Test (Pha) (Accu-Chek 1 Each Strip) 1 each FS ACHS [facility] Last Admin: 02/23/22 07:52 Dose: 1 each Docusate Sodium (Docusate Sodium 100 Mg Capsule) 100 mg PO BID [facility] Last Admin: 02/23/22 07:54 Dose: 100 mg Glucose (Dextrose 31 Gm Oral.Susp) 15 gm PO PRN PRN PRN Reason: Hypoglycemia Heparin Sodium (Porcine) (Heparin 5,000 Unit/Ml Vial) 5,000 unit SQ Q12 [facility] Last Admin: 02/23/22 07:51 Dose: 5,000 unit Lactated Ringer's (Lactated Ringers) 1,000 mls @ 75 mls/hr IV .[id number] [facility] Last Admin: 02/23/22 09:10 Dose: 75 mls/hr Insulin Human Lispro (Insulin Lispro 1 Unit/0.01 Ml Unit) 0 unit SQ ACHS [facility]; Protocol Last Admin: 02/22/22 20:13 Dose: 8 units Ondansetron HCl (Ondansetron 4 Mg/2 Ml Vial) 4 mg IV Q6HP PRN PRN Reason: Nausea And Vomiting Senna (Sennosides 1 Tablet) 2 tab PO HS [facility] Last Admin: 02/22/22 21:35 Dose: 2 tab Sodium Chloride (0.9 % Sodium Chloride 10 Ml Syringe) 10 ml IV Q8 [facility] Last Admin: 02/23/22 05:33 Dose: Not Given Sodium Chloride (0.9 % Sodium Chloride 10 Ml Syringe) 10 ml IV Q8 [facility] Last Admin: 02/23/22 05:33 Dose: Not Given A/P Assessment and plan (1) MARLON (acute kidney injury): Status: Acute (2) Tetany: Status: Acute (3) Hypocalcemia: Status: Acute (4) Type 2 diabetes mellitus with peripheral neuropathy: Status: Chronic (5) Hypertension: Status: Chronic (6) Hyperlipidemia: Status: Chronic (7) Bladder cancer: Status: Acute Narrative A/P Narrative: The patient likely developed prerenal MARLON in the setting of loop diuretics as well as recent addition of metolazone. We will hold these medications and gently hydrate her with LR 75 cc an hour. We will monitor her BMP. We will renally dose medications and hold nephrotoxic agents. Of note, the patient is hypocalcemic with tetany and she is receiving IV replacement and p.o. replacement. We will monitor her clinically as she is developed tetany. Medication reconciliation is pending. 02/23: The patient's tetany has significantly improved with the correction of her severe hypocalcemia. Repeat ionized calcium is pending. Her creatinine has improved to 2.3 today with IV fluids. We will continue to hold her home diuretics. She will have a PT assessment today. She will likely be discharged home tomorrow. Time Spent With Patient Time: Total time spent is greater than 50% in coordination of care (as documented) at patient's floor/unit and/or counseling patient: Total time spent with greater than 50% in coordination of care (as documented) at patient's floor/unit and/or counseling patient:: 25 - 35 minutes QUALITY VTE Deep Vein Thrombosis/Pulmonary Embolism Present on Admission: No
[2022-02-23] MEDS: INSULIN LISPRO 1 UNIT/0.01 ML UNIT SQ SCH ×4 (11:35→21:48)
[2022-02-23] MEDS: HYDROCODONE/APAP 7.5/325MG TABLET PO PRN ×2 (16:47→21:48)
[2022-02-23] MEDS: SENNOSIDES 1 TABLET PO SCH (21:48)
[2022-02-24] MEDS: 0.9 % SODIUM CHLORIDE 10 ML SYRINGE IV SCH ×2 (05:15→13:27)
[2022-02-24] MEDS: INSULIN LISPRO 1 UNIT/0.01 ML UNIT SQ SCH ×2 (07:51→11:04)
[2022-02-24] MEDS: DOCUSATE SODIUM 100 MG CAPSULE PO SCH (08:44)
[2022-02-24] MEDS: HEPARIN 5,000 UNIT/ML VIAL SQ SCH (08:44)
[2022-02-24] MEDS: HYDROCODONE/APAP 7.5/325MG TABLET PO PRN (08:44)
[2022-02-24 09:00] LABS: Blood Urea Nitrogen 49 mg/dL (8-23); Calcium 9.4 mg/dL (8.6-10.4); Carbon Dioxide 26 mmol/L (22-30); Chloride 97 mmol/L (96-108); Glomerular Filtration Rate 24; Glucose 140 mg/dL (70-105)
[2022-02-24] MEDS ORDERED: POTASSIUM CHLORIDE 20 MEQ TABLET PO ONE (10:23)
[2022-02-24] MEDS: LACTATED RINGERS 1,000 ML IV SCH (11:20)
--- NOTE | 2022-02-24 12:03 | Discharge Summary ---
Discharge Provider Provider IMPORTANT FOLLOW-UP INFORMATION FOR PCP: 1. F/u BMP 2. F/u with cardiology on diuretic dosing Patient information: Note initiated : 02/24/22 at 11:59 am Service Date, if different from initiated Date: [] Patient: Rosina Morris 76 y/o F admitted on 02/22/22 for kidney pain. Chief Complaint: [] Date of admission: 02/22/22 18:55 Discharge date: 02/24/22 Primary care physician: SUZY Cameron Consults: 02/22/22 Consult to Physician [CONS] Stat Comment: Consulting Provider: Bailey De La Cruz Reason For Exam: Physician to Consult Attending physician on discharge: Bailey De La Cruz COURSE Hospital Course Hospital course: A/P Narrative: The patient likely developed prerenal MARLON in the setting of loop diuretics as well as recent addition of metolazone. We will hold these medications and gently hydrate her with LR 75 cc an hour. We will monitor her BMP. We will renally dose medications and hold nephrotoxic agents. Of note, the patient is hypocalcemic with tetany and she is receiving IV replacement and p.o. replacement. We will monitor her clinically as she is developed tetany. Medication reconciliation is pending. 02/23: The patient's tetany has significantly improved with the correction of her severe hypocalcemia. Repeat ionized calcium is pending. Her creatinine has improved to 2.3 today with IV fluids. We will continue to hold her home diuretics. She will have a PT assessment today. She will likely be discharged home tomorrow. 02/24: The patient's hypocalcemia and acute kidney injury were both diuretic induced. Likely with the recent addition of metolazone after she was released from the ER last week. The patient's creatinine today is 2.0. Her ionized calcium is up to 1.18. She is doing much better. She did well with physical therapy. She will be discharged home today. Her metolazone and torsemide have been discontinued for the time being. She will need to follow-up with cardio logy and with her primary care physician next week. The patient is understanding of the discharge plan and is agreeable. Discharge diagnosis: MARLON, tetany, hypocalcemia Time Spent with Patient Time attestation: Total time spent providing and/or coordinating discharge services: Time spent: Greater than 30 minutes EXAM Constitutional Vitals: Temp Pulse Resp BP Pulse Ox O2 Del Method O2 Flow Rate 97.5 F 76 14 145/70 95 2 02/24/22 11:44 02/24/22 11:44 02/24/22 11:44 02/24/22 11:44 02/24/22 11:44 02/24/22 11:44 02/23/22 11:24 General appearance: average body habitus Head Head exam: Present atraumatic, normal inspection and normocephalic Eye Eye exam: Present EOMI, normal appearance and PERRL; Absent conjunctival injection ENT ENT exam: Present normal exam; Absent mucous membranes dry Neck Neck exam: Present full ROM; Absent lymphadenopathy Respiratory Respiratory exam: Present normal respiratory exam and CTAB; Absent decreased breath sounds, respiratory distress or wheezes Cardiovascular Cardiovascular exam: Present normal rate and rhythm and RRR; Absent JVD GI/Abdominal GI/Abdominal exam: Present normal bowel sounds and soft; Absent diminished bowel sounds, distended, guarding, mass, rebound or tenderness Neurological Exam Neurological exam: Present alert, CN II-XII intact and oriented X3 Psychiatric Psychiatric exam: Present normal affect and normal mood Skin Skin exam: Present intact and warm; Absent erythema, pallor, petechiae or rash Discharge Data Data Completed and Pending Labs on day of discharge: Labs from last 24 hours 02/24/22 07:51 Sodium 136 Potassium 3.2 L Chloride 97 Carbon Dioxide 26 Anion Gap 13.0 BUN 49 H Creatinine 2.0 H GFR Calculation 24 Glucose 140 H Calcium 9.4 Discharge Plan Patient/Caregiver Discharge Instructions Activity: increase activity as tolerated Diet: Consistent Carbohydrate Instructions: Acute Kidney Injury (DC) Prescriptions: Continued atorvastatin 80 mg tablet 80 mg PO QHS insulin lispro [Humalog KwikPen Insulin] 100 unit/mL Insulin Pen See Rx Instructions .ROUTE .COMPLEX Rx Instructions: sliding scale with meals insulin glargine [Basaglar KwikPen U-100 Insulin] 100 unit/mL (3 mL) Insulin Pen 10 unit SUBCUT DAILY pregabalin 150 mg capsule 150 mg PO BID Rx Instructions: 1 tab orally 2- 3 X day Trulicity 3 mg/0.5 mL pen injector 0.5 ml subcut WEEKLY hydrocodone-acetaminophen 7.5-325 mg tablet 1 tab PO QIDP PRN (Reason: Pain) (DME) lancets [Accu-Chek Softclix Lancets] Misc topical (DME) blood-glucose meter [Accu-Chek Guide Glucose Meter] Misc MISCELLANEOUS TID (DME) Accu-Chek Guide test strips Strip MISCELLANEOUS Label Comments: [NO ORIGINAL SIG] allopurinol 300 mg tablet 50 mg PO QDAY docusate sodium [Stool Softener] 100 mg capsule 100 mg PO QDAY glipizide 10 mg tablet extended release 24hr 10 mg PO BID Discontinued torsemide 20 mg tablet 2 tab PO QDAY metolazone 2.5 mg tablet 2.5 mg PO QDAY Qty: 4 0RF Follow Up Plan Follow up with: Marce Baca ARNP [Primary Care Provider] - Patient Disposition: Home, Self-Care Rehab Potential: Good I certify that the patient requires SNF services: No Overall status at discharge: patient is progressing back to baseline Discharge Orders: Discharge Order (Routine); Ordered 02/24/22 Ordered By: Bailey DISLA VTE Deep Vein Thrombosis/Pulmonary Embolism Present on Admission: No
== END 2022-02-24 15:10 | disposition home or self-care (01) | DRG 683 ==
LOC: ED 12:00 → MEDSUR 18:55
PROVIDERS: ADMIT Student in an Organized Health Care Education/Training Program; ATTEND Student in an Organized Health Care Education/Training Program

== ENCOUNTER 2022-03-09 20:37 | Inpatient (IN) ==
[2022-03-09] MEDS ORDERED: HYDROcodone/APAP 5/325MG TABLET PO ONE (23:11)
[2022-03-10] MEDS ORDERED: VANCOMYCIN 1,000 MG in 0.9 % SODIUM CHLORIDE 250 ML IV ONE (00:05)
[2022-03-10] MEDS ORDERED: PIPERACILLIN SODIUM/TAZOBACTAM 4.5 GM in DEXTROSE 5% IN WATER 50 ML IV ONE (00:05)
[2022-03-10 00:11] LABS: Basophils # (Auto) 0.04 K/mcL (0.00-0.30); Basophils % (Auto) 0.2 % (0.0-2.0); Eosinophils # (Auto) 0.04 K/mcL (0.00-0.70); Eosinophils % (Auto) 0.2 % (0.0-7.0); Hematocrit 33.7 % (34.1-44.9); Lymphocytes # (Auto) 2.72 K/mcL (1.50-4.80); Lymphocytes % (Auto) 15.3 % (15.5-49.0); Mean Cell Volume 90.8 fL (80.0-100.0); Mean Corpuscular HGB Conc 32.6 g/dL (31.0-36.0); Monocytes # (Auto) 1.07 K/mcL (0.10-0.90); Neutrophils % (Auto) 77.7 % (38.0-78.0); Platelet Count 205 K/mcL (140-440); RBC 3.71 M/mcL (3.59-5.38); Red Cell Distribution Width 15.4 % (11.5-14.5); WBC 17.7 K/mcL (4.5-11.0)
[2022-03-10] MEDS ORDERED: ACETAMINOPHEN 325 MG TABLET PO ONE (00:16)
[2022-03-10 00:30] LABS: Erythrocyte Sedimentation Rate 75 mm/hr (0-30)
[2022-03-10 00:34] LABS: Blood Urea Nitrogen 53 mg/dL (8-23); Calcium 9.3 mg/dL (8.6-10.4); Carbon Dioxide 31 mmol/L (22-30); Chloride 96 mmol/L (96-108); Glomerular Filtration Rate 19; Glucose 131 mg/dL (70-105)
--- NOTE | 2022-03-10 05:22 | Cat Scan Report ---
INDICATION: DM ulcer infection to R foot, fevers TECHNIQUE: Axial images through the right foot. Sagittal and coronal reformatted images COMPARISON: Plain film examination dated 03/09/2022 FINDINGS: Patient gives a history of nonhealing wound involving the "ball of the right foot".. No soft tissue wound is identified. There is no soft tissue gas. No foreign body. There may be a fractured sesamoid bone at the first metatarsal head there are erosions of the first metatarsal head and proximal phalanx. Gout is possible. Appearance is not typical of osteomyelitis. There is a fracture of the right fourth proximal phalanx with some bony callus formation. There is no solid bony union. No other right foot fracture. Note cortical destruction. No evidence for osteomyelitis. Patient has undergone previous open reduction and internal fixation of a bimalleolar fracture. IMPRESSION: 1. Possible gout involving the right first metatarsal phalangeal joint region 2. Possible fractured sesamoid at the right first metatarsal phalangeal joint 3. Healing fracture of the right fourth proximal phalanx 4. No soft tissue wound identified. No definite evidence for osteomyelitis Interpreted and Authenticated by: Maksim Greco 03/10/22
--- NOTE | 2022-03-10 05:24 | XRay Report ---
INDICATION: diabetic ulcer to sole. near 1-2 mtp TECHNIQUE: AP, oblique, lateral right foot COMPARISON: None. FINDINGS: Patient apparently has a wound along the plantar surface of the first and second metatarsal phalangeal joints. No cortical destruction. No evidence for osteomyelitis. Is an oblique, extra-articular fracture of the right fourth proximal phalanx. Patient has undergone previous open reduction and internal fixation of bimalleolar fracture There is no soft tissue gas. No detectable foreign body IMPRESSION: 1. No plain film evidence for osteomyelitis 2. Extra-articular nondisplaced fracture of the right fourth proximal phalanx Interpreted and Authenticated by: Maksim Greco 03/10/22
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
[2022-03-10] MEDS ORDERED: 0.9 % SODIUM CHLORIDE 1,000 ML IV ONE (06:18)
[2022-03-10 09:18] LABS: Appearance,Urine Clear (Clear); Bilirubin,Urine Negative (Negative); Color,Urine Yellow; Culture Indicated,Urine No; Glucose,Urine (UA) Negative (Negative); Ketones,Urine Negative (Negative); Leukocyte Esterase,Urine Trace /uL (Negative); Nitrate,Urine Negative (Negative); PH,Urine 5.5 (5.0-9.0); Urine Blood Negative ery/mcL (Negative); Urine RBC 1 /hpf (0-3); Urine Squamous Epithelial Cell 3 /hpf (0-4); Urine WBC 7 /hpf (0-4); Urobilinogen,Urine Normal
[2022-03-10] MEDS ORDERED: ONDANSETRON 4 MG/2 ML VIAL IV PRN (12:42)
[2022-03-10] MEDS ORDERED: VANCOMYCIN PER PHARMACY IV SCH ×2 (12:42→19:30)
[2022-03-10] MEDS ORDERED: morphine 4 MG/ML VIAL IV PRN (12:42)
[2022-03-10] MEDS ORDERED: DEXTROSE 50% 50 ML VIAL IV PRN (12:42)
[2022-03-10] MEDS ORDERED: DEXTROSE 31 GM ORAL.SUSP PO PRN (12:42)
[2022-03-10] MEDS: INSULIN LISPRO 1 UNIT/0.01 ML UNIT SQ SCH ×3 (12:47→20:57)
[2022-03-10] MEDS ORDERED: ENOXAPARIN 30 MG/0.3 ML SYRINGE SQ SCH (13:00)
[2022-03-10] MEDS: DOCUSATE SODIUM 100 MG CAPSULE PO SCH ×2 (13:16→21:12)
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
[2022-03-10] MEDS: CEFEPIME 2 GM VIAL IV SCH (14:01)
[2022-03-10] MEDS: 0.9 % SODIUM CHLORIDE 10 ML SYRINGE IV SCH ×2 (14:02→21:12)
[2022-03-10] MEDS: oxyCODONE HCL 5 MG TABLET PO PRN ×2 (14:08→19:51)
[2022-03-10 18:51] LABS: Vancomycin,Random 10.7 ug/mL
[2022-03-10] MEDS ORDERED: VANCOMYCIN 1,000 MG in 0.9 % SODIUM CHLORIDE 250 ML IV SCH (21:00)
[2022-03-10] MEDS: HEPARIN 5,000 UNIT/ML VIAL SQ SCH (21:11)
[2022-03-10] MEDS: ACETAMINOPHEN 325 MG TABLET PO PRN (21:12)
[2022-03-10] MEDS: PREGABALIN 150 MG CAPSULE PO SCH (21:12)
[2022-03-10] MEDS: ATORVASTATIN 40 MG TABLET PO SCH (21:12)
[2022-03-10] MEDS: SENNOSIDES 1 TABLET PO SCH (21:12)
[2022-03-11] MEDS: 0.9 % SODIUM CHLORIDE 10 ML SYRINGE IV SCH ×3 (05:52→20:25)
[2022-03-11 06:36] LABS: Basophils # (Auto) 0.05 K/mcL (0.00-0.30); Basophils % (Auto) 0.4 % (0.0-2.0); Eosinophils # (Auto) 0.59 K/mcL (0.00-0.70); Eosinophils % (Auto) 4.9 % (0.0-7.0); Hematocrit 31.8 % (34.1-44.9); Hemoglobin 10.2 g/dL (11.2-15.7); Lymphocytes # (Auto) 3.48 K/mcL (1.50-4.80); Lymphocytes % (Auto) 28.7 % (15.5-49.0); Mean Cell Volume 91.6 fL (80.0-100.0); Mean Corpuscular HGB Conc 32.1 g/dL (31.0-36.0); Monocytes # (Auto) 0.74 K/mcL (0.10-0.90); Monocytes % (Auto) 6.1 % (1.0-12.0); Neutrophils % (Auto) 59.4 % (38.0-78.0); Platelet Count 226 K/mcL (140-440); RBC 3.47 M/mcL (3.59-5.38); Red Cell Distribution Width 15.4 % (11.5-14.5); WBC 12.1 K/mcL (4.5-11.0)
[2022-03-11 06:50] LABS: Blood Urea Nitrogen 51 mg/dL (8-23); Calcium 8.5 mg/dL (8.6-10.4); Carbon Dioxide 27 mmol/L (22-30); Chloride 103 mmol/L (96-108); Glomerular Filtration Rate 24; Glucose 106 mg/dL (70-105)
[2022-03-11] MEDS: INSULIN LISPRO 1 UNIT/0.01 ML UNIT SQ SCH ×4 (09:38→20:25)
[2022-03-11] MEDS: HEPARIN 5,000 UNIT/ML VIAL SQ SCH ×2 (10:10→20:24)
[2022-03-11] MEDS: DOCUSATE SODIUM 100 MG CAPSULE PO SCH ×2 (10:10→20:24)
[2022-03-11] MEDS: PREGABALIN 150 MG CAPSULE PO SCH ×2 (10:10→20:24)
[2022-03-11] MEDS: HYDROCODONE/APAP 7.5/325MG TABLET PO PRN (10:20)
[2022-03-11] MEDS: CEFEPIME 2 GM VIAL IV SCH (10:21)
--- NOTE | 2022-03-11 11:12 | Magnetic Resonance Report ---
INDICATION: Infected diabetic ulcer, ?osteo TECHNIQUE: Sagittal, axial, coronal images of the right foot COMPARISON: Plain film examination dated 03/09/2022 FINDINGS: Diffuse bone marrow edema within the right fourth proximal phalanx. This is consistent with fracture demonstrated on previous examination. Patient apparently has a nonhealing diabetic foot ulcer along the plantar surface at the right first metatarsal phalangeal joint. Right first metatarsal and proximal phalanx are negative. No bone marrow edema. No cortical destruction. No MRI evidence for osteomyelitis. Nonhealing ulcer is not well visualized. No detectable gas bubbles. IMPRESSION: 1. Bone marrow edema in the fourth proximal phalanx consistent with fracture 2. No MR evidence for osteomyelitis. Interpreted and Authenticated by: Maksim Greco 03/11/22
--- NOTE | 2022-03-11 12:22 | Internal Med Progress Note ---
SUBJECTIVE Subjective Patient information: Note initiated : 03/11/22 at 12:19 pm Service Date, if different from initiated Date: [] Patient: Rosina Morris 76 y/o F admitted on 03/10/22 for R ankle pain. Chief Complaint: [Infected diabetic foot ulcer, right] Principal diagnosis: Infected diabetic foot ulcer, right Interval history: The patient was resting comfortably in bed. She was wondering about wound care when they would be here. She had no other active complaints or concerns. We discussed plan of care and disposition. Constitutional Vitals: Vital Signs Temp Pulse Resp BP Pulse Ox O2 Del Method O2 Flow Rate 97.9 F 81 14 121/76 94 2 03/11/22 12:12 03/11/22 12:12 03/11/22 12:12 03/11/22 12:12 03/11/22 12:12 03/11/22 12:12 03/10/22 02:50 Period Temp Pulse Resp BP Sys/Pedersen Pulse Ox O2 Del Method O2 Flow Rate Last 24 Hr 97.1 F-98 F 77-94 14-20 121-134/59-76 91-98 Room Air-Room Air Intake and Output 03/10/22 03/11/22 03/11/22 21:59 05:59 13:59 Intake Total 480 470 418 Output Total 750 600 Balance -270 -130 418 Weight 70.08 kg Intake & Output: Intake & Output 03/10/22 03/11/22 03/11/22 21:59 05:59 13:59 Intake Total 480 470 418 Output Total 750 600 Balance -270 -130 418 Weight 70.08 kg Intake: IV 250 Vancomycin 1,000 mg In Sodium 250 Chloride 0.9% 250 ml @ 250 mls/ hr IV 2100 [facility] Rx#:[id number] Oral 480 220 418 Output: Void Amount 750 600 Other: Meal Dinner Percent of Meal Consumed 100% Urine Appearance Clear Clear Urine Color Yellow Yellow Urine Odor Normal Normal # Voids 1 Head Head exam: Present atraumatic and normal inspection Eye Eye exam: Present normal appearance ENT ENT exam: Present mucous membranes moist, normal exam and normal external ear exam Neck Neck exam: Present normal inspection Respiratory Respiratory exam: Present normal respiratory exam Cardiovascular Cardiovascular exam: Present normal rate and rhythm GI/Abdominal GI/Abdominal exam: Present normal bowel sounds Back Exam Back exam: Present normal inspection Neurological Exam Neurological exam: Present alert and oriented X3 Skin Skin exam: Present intact and warm OBJ DATA Labs CBC & Chem 7: 03/11/22 05:14 03/11/22 05:14 Labs: Abnormal Lab Results 03/11/22 03/11/22 03/10/22 05:14 05:14 08:05 WBC 12.1 H RBC 3.47 L Hgb 10.2 L Hct 31.8 L RDW 15.4 H MPV 13.0 H Immature Gran % (Auto) Lymph % (Auto) [place] # (Auto) Immature Gran # 0.06 H Absolute Neutrophils ESR Carbon Dioxide BUN 51 H Creatinine 2.0 H Glucose 106 H Uric Acid Calcium 8.5 L C-Reactive Protein 17.60 H Urine Protein 100 mg/dl A Ur Leukocyte Esterase Trace A Urine WBC 7 H 03/09/22 03/09/22 03/09/22 23:24 23:24 23:24 WBC 17.7 H RBC Hgb 11.0 L Hct 33.7 L RDW 15.4 H MPV 13.0 H Immature Gran % (Auto) 0.6 H Lymph % (Auto) 15.3 L [place] # (Auto) 1.07 H Immature Gran # 0.10 H Absolute Neutrophils 13.76 H ESR 75 H Carbon Dioxide 31 H BUN 53 H Creatinine 2.4 H Glucose 131 H Uric Acid 11.5 H Calcium C-Reactive Protein 33.70 H Urine Protein Ur Leukocyte Esterase Urine WBC Meds: Medications Acetaminophen (Acetaminophen 325 Mg Tablet) 650 mg PO Q6HP PRN; Protocol PRN Reason: Per Pain Protocol/Fever > 101 Last Admin: 03/10/22 21:12 Dose: 650 mg Hydrocodone Bitart/Acetaminophen (Hydrocodone/Apap 7.5/325mg Tablet) 1 tab PO QIDP PRN PRN Reason: Pain Last Admin: 03/11/22 10:20 Dose: 1 tab Atorvastatin Calcium (Atorvastatin 40 Mg Tablet) 80 mg PO HS [facility] Last Admin: 03/10/22 21:12 Dose: 80 mg Cefepime HCl (Cefepime 2 Gm Vial) 2 gm IV Q24H [facility]; Protocol Last Admin: 03/11/22 10:21 Dose: 2 gm Dextrose (Dextrose 50% 50 Ml Vial) 0 ml IV UD PRN PRN Reason: Per Sliding Scale Diagnostic Test (Pha) (Accu-Chek 1 Each Strip) 1 each FS ACHS [facility] Last Admin: 03/11/22 11:57 Dose: 1 each Docusate Sodium (Docusate Sodium 100 Mg Capsule) 100 mg PO BID [facility] Last Admin: 03/11/22 10:10 Dose: 100 mg Glucose (Dextrose 31 Gm Oral.Susp) 15 gm PO PRN PRN PRN Reason: Hypoglycemia Heparin Sodium (Porcine) (Heparin 5,000 Unit/Ml Vial) 5,000 unit SQ Q12 [facility] Last Admin: 03/11/22 10:10 Dose: 5,000 unit Insulin Human Lispro (Insulin Lispro 1 Unit/0.01 Ml Unit) 0 unit SQ [facility]; Protocol Last Admin: 03/11/22 12:02 Dose: 6 unit Morphine Sulfate (Morphine 4 Mg/Ml Vial) 4 mg IV Q4HP PRN; Protocol PRN Reason: Per Pain Protocol Ondansetron HCl (Ondansetron 4 Mg/2 Ml Vial) 4 mg IV Q6HP PRN PRN Reason: Nausea And Vomiting Oxycodone HCl (Oxycodone Hcl 5 Mg Tablet) 5 mg PO Q4HP PRN; Protocol PRN Reason: Per Pain Protocol Last Admin: 03/10/22 19:51 Dose: 5 mg Pregabalin (Pregabalin 150 Mg Capsule) 150 mg PO BID [facility] Last Admin: 03/11/22 10:10 Dose: 150 mg Senna (Sennosides 1 Tablet) 2 tab PO HS [facility] Last Admin: 03/10/22 21:12 Dose: 2 tab Sodium Chloride (0.9 % Sodium Chloride 10 Ml Syringe) 10 ml IV Q8 [facility] Last Admin: 03/11/22 05:52 Dose: 10 ml Vancomycin HCl (Vancomycin Per Pharmacy) 1 order IV UD [facility]; Protocol A/P Narrative A/P Narrative: The is a longstanding poorly controlled diabetic and was found to have a diabetic foot ulcer that appears to be infected resulting in purulent cellulitis. We will obtain an MRI to see if there is any underlying osteomyelitis. Dr. Dasilva has been consulted to see if any debridement is necessary. We will continue vancomycin and cefepime. The patient's home oral ID glycemic have been held and we will continue insulin sliding scale. 03/11: The patient underwent her MRI today which was negative for osteomyelitis and this is reassuring. We will continue antibiotic therapy with vancomycin and cefepime. She will be seen by wound care likely on Sunday. They will decide if debridement is required. Time Spent With Patient Time: Total time spent is greater than 50% in coordination of care (as documented) at patient's floor/unit and/or counseling patient: Total time spent with greater than 50% in coordination of care (as documented) at patient's floor/unit and/or counseling patient:: 25 - 35 minutes QUALITY VTE Deep Vein Thrombosis/Pulmonary Embolism Present on Admission: No
[2022-03-11 14:00] LABS: Vancomycin,Random 17.3 ug/mL
[2022-03-11] MEDS: oxyCODONE HCL 5 MG TABLET PO PRN (15:35)
[2022-03-11] MEDS ORDERED: VANCOMYCIN 1,000 MG in 0.9 % SODIUM CHLORIDE 250 ML IV SCH (20:00)
[2022-03-11] MEDS: SENNOSIDES 1 TABLET PO SCH (20:25)
[2022-03-11] MEDS: ATORVASTATIN 40 MG TABLET PO SCH (20:25)
[2022-03-11] MEDS: IPRATROPIUM/ALBUTEROL 3 ML AMPUL.NEB NEB SCH (21:57)
[2022-03-11] MEDS ORDERED: IPRATROPIUM/ALBUTEROL 3 ML AMPUL.NEB NEB ONE ×2 (22:06→22:53)
[2022-03-12] MEDS: ACETAMINOPHEN 325 MG TABLET PO PRN ×2 (01:44→08:49)
[2022-03-12] MEDS: 0.9 % SODIUM CHLORIDE 10 ML SYRINGE IV SCH ×3 (04:54→20:37)
--- NOTE | 2022-03-12 05:38 | XRay Report ---
INDICATION: SOB TECHNIQUE: AP portable semiupright chest x-ray COMPARISON: None FINDINGS: Lungs:Diffuse bilateral pulmonary parenchymal infiltrates. There are septal lines. There is peribronchial thickening. Appearance is consistent with interstitial pulmonary edema. Interstitial pneumonia is possible. Clinical correlation and follow-up radiographs are recommended. There is no focal pulmonary parenchymal consolidation Heart, vascular:There is cardiomegaly. Vascularity is prominent. Appearance consistent with congestive heart failure Mediastinum, javed:No mediastinal widening. No hilar mass Pleura:No definite pleural effusion Skeletal:Negative. IMPRESSION: 1. Diffuse interstitial infiltrates consistent with interstitial pulmonary edema 2. No focal parenchymal infiltrate. Interpreted and Authenticated by: Maksim Greco 03/12/22
[2022-03-12] MEDS: IPRATROPIUM/ALBUTEROL 3 ML AMPUL.NEB NEB SCH ×4 (07:34→18:20)
[2022-03-12] MEDS: INSULIN LISPRO 1 UNIT/0.01 ML UNIT SQ SCH ×4 (07:58→20:51)
[2022-03-12] MEDS: FUROSEMIDE 40 MG/4 ML VIAL IV SCH ×2 (08:48→15:37)
[2022-03-12] MEDS: HEPARIN 5,000 UNIT/ML VIAL SQ SCH ×2 (08:48→20:52)
[2022-03-12] MEDS: DOCUSATE SODIUM 100 MG CAPSULE PO SCH ×2 (08:50→20:35)
[2022-03-12] MEDS: CEFEPIME 2 GM VIAL IV SCH (08:50)
[2022-03-12] MEDS: PREGABALIN 150 MG CAPSULE PO SCH ×2 (08:50→20:35)
[2022-03-12 09:09] LABS: Basophils # (Auto) 0.05 K/mcL (0.00-0.30); Basophils % (Auto) 0.4 % (0.0-2.0); Eosinophils # (Auto) 0.15 K/mcL (0.00-0.70); Eosinophils % (Auto) 1.2 % (0.0-7.0); Hematocrit 32.4 % (34.1-44.9); Hemoglobin 10.2 g/dL (11.2-15.7); Lymphocytes # (Auto) 3.85 K/mcL (1.50-4.80); Lymphocytes % (Auto) 30.5 % (15.5-49.0); Mean Cell Volume 94.2 fL (80.0-100.0); Mean Corpuscular HGB Conc 31.5 g/dL (31.0-36.0); Mean Platelet Volume 12.8 fL (7.4-10.4); Monocytes # (Auto) 0.66 K/mcL (0.10-0.90); Monocytes % (Auto) 5.2 % (1.0-12.0); Neutrophils % (Auto) 62.1 % (38.0-78.0); Platelet Count 269 K/mcL (140-440); RBC 3.44 M/mcL (3.59-5.38); Red Cell Distribution Width 15.6 % (11.5-14.5); WBC 12.6 K/mcL (4.5-11.0)
[2022-03-12 09:25] LABS: Blood Urea Nitrogen 47 mg/dL (8-23); Calcium 9.1 mg/dL (8.6-10.4); Carbon Dioxide 27 mmol/L (22-30); Chloride 103 mmol/L (96-108); Glomerular Filtration Rate 27; Glucose 149 mg/dL (70-105)
--- NOTE | 2022-03-12 09:53 | Internal Med Progress Note ---
SUBJECTIVE Subjective Patient information: Note initiated : 03/12/22 at 9:51 am Service Date, if different from initiated Date: [] Patient: Rosina Morris 76 y/o F admitted on 03/10/22 for R ankle pain. Chief Complaint: [] Principal diagnosis: Infected diabetic foot ulcer, right Interval history: Yesterday evening, the patient was hypoxemic with an O2 sat in the 80s. We checked a chest x-ray and D-dimer. She was placed on 3 L of supplemental O2. This morning she was resting comfortably in her chair. We had a long goals of care discussion. RN was present at the bedside to discuss plan of care. Constitutional Vitals: Vital Signs Temp Pulse Resp BP Pulse Ox O2 Del Method O2 Flow Rate 97.1 F 79 20 142/83 97 2 03/12/22 08:00 03/12/22 08:00 03/12/22 08:00 03/12/22 08:00 03/12/22 08:00 03/12/22 08:00 03/12/22 08:00 Period Temp Pulse Resp BP Sys/Pedersen Pulse Ox O2 Del Method O2 Flow Rate Last 24 Hr 97.1 F-99.8 F 71-116 14-24 121-185/64-138 90-97 Nasal Cannula- Room Air 2-3 Intake and Output 03/11/22 03/12/22 03/12/22 21:59 05:59 13:59 Intake Total 250 480 Output Total 250 675 250 Balance 0 -195 -250 Weight 71.35 kg Intake & Output: Intake & Output 03/11/22 03/12/22 03/12/22 21:59 05:59 13:59 Intake Total 250 480 Output Total 250 675 250 Balance 0 -195 -250 Weight 71.35 kg Intake: IV 250 Vancomycin 1,000 mg In Sodium 250 Chloride 0.9% 250 ml @ 250 mls/ hr IV 2000 [facility] Rx#:[id number] Oral 480 Output: Void Amount 250 675 250 Other: Meal Breakfast Percent of Meal Consumed 100% Feeding Ability Independent General appearance: average body habitus Head Head exam: Present atraumatic and normal inspection Eye Eye exam: Present normal appearance ENT ENT exam: Present mucous membranes moist, normal exam and normal external ear exam Neck Neck exam: Present normal inspection Respiratory Respiratory exam: Present normal respiratory exam, prolonged expiratory phase and rales; Absent respiratory distress Cardiovascular Cardiovascular exam: Present normal rate and rhythm GI/Abdominal GI/Abdominal exam: Present normal bowel sounds Back Exam Back exam: Present normal inspection Neurological Exam Neurological exam: Present alert and oriented X3 Skin Skin exam: Present intact and warm OBJ DATA Labs CBC & Chem 7: 03/12/22 08:16 03/12/22 08:16 Labs: Abnormal Lab Results 03/12/22 03/12/22 03/11/22 08:16 08:16 22:08 WBC 12.6 H RBC 3.44 L Hgb 10.2 L Hct 32.4 L RDW 15.6 H MPV 12.8 H Immature Gran % (Auto) 0.6 H Lymph % (Auto) [place] # (Auto) Immature Gran # 0.08 H Absolute Neutrophils ESR D-Dimer 2.39 H Carbon Dioxide BUN 47 H Creatinine 1.8 H Glucose 149 H Uric Acid Calcium C-Reactive Protein Urine Protein Ur Leukocyte Esterase Urine WBC 03/11/22 03/11/22 03/10/22 05:14 05:14 08:05 WBC 12.1 H RBC 3.47 L Hgb 10.2 L Hct 31.8 L RDW 15.4 H MPV 13.0 H Immature Gran % (Auto) Lymph % (Auto) [place] # (Auto) Immature Gran # 0.06 H Absolute Neutrophils ESR D-Dimer Carbon Dioxide BUN 51 H Creatinine 2.0 H Glucose 106 H Uric Acid Calcium 8.5 L C-Reactive Protein 17.60 H Urine Protein 100 mg/dl A Ur Leukocyte Esterase Trace A Urine WBC 7 H 03/09/22 03/09/22 03/09/22 23:24 23:24 23:24 WBC 17.7 H RBC Hgb 11.0 L Hct 33.7 L RDW 15.4 H MPV 13.0 H Immature Gran % (Auto) 0.6 H Lymph % (Auto) 15.3 L [place] # (Auto) 1.07 H Immature Gran # 0.10 H Absolute Neutrophils 13.76 H ESR 75 H D-Dimer Carbon Dioxide 31 H BUN 53 H Creatinine 2.4 H Glucose 131 H Uric Acid 11.5 H Calcium C-Reactive Protein 33.70 H Urine Protein Ur Leukocyte Esterase Urine WBC Meds: Medications Acetaminophen (Acetaminophen 325 Mg Tablet) 650 mg PO Q6HP PRN; Protocol PRN Reason: Per Pain Protocol/Fever > 101 Last Admin: 03/12/22 08:49 Dose: 650 mg Hydrocodone Bitart/Acetaminophen (Hydrocodone/Apap 7.5/325mg Tablet) 1 tab PO QIDP PRN PRN Reason: Pain Last Admin: 03/11/22 10:20 Dose: 1 tab Albuterol/Ipratropium (Ipratropium/Albuterol 3 Ml Ampul.Neb) 3 ml NEB [id number] S Last Admin: 03/12/22 07:34 Dose: 3 ml Atorvastatin Calcium (Atorvastatin 40 Mg Tablet) 80 mg PO HS [facility] Last Admin: 03/11/22 20:25 Dose: 80 mg Cefepime HCl (Cefepime 2 Gm Vial) 2 gm IV Q24H [facility]; Protocol Last Admin: 03/12/22 08:50 Dose: 2 gm Dextrose (Dextrose 50% 50 Ml Vial) 0 ml IV UD PRN PRN Reason: Per Sliding Scale Diagnostic Test (Pha) (Accu-Chek 1 Each Strip) 1 each FS [facility] Last Admin: 03/12/22 07:52 Dose: 1 each Docusate Sodium (Docusate Sodium 100 Mg Capsule) 100 mg PO BID [facility] Last Admin: 03/12/22 08:50 Dose: 100 mg Furosemide (Furosemide 40 Mg/4 Ml Vial) 40 mg IV BIDD [facility] Last Admin: 03/12/22 08:48 Dose: 40 mg Glucose (Dextrose 31 Gm Oral.Susp) 15 gm PO PRN PRN PRN Reason: Hypoglycemia Heparin Sodium (Porcine) (Heparin 5,000 Unit/Ml Vial) 5,000 unit SQ Q12 [facility] Last Admin: 03/12/22 08:48 Dose: 5,000 unit Insulin Human Lispro (Insulin Lispro 1 Unit/0.01 Ml Unit) 0 unit SQ [facility]; Protocol Last Admin: 03/12/22 07:58 Dose: 2 unit Morphine Sulfate (Morphine 4 Mg/Ml Vial) 4 mg IV Q4HP PRN; Protocol PRN Reason: Per Pain Protocol Ondansetron HCl (Ondansetron 4 Mg/2 Ml Vial) 4 mg IV Q6HP PRN PRN Reason: Nausea And Vomiting Oxycodone HCl (Oxycodone Hcl 5 Mg Tablet) 5 mg PO Q4HP PRN; Protocol PRN Reason: Per Pain Protocol Last Admin: 03/11/22 15:35 Dose: 5 mg Pregabalin (Pregabalin 150 Mg Capsule) 150 mg PO BID [facility] Last Admin: 03/12/22 08:50 Dose: 150 mg Senna (Sennosides 1 Tablet) 2 tab PO HS [facility] Last Admin: 03/11/22 20:25 Dose: 2 tab Sodium Chloride (0.9 % Sodium Chloride 10 Ml Syringe) 10 ml IV Q8 [facility] Last Admin: 03/12/22 04:54 Dose: Not Given A/P Narrative A/P Narrative: The is a longstanding poorly controlled diabetic and was found to have a diabetic foot ulcer that appears to be infected resulting in purulent cellulitis. We will obtain an MRI to see if there is any underlying osteomyelitis. Dr. Dasilva has been consulted to see if any debridement is necessary. We will continue vancomycin and cefepime. The patient's home oral ID glycemic have been held and we will continue insulin sliding scale. 03/11: The patient underwent her MRI today which was negative for osteomyelitis and this is reassuring. We will continue antibiotic therapy with vancomycin and cefepime. She will be seen by wound care likely on Sunday. They will decide if debridement is required. 03/12: The patient's MRSA screen is negative and we will discontinue vancomycin. She was received 3 days of Vanco Ancef. She has underlying congestive heart failure and she was previously hospitalized for severe hypocalcemia in the setting of diuretic use resulting in tetany. Her torsemide is being held. We will now repeat BNP, started on Lasix 40 mg IV twice daily as her chest x-ray was concerning for pulmonary edema. TTE has been ordered. Due to her multiple medical comorbidities including peripheral vascular disease with poor TBI, iris ttle diabetes, CKD, congestive heart failure, we did have goals of care discussion as she is high risk for readmission. Wound care will follow up tomorrow. Time Spent With Patient Time: Total time spent is greater than 50% in coordination of care (as documented) at patient's floor/unit and/or counseling patient: Total time spent with greater than 50% in coordination of care (as documented) at patient's floor/unit and/or counseling patient:: 25 - 35 minutes QUALITY VTE Deep Vein Thrombosis/Pulmonary Embolism Present on Admission: No
[2022-03-12] MEDS ORDERED: IPRATROPIUM/ALBUTEROL 3 ML AMPUL.NEB NEB PRN (18:36)
[2022-03-12] MEDS: HYDROCODONE/APAP 7.5/325MG TABLET PO PRN (20:34)
[2022-03-12] MEDS: SENNOSIDES 1 TABLET PO SCH (20:35)
[2022-03-12] MEDS: ATORVASTATIN 40 MG TABLET PO SCH (20:35)
[2022-03-13 06:16] LABS: Basophils # (Auto) 0.07 K/mcL (0.00-0.30); Basophils % (Auto) 0.6 % (0.0-2.0); Eosinophils # (Auto) 0.38 K/mcL (0.00-0.70); Eosinophils % (Auto) 3.5 % (0.0-7.0); Hematocrit 31.8 % (34.1-44.9); Hemoglobin 9.9 g/dL (11.2-15.7); Lymphocytes # (Auto) 3.58 K/mcL (1.50-4.80); Lymphocytes % (Auto) 32.7 % (15.5-49.0); Mean Cell Volume 94.9 fL (80.0-100.0); Mean Corpuscular HGB Conc 31.1 g/dL (31.0-36.0); Mean Platelet Volume 12.7 fL (7.4-10.4); Monocytes % (Auto) 5.5 % (1.0-12.0); Neutrophils % (Auto) 56.2 % (38.0-78.0); Platelet Count 266 K/mcL (140-440); RBC 3.35 M/mcL (3.59-5.38); Red Cell Distribution Width 15.7 % (11.5-14.5)
[2022-03-13 06:48] LABS: Blood Urea Nitrogen 57 mg/dL (8-23); Calcium 8.9 mg/dL (8.6-10.4); Carbon Dioxide 24 mmol/L (22-30); Chloride 103 mmol/L (96-108); Glomerular Filtration Rate 31; Glucose 147 mg/dL (70-105)
[2022-03-13] MEDS: 0.9 % SODIUM CHLORIDE 10 ML SYRINGE IV SCH ×3 (06:51→20:45)
[2022-03-13] MEDS: INSULIN LISPRO 1 UNIT/0.01 ML UNIT SQ SCH ×4 (07:23→20:44)
[2022-03-13] MEDS: CEFEPIME 2 GM VIAL IV SCH (08:14)
[2022-03-13] MEDS: DOCUSATE SODIUM 100 MG CAPSULE PO SCH ×2 (08:14→20:32)
[2022-03-13] MEDS: FUROSEMIDE 40 MG/4 ML VIAL IV SCH ×2 (08:14→16:12)
[2022-03-13] MEDS: HEPARIN 5,000 UNIT/ML VIAL SQ SCH ×2 (08:14→20:36)
[2022-03-13] MEDS: PREGABALIN 150 MG CAPSULE PO SCH ×2 (08:14→20:32)
[2022-03-13] MEDS: HYDROCODONE/APAP 7.5/325MG TABLET PO PRN ×2 (10:14→20:36)
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
--- NOTE | 2022-03-13 18:18 | General Surgery Progress Note ---
SUBJECTIVE Subjective Patient information: Note initiated : 03/13/22 at 6:15 pm Service Date, if different from initiated Date: [] Patient: Rosina Morris 76 y/o F admitted on 03/10/22 for R ankle pain. Chief Complaint: [] Principal diagnosis: Infected diabetic foot ulcer, right Constitutional Vitals: Vital Signs Temp Pulse Resp BP Pulse Ox O2 Del Method O2 Flow Rate 98.1 F 89 20 155/83 93 2 03/13/22 16:00 03/13/22 16:00 03/13/22 16:00 03/13/22 16:00 03/13/22 16:00 03/13/22 16:00 03/12/22 11:19 Period Temp Pulse Resp BP Sys/Pedersen Pulse Ox O2 Del Method O2 Flow Rate Last 24 Hr 97.8 F-98.3 F 88-110 14-20 127-155/65-83 90-95 Room Air-Room Air Intake and Output 03/13/22 03/13/22 03/13/22 05:59 13:59 21:59 Intake Total 200 220 240 Output Total 550 800 900 Balance -350 -580 -660 Intake & Output: Intake & Output 03/13/22 03/13/22 03/13/22 05:59 13:59 21:59 Intake Total 200 220 240 Output Total 550 800 900 Balance -350 -580 -660 Intake: Oral 200 220 240 Output: Void Amount 550 800 900 Other: Meal Breakfast Dinner Percent of Meal Consumed 100% 100% Feeding Ability Assist with Tray Set Up Assist with Tray Set Up Urine Color Yellow Yellow Urine Odor Normal Stool Size Moderate Stool Color Brown Stool Consistency Normal for Patient # Bowel Movements 1 A/P Narrative A/P Narrative: Brief Note. Saw patient this afternoon and again short time ago She was OOB in chair and eating her meal. Spoke with her and Angeles HUDSON. Plan on debriding this wound tomorrow after her breakfast. Updated Dr. Mayank MD Hospitalist . Thanks. Time Spent With Patient Time: Total time spent is greater than 50% in coordination of care (as documented) at patient's floor/unit and/or counseling patient:
--- NOTE | 2022-03-13 19:31 | Internal Med Progress Note ---
SUBJECTIVE Subjective Patient information: Note initiated : 03/13/22 at 7:30 pm Service Date, if different from initiated Date: [] Patient: Rosina Morris 76 y/o F admitted on 03/10/22 for R ankle pain. Chief Complaint: [] Principal diagnosis: Infected diabetic foot ulcer, right Interval history: 03/10: Ms. Morris is a 76 year old F with a complex past medical history significant for type 2 diabetes mellitus complicated by gastroparesis, and neuropathy, former smoker, history of bladder CA, and CKD stage III/IV who presents to the hospital with 2-day history of worsening right foot swelling, erythema and pain. The patient states that she noticed this on Sunday morning. Her son came over and did a foot exam. That is when she noticed there was a diabetic foot ulcer on the plantar aspect. There was dried skin and the son removed at and was able to manipulate the area for pus drainage. She presented to the hospital for further management and evaluation. On arrival she was hemodynamically stable and afebrile however her white blood cell count was found to be elevated at 17.7. The patient had CT of the right foot which revealed possible gout involving the right first metatarsal phalangeal joint, possible fractured sesamoid at the right first metatarsal, healing fracture of the right fourth proximal phalanx, and no soft tissue wound identified. No definitive evidence of osteomyelitis. The hospitalist service was asked admit the patient for further management and evaluation of her diabetic foot ulcer 03/11: The patient underwent her MRI today which was negative for osteomyelitis and this is reassuring. We will continue antibiotic therapy with vancomycin and cefepime. She will be seen by wound care likely on Sunday. They will decide if debridement is required. 03/12: The patient's MRSA screen is negative and we will discontinue vancomycin. She was received 3 days of Vanco. Yesterday evening, the patient was hypoxemic with an O2 sat in the 80s. We checked a chest x-ray and D-dimer. She was placed on 3 L of supplemental O2. This morning she was resting comfortably in her chair.She has underlying congestive heart failure and she was previously hospitalized for severe hypocalcemia in the setting of diuretic use resulting in tetany. Her torsemide is being held. We will now repeat BNP, started on Lasix 40 mg IV twice daily as her chest x-ray was concerning for pulmonary edema. TTE has been ordered. Due to her multiple medical comorbidities including peripheral vascular disease with poor TBI, brittle diabetes, CKD, congestive heart failure, we did have goals of care discussion as she is high risk for readmission. Wound care will follow up tomorrow. 03/13: No new complaints this morning. Has been seen by Dr. Dasilva who plans bedside procedure. Echo shows low normal LVEF of 50%. Constitutional Vitals: Vital Signs Temp Pulse Resp BP Pulse Ox O2 Del Method O2 Flow Rate 98.1 F 89 20 155/83 93 2 03/13/22 16:00 03/13/22 16:00 03/13/22 16:00 03/13/22 16:00 03/13/22 16:00 03/13/22 16:00 03/12/22 11:19 Period Temp Pulse Resp BP Sys/Pedersen Pulse Ox O2 Del Method O2 Flow Rate Last 24 Hr 97.8 F-98.3 F 89-98 14-20 127-155/65-83 90-93 Room Air-Room Air Intake and Output 03/13/22 03/13/22 03/13/22 05:59 13:59 21:59 Intake Total 200 220 240 Output Total 550 800 900 Balance -350 -580 -660 Intake & Output: Intake & Output 03/13/22 03/13/22 03/13/22 05:59 13:59 21:59 Intake Total 200 220 240 Output Total 550 800 900 Balance -350 -580 -660 Intake: Oral 200 220 240 Output: Void Amount 550 800 900 Other: Meal Breakfast Dinner Percent of Meal Consumed 100% 100% Feeding Ability Assist with Tray Set Up Assist with Tray Set Up Urine Color Yellow Yellow Urine Odor Normal Stool Size Moderate Stool Color Brown Stool Consistency Normal for Patient # Bowel Movements 1 GENERAL: Sitting up in chair at bedside, mildly ill-appearing RESPIRATORY: Clear bilaterally, no crackles, no rales CARDIOVASCULAR: Regular rate and rhythm with 2/6 systolic murmur at the upper right sternal border ABDOMEN: Soft, nontender EXTREMITIES: Right foot with dressing over base of great toe, area of macerated skin, mild erythema without drainage noted NEURO: Alert, oriented x3, decreased sensation in the feet bilaterally, am bulatory OBJ DATA Labs CBC & Chem 7: 03/13/22 05:17 03/13/22 05:18 Labs: Abnormal Lab Results 03/13/22 03/13/22 03/12/22 05:18 05:17 08:16 WBC RBC 3.35 L Hgb 9.9 L Hct 31.8 L RDW 15.7 H MPV 12.7 H Immature Gran % (Auto) 1.5 H Immature Gran # 0.16 H D-Dimer BUN 57 H 47 H Creatinine 1.6 H 1.8 H Glucose 147 H 149 H Calcium C-Reactive Protein 03/12/22 03/11/22 03/11/22 08:16 22:08 05:14 WBC 12.6 H RBC 3.44 L Hgb 10.2 L Hct 32.4 L RDW 15.6 H MPV 12.8 H Immature Gran % (Auto) 0.6 H Immature Gran # 0.08 H D-Dimer 2.39 H BUN 51 H Creatinine 2.0 H Glucose 106 H Calcium 8.5 L C-Reactive Protein 17.60 H 03/11/22 05:14 WBC 12.1 H RBC 3.47 L Hgb 10.2 L Hct 31.8 L RDW 15.4 H MPV 13.0 H Immature Gran % (Auto) Immature Gran # 0.06 H D-Dimer BUN Creatinine Glucose Calcium C-Reactive Protein Meds: Medications Acetaminophen (Acetaminophen 325 Mg Tablet) 650 mg PO Q6HP PRN; Protocol PRN Reason: Per Pain Protocol/Fever > 101 Last Admin: 03/12/22 08:49 Dose: 650 mg Hydrocodone Bitart/Acetaminophen (Hydrocodone/Apap 7.5/325mg Tablet) 1 tab PO QIDP PRN PRN Reason: Pain Last Admin: 03/13/22 10:14 Dose: 1 tab Albuterol/Ipratropium (Ipratropium/Albuterol 3 Ml Ampul.Neb) 3 ml NEB Q4HP PRN PRN Reason: Shortness Of Breath Last Admin: 03/13/22 04:12 Dose: 3 ml Atorvastatin Calcium (Atorvastatin 40 Mg Tablet) 80 mg PO HS [facility] Last Admin: 03/12/22 20:35 Dose: 80 mg Cefepime HCl (Cefepime 2 Gm Vial) 2 gm IV Q24H [facility]; Protocol Last Admin: 03/13/22 08:14 Dose: 2 gm Dextrose (Dextrose 50% 50 Ml Vial) 0 ml IV UD PRN PRN Reason: Per Sliding Scale Diagnostic Test (Pha) (Accu-Chek 1 Each Strip) 1 each FS ACHS [facility] Last Admin: 03/13/22 17:36 Dose: 1 each Docusate Sodium (Docusate Sodium 100 Mg Capsule) 100 mg PO BID [facility] Last Admin: 03/13/22 08:14 Dose: 100 mg Furosemide (Furosemide 40 Mg/4 Ml Vial) 40 mg IV BIDD [facility] Last Admin: 03/13/22 16:12 Dose: 40 mg Glucose (Dextrose 31 Gm Oral.Susp) 15 gm PO PRN PRN PRN Reason: Hypoglycemia Heparin Sodium (Porcine) (Heparin 5,000 Unit/Ml Vial) 5,000 unit SQ Q12 [facility] Last Admin: 03/13/22 08:14 Dose: 5,000 unit Insulin Human Lispro (Insulin Lispro 1 Unit/0.01 Ml Unit) 0 unit SQ [facility]; Protocol Last Admin: 03/13/22 17:36 Dose: 4 unit Morphine Sulfate (Morphine 4 Mg/Ml Vial) 4 mg IV Q4HP PRN; Protocol PRN Reason: Per Pain Protocol Ondansetron HCl (Ondansetron 4 Mg/2 Ml Vial) 4 mg IV Q6HP PRN PRN Reason: Nausea And Vomiting Oxycodone HCl (Oxycodone Hcl 5 Mg Tablet) 5 mg PO Q4HP PRN; Protocol PRN Reason: Per Pain Protocol Last Admin: 03/11/22 15:35 Dose: 5 mg Pregabalin (Pregabalin 150 Mg Capsule) 150 mg PO BID [facility] Last Admin: 03/13/22 08:14 Dose: 150 mg Senna (Sennosides 1 Tablet) 2 tab PO HS [facility] Last Admin: 03/12/22 20:35 Dose: 2 tab Sodium Chloride (0.9 % Sodium Chloride 10 Ml Syringe) 10 ml IV Q8 [facility] Last Admin: 03/13/22 16:12 Dose: 10 ml A/P Narrative A/P Narrative: 76-year-old female with a history of type 2 diabetes with peripheral neuropathy presented with new onset diabetic foot wound of the right forefoot with associated cellulitis Diabetic foot ulcer with cellulitis -Initially on vancomycin and cefepime -MRSA swab negative, vancomycin stopped -Remains on cefepime -Wound care consulting Pulmonary edema -Patient had been on torsemide previously -Diuretics is stopped due to severe hypocalcemia -Decompensated Sunday night -Tolerating furosemide -Preserved LVEF on echo -Appears back to baseline 03/13 Type 2 diabetes mellitus -On sliding scale insulin CKD -Creatinine 1.6 and stable Plan: * Continue cefepime * Wound care as per Dr. Medrano * Continue with diabetes care * Continue with diuretic Disposition: Likely home in 1-3 days depending on wound care needs Time Spent With Patient Time: Total time spent is greater than 50% in coordination of care (as documented) at patient's floor/unit and/or counseling patient: Total time spent with greater than 50% in coordination of care (as documented) at patient's floor/unit and/or counseling patient:: 35 - 50 minutes QUALITY VTE Deep Vein Thrombosis/Pulmonary Embolism Present on Admission: No
[2022-03-13] MEDS: ATORVASTATIN 40 MG TABLET PO SCH (20:32)
[2022-03-13] MEDS: SENNOSIDES 1 TABLET PO SCH (20:32)
[2022-03-14] MEDS: 0.9 % SODIUM CHLORIDE 10 ML SYRINGE IV SCH ×3 (07:38→20:58)
[2022-03-14] MEDS: INSULIN LISPRO 1 UNIT/0.01 ML UNIT SQ SCH ×4 (07:47→21:16)
[2022-03-14] MEDS: HEPARIN 5,000 UNIT/ML VIAL SQ SCH (08:41)
[2022-03-14] MEDS: DOCUSATE SODIUM 100 MG CAPSULE PO SCH ×2 (08:41→20:57)
[2022-03-14] MEDS: PREGABALIN 150 MG CAPSULE PO SCH ×2 (08:41→20:57)
[2022-03-14] MEDS: FUROSEMIDE 40 MG/4 ML VIAL IV SCH (08:42)
[2022-03-14] MEDS: CEFEPIME 2 GM VIAL IV SCH ×2 (08:42→20:58)
[2022-03-14] MEDS: HYDROCODONE/APAP 7.5/325MG TABLET PO PRN ×2 (10:43→19:15)
--- NOTE | 2022-03-14 11:03 | General Surgery Progress Note ---
SUBJECTIVE Subjective Patient information: Note initiated : 03/14/22 at 10:57 am Service Date, if different from initiated Date: [] Patient: Rosina Morris 76 y/o F admitted on 03/10/22 for R ankle pain. Chief Complaint: [] Principal diagnosis: Infected diabetic foot ulcer, right Additional PMFSH (Level 3 Only): Patient seen with Minh Gallagher RN. Reviewed progress. ECHO cardiogram EF is > 50%. Patient is comfortable at her baseline. Constitutional Vitals: Vital Signs Temp Pulse Resp BP Pulse Ox O2 Del Method O2 Flow Rate 98.7 F 104 H 20 156/82 91 2 03/14/22 08:00 03/14/22 08:00 03/14/22 08:00 03/14/22 08:00 03/14/22 08:30 03/14/22 08:30 03/12/22 11:19 Period Temp Pulse Resp BP Sys/Pedersen Pulse Ox O2 Del Method O2 Flow Rate Last 24 Hr 98.1 F-99.1 F 89-104 20-20 135-160/57-84 90-93 Room Air-Room Air Intake and Output 03/13/22 03/14/22 03/14/22 21:59 05:59 13:59 Intake Total 240 450 340 Output Total 1500 1200 250 Balance -1260 -750 90 Weight 156 lb Intake & Output: Intake & Output 03/13/22 03/14/22 03/14/22 21:59 05:59 13:59 Intake Total 240 450 340 Output Total 1500 1200 250 Balance -1260 -750 90 Weight 156 lb Intake: Oral 240 450 340 Output: Void Amount 1500 1200 250 Other: Meal Dinner Breakfast Percent of Meal Consumed 100% 100% Feeding Ability Assist with Tray Set Up Independent Urine Appearance Clear Clear Urine Color Yellow Yellow Yellow Urine Odor Normal # Bowel Movements 1 Exam: AVSS. No changes ANA LUISA. L/E. RIGHT planter PU under 1st toe MPJ Yellow slough over wound base. Stage 3 ulcer. Periwound skin and sub cutaneous tissue DRY Will dbride ulcer at bedside and send tissue for c/s. Informed consent obtained. A/P Narrative A/P Narrative: Assessment: No acute interval changes. DFU Right plantar under great toe Plan: Debridement and tissue for c/s. Physical therapy consult. Re: Offloading foot. Heel weight bearing for transfers. Reassess patient in AM 03/15/2022. Time Spent With Patient Time: Total time spent is greater than 50% in coordination of care (as documented) at patient's floor/unit and/or counseling patient: Total time spent with greater than 50% in coordination of care (as documented) at patient's floor/unit and/or counseling patient:: 25 - 35 minutes
--- NOTE | 2022-03-14 11:07 | General Surgery Procedure Note ---
Date of procedure: Note initiated : 03/14/22 at 11:03 am Service Date, if different from initiated Date: [] Pre-op diagnosis: DFU. Stage 3 ulcer under RIGHT great to MPJ Post-op diagnosis: same Procedure: Selective debridement at bedside. Tissue for c/s. Findings: Stage 3 ulcer under RIGHT great toe MPJ. Anesthesia: local Surgeon: Chas Dasilva Estimated blood loss: 0 Pathology: other (Tissue for c/s.) Description of procedure: Selective debridement under LA 1% Xylociane 3 ml Condition: stable Disposition: floor
--- NOTE | 2022-03-14 11:09 | Internal Med Progress Note ---
SUBJECTIVE Subjective Patient information: Note initiated : 03/14/22 at 11:05 am Service Date, if different from initiated Date: [] Patient: Rosina Morris 76 y/o F admitted on 03/10/22 for R ankle pain. Chief Complaint: [] Principal diagnosis: Infected diabetic foot ulcer, right Interval history: 03/10: Ms. Morris is a 76 year old F with a complex past medical history significant for type 2 diabetes mellitus complicated by gastroparesis, and neuropathy, former smoker, history of bladder CA, and CKD stage III/IV who presents to the hospital with 2-day history of worsening right foot swelling, erythema and pain. The patient states that she noticed this on Sunday morning. Her son came over and did a foot exam. That is when she noticed there was a diabetic foot ulcer on the plantar aspect. There was dried skin and the son removed at and was able to manipulate the area for pus drainage. She presented to the hospital for further management and evaluation. On arrival she was hemodynamically stable and afebrile however her white blood cell count was found to be elevated at 17.7. The patient had CT of the right foot which revealed possible gout involving the right first metatarsal phalangeal joint, possible fractured sesamoid at the right first metatarsal, healing fracture of the right fourth proximal phalanx, and no soft tissue wound identified. No definitive evidence of osteomyelitis. The hospitalist service was asked admit the patient for further management and evaluation of her diabetic foot ulcer 03/11: The patient underwent her MRI today which was negative for osteomyelitis and this is reassuring. We will continue antibiotic therapy with vancomycin and cefepime. She will be seen by wound care likely on Sunday. They will decide if debridement is required. 03/12: The patient's MRSA screen is negative and we will discontinue vancomycin. She was received 3 days of Vanco. Yesterday evening, the patient was hypoxemic with an O2 sat in the 80s. We checked a chest x-ray and D-dimer. She was placed on 3 L of supplemental O2. This morning she was resting comfortably in her chair.She has underlying congestive heart failure and she was previously hospitalized for severe hypocalcemia in the setting of diuretic use resulting in tetany. Her torsemide is being held. We will now repeat BNP, started on Lasix 40 mg IV twice daily as her chest x-ray was concerning for pulmonary edema. TTE has been ordered. Due to her multiple medical comorbidities including peripheral vascular disease with poor TBI, brittle diabetes, CKD, congestive heart failure, we did have goals of care discussion as she is high risk for readmission. Wound care will follow up tomorrow. 03/13: No new complaints this morning. Has been seen by Dr. Dasilva who plans bedside procedure. Echo shows low normal LVEF of 50%. 03/14: Bedside debridement by Dr. Medrano. [place] to be neuropathic ulcer, stage III. He is requesting physical therapy to work on heel weightbearing only. Continues to diurese well. Constitutional Vitals: Vital Signs Temp Pulse Resp BP Pulse Ox O2 Del Method O2 Flow Rate 98.7 F 104 H 20 156/82 91 2 03/14/22 08:00 03/14/22 08:00 03/14/22 08:00 03/14/22 08:00 03/14/22 08:30 03/14/22 08:30 03/12/22 11:19 Period Temp Pulse Resp BP Sys/Pedersen Pulse Ox O2 Del Method O2 Flow Rate Last 24 Hr 98.1 F-99.1 F 89-104 20-20 135-160/57-84 90-93 Room Air-Room Air Intake and Output 03/13/22 03/14/22 03/14/22 21:59 05:59 13:59 Intake Total 240 450 340 Output Total 1500 1200 750 Balance -1260 -750 -410 Weight 156 lb Intake & Output: Intake & Output 03/13/22 03/14/22 03/14/22 21:59 05:59 13:59 Intake Total 240 450 340 Output Total 1500 1200 750 Balance -1260 -750 -410 Weight 156 lb Intake: Oral 240 450 340 Output: Void Amount 1500 1200 750 Other: Meal Dinner Breakfast Percent of Meal Consumed 100% 100% Feeding Ability Assist with Tray Set Up Independent Urine Appearance Clear Clear Urine Color Yellow Yellow Yellow Urine Odor Normal # Bowel Movements 1 GENERAL: In bed, nontoxic-appearing RESPIRATORY: Clear, unlabored CARDIOVASCULAR: Regular ABDOMEN: Soft EXTREMITIES: No edema; right great toe wound with dressing in place, not evaluated as wound care to do debridement later in the morning NEURO: Alert, oriented x3, decreased sensation in the feet OBJ DATA Labs CBC & Chem 7: 03/13/22 05:17 03/13/22 05:18 Labs: Abnormal Lab Results 03/13/22 03/13/22 03/12/22 05:18 05:17 08:16 WBC RBC 3.35 L Hgb 9.9 L Hct 31.8 L RDW 15.7 H MPV 12.7 H Immature Gran % (Auto) 1.5 H Immature Gran # 0.16 H D-Dimer BUN 57 H 47 H Creatinine 1.6 H 1.8 H Glucose 147 H 149 H 03/12/22 03/11/22 08:16 22:08 WBC 12.6 H RBC 3.44 L Hgb 10.2 L Hct 32.4 L RDW 15.6 H MPV 12.8 H Immature Gran % (Auto) 0.6 H Immature Gran # 0.08 H D-Dimer 2.39 H BUN Creatinine Glucose Meds: Medications Acetaminophen (Acetaminophen 325 Mg Tablet) 650 mg PO Q6HP PRN; Protocol PRN Reason: Per Pain Protocol/Fever > 101 Last Admin: 03/12/22 08:49 Dose: 650 mg Hydrocodone Bitart/Acetaminophen (Hydrocodone/Apap 7.5/325mg Tablet) 1 tab PO QIDP PRN PRN Reason: Pain Last Admin: 03/14/22 10:43 Dose: 1 tab Albuterol/Ipratropium (Ipratropium/Albuterol 3 Ml Ampul.Neb) 3 ml NEB Q4HP PRN PRN Reason: Shortness Of Breath Last Admin: 03/13/22 04:12 Dose: 3 ml Atorvastatin Calcium (Atorvastatin 40 Mg Tablet) 80 mg PO HS [facility] Last Admin: 03/13/22 20:32 Dose: 80 mg Cefepime HCl (Cefepime 2 Gm Vial) 2 gm IV Q12H [facility]; Protocol Last Admin: 03/14/22 08:42 Dose: 2 gm Dextrose (Dextrose 50% 50 Ml Vial) 0 ml IV UD PRN PRN Reason: Per Sliding Scale Diagnostic Test (Pha) (Accu-Chek 1 Each Strip) 1 each FS ACHS [facility] Last Admin: 03/14/22 07:41 Dose: 1 each Docusate Sodium (Docusate Sodium 100 Mg Capsule) 100 mg PO BID [facility] Last Admin: 03/14/22 08:41 Dose: 100 mg Furosemide (Furosemide 40 Mg/4 Ml Vial) 40 mg IV BIDD [facility] Last Admin: 03/14/22 08:42 Dose: 40 mg Glucose (Dextrose 31 Gm Oral.Susp) 15 gm PO PRN PRN PRN Reason: Hypoglycemia Heparin Sodium (Porcine) (Heparin 5,000 Unit/Ml Vial) 5,000 unit SQ Q12 [facility] Last Admin: 03/14/22 08:41 Dose: 5,000 unit Insulin Human Lispro (Insulin Lispro 1 Unit/0.01 Ml Unit) 0 unit SQ ACHS [facility]; Protocol Last Admin: 03/14/22 07:47 Dose: 2 unit Morphine Sulfate (Morphine 4 Mg/Ml Vial) 4 mg IV Q4HP PRN; Protocol PRN Reason: Per Pain Protocol Ondansetron HCl (Ondansetron 4 Mg/2 Ml Vial) 4 mg IV Q6HP PRN PRN Reason: Nausea And Vomiting Oxycodone HCl (Oxycodone Hcl 5 Mg Tablet) 5 mg PO Q4HP PRN; Protocol PRN Reason: Per Pain Protocol Last Admin: 03/11/22 15:35 Dose: 5 mg Pregabalin (Pregabalin 150 Mg Capsule) 150 mg PO BID [facility] Last Admin: 03/14/22 08:41 Dose: 150 mg Senna (Sennosides 1 Tablet) 2 tab PO HS [facility] Last Admin: 03/13/22 20:32 Dose: 2 tab Sodium Chloride (0.9 % Sodium Chloride 10 Ml Syringe) 10 ml IV Q8 [facility] Last Admin: 03/14/22 07:38 Dose: 10 ml A/P Narrative A/P Narrative: 76-year-old female with a history of type 2 diabetes with peripheral neuropathy presented with new onset diabetic foot wound of the right forefoot with associated cellulitis Diabetic foot ulcer with cellulitis -Initially on vancomycin and cefepime -MRSA swab negative, vancomycin stopped -Remains on cefepime -Wound care consulting -Bedside debridement on 03/14, stage III neuropathic ulcer -PT to evaluate and work for heel weightbearing -Dr. Dasilva recommends continuing oral antibiotics after discharge Pulmonary edema -Patient had been on torsemide previously -Diuretics is stopped due to severe hypocalcemia -Decompensated Sunday night -Tolerating furosemide -Preserved LVEF on echo -Appears back to baseline 03/13 -Decreasing furosemide on 03/14 Type 2 diabetes mellitus -On sliding scale insulin CKD -Creatinine 1.6 and stable Plan: * Continue antibiotics with cefepime * Further wound care as per Dr. Dasilva and team * Continue with current diabetic care * PT evaluation to work on heel weightbearing * Decrease furosemide to 20 mg p.o. daily * Recheck labs in the morning Disposition: Likely home in 1-2 days depending on wound care needs Time Spent With Patient Time: Total time spent is greater than 50% in coordination of care (as documented) at patient's floor/unit and/or counseling patient: Total time spent with greater than 50% in coordination of care (as documented) at patient's floor/unit and/or counseling patient:: 25 - 35 minutes QUALITY VTE Deep Vein Thrombosis/Pulmonary Embolism Present on Admission: No
--- NOTE | 2022-03-14 11:38 | Operative Note ---
DATE OF OPERATION: 03/14/2022 PREOPERATIVE DIAGNOSIS: Diabetic foot ulcer, stage III under right great toe MPJ. POSTOPERATIVE DIAGNOSIS: Diabetic foot ulcer, stage III under right great toe MPJ. PROCEDURE: Selective debridement at bedside. Tissue obtained for culture and sensitivity. SURGEON: Chas Dasilva M.D. FINDINGS: This is a stage III ulcer under the right great toe. It corresponds to the head of the first metatarsal bone. There is yellow slough at the wound base. Periwound skin is dry. The patient probably had a blister, which has ruptured leading to this neuropathic ulcer and slough. ESTIMATED BLOOD LOSS: Zero. INSTRUMENT COUNTS: Count of swabs, instruments, and needles was reported to be correct. CONDITION. Procedure was well tolerated. MEDICATION: 1% Xylocaine without epinephrine to infiltrate the skin and edges and subcutaneous tissues. INDICATIONS: This patient is admitted for the second time in the last months or so. She was admitted with uncontrolled diabetes, urinary tract infection, kidney failure. The second time around, she was admitted with similar complaints and treated appropriately. Physical examination at this time revealed a diabetic foot ulcer with slough at the base of the plantar aspect of Right great toe.. At this time, a wound care consult was called. PROCEDURE NOTE IN DETAIL: After obtaining informed consent, I proceeded to carry out this procedure at the bedside. With adequate help from the nursing staff, the area was cleaned with chlorhexidine solution. Local anesthetic, 1% Xylocaine without epinephrine was injected in the subcutaneous tissues around and under the wound. We used a #5 curette and carried out tangential excision, debridement of the wound edges at the wound base. [employer] sample was obtained for culture and sensitivity from the midportion of the ulcer. Hemostasis was achieved with pressure and elevation. Dressings consisted of Xeroform gauze, 4 x 4 gauze, Kerlix, and Miguel bandages, respectively. Postoperatively, plan is to await culture and sensitivity results. We will request a physical therapy consult for nonweightbearing or partial weightbearing on the heel for transfers. After discharge, the patient should be seen at [facility] for continued care. I spoke with Dr. Briones, Hospitalist about this patient's procedure. [email or web address] Job ID: [id number] Doc ID: [id number] Chas Dasilva MD [facility]
--- NOTE | 2022-03-14 14:18 | Internal Med Progress Note ---
SUBJECTIVE Subjective Patient information: Note initiated : 03/14/22 at 2:14 pm Service Date, if different from initiated Date: [] Patient: Rosina Morris 76 y/o F admitted on 03/10/22 for R ankle pain. Chief Complaint: [] Principal diagnosis: Infected diabetic foot ulcer, right Interval history: 03/10: Ms. Morris is a 76 year old F with a complex past medical history significant for type 2 diabetes mellitus complicated by gastroparesis, and neuropathy, former smoker, history of bladder CA, and CKD stage III/IV who presents to the hospital with 2-day history of worsening right foot swelling, erythema and pain. The patient states that she noticed this on Sunday morning. Her son came over and did a foot exam. That is when she noticed there was a diabetic foot ulcer on the plantar aspect. There was dried skin and the son removed at and was able to manipulate the area for pus drainage. She presented to the hospital for further management and evaluation. On arrival she was hemodynamically stable and afebrile however her white blood cell count was found to be elevated at 17.7. The patient had CT of the right foot which revealed possible gout involving the right first metatarsal phalangeal joint, possible fractured sesamoid at the right first metatarsal, healing fracture of the right fourth proximal phalanx, and no soft tissue wound identified. No definitive evidence of osteomyelitis. The hospitalist service was asked admit the patient for further management and evaluation of her diabetic foot ulcer 03/11: The patient underwent her MRI today which was negative for osteomyelitis and this is reassuring. We will continue antibiotic therapy with vancomycin and cefepime. She will be seen by wound care likely on Sunday. They will decide if debridement is required. 03/12: The patient's MRSA screen is negative and we will discontinue vancomycin. She was received 3 days of Vanco. Yesterday evening, the patient was hypoxemic with an O2 sat in the 80s. We checked a chest x-ray and D-dimer. She was placed on 3 L of supplemental O2. This morning she was resting comfortably in her chair.She has underlying congestive heart failure and she was previously hospitalized for severe hypocalcemia in the setting of diuretic use resulting in tetany. Her torsemide is being held. We will now repeat BNP, started on Lasix 40 mg IV twice daily as her chest x-ray was concerning for pulmonary edema. TTE has been ordered. Due to her multiple medical comorbidities including peripheral vascular disease with poor TBI, brittle diabetes, CKD, congestive heart failure, we did have goals of care discussion as she is high risk for readmission. Wound care will follow up tomorrow. 03/13: No new complaints this morning. Has been seen by Dr. Dasilva who plans bedside procedure. Echo shows low normal LVEF of 50%. 03/14: Bedside debridement by Dr. Medrano. [place] to be neuropathic ulcer, stage III. He is requesting physical therapy to work on heel weightbearing only. Continues to diurese well. Constitutional Vitals: Vital Signs Temp Pulse Resp BP Pulse Ox O2 Del Method O2 Flow Rate 98.4 F 87 20 139/66 91 2 03/14/22 12:00 03/14/22 12:00 03/14/22 12:00 03/14/22 12:00 03/14/22 12:00 03/14/22 12:00 03/12/22 11:19 Period Temp Pulse Resp BP Sys/Pedersen Pulse Ox O2 Del Method O2 Flow Rate Last 24 Hr 98.1 F-99.1 F 87-104 20-20 135-160/57-84 90-93 Room Air-Room Air Intake and Output 03/14/22 03/14/22 03/14/22 05:59 13:59 21:59 Intake Total 450 800 Output Total 1200 1100 Balance -750 -300 Intake & Output: Intake & Output 03/14/22 03/14/22 03/14/22 05:59 13:59 21:59 Intake Total 450 800 Output Total 1200 1100 Balance -750 -300 Intake: Oral 450 800 Output: Void Amount 1200 1100 Other: Meal Lunch Percent of Meal Consumed 100% Feeding Ability Assist with Tray Set Up Urine Appearance Clear Clear Urine Color Yellow Yellow # Bowel Movements 1 Exam: General: Alert, Awake, No acute Distress Eyes/N/T: EOMI, Head/Neck: neck supple, CV: RRR, No murmurs, Pulm: Clear b/l, no wheezing/rhonchi/rales Abd: soft, nontender, +BS x4 Ext: no clubbing/cyanosis/edema. right great toe wound with dressing in place Neuro: Alert, no focal deficits, moves all extremities, Skin: warm/dry OBJ DATA Labs CBC & Chem 7: 03/13/22 05:17 03/13/22 05:18 Labs: Abnormal Lab Results 03/13/22 03/13/22 03/12/22 05:18 05:17 08:16 WBC RBC 3.35 L Hgb 9.9 L Hct 31.8 L RDW 15.7 H MPV 12.7 H Immature Gran % (Auto) 1.5 H Immature Gran # 0.16 H D-Dimer BUN 57 H 47 H Creatinine 1.6 H 1.8 H Glucose 147 H 149 H 03/12/22 03/11/22 08:16 22:08 WBC 12.6 H RBC 3.44 L Hgb 10.2 L Hct 32.4 L RDW 15.6 H MPV 12.8 H Immature Gran % (Auto) 0.6 H Immature Gran # 0.08 H D-Dimer 2.39 H BUN Creatinine Glucose Meds: Medications Acetaminophen (Acetaminophen 325 Mg Tablet) 650 mg PO Q6HP PRN; Protocol PRN Reason: Per Pain Protocol/Fever > 101 Last Admin: 03/12/22 08:49 Dose: 650 mg Hydrocodone Bitart/Acetaminophen (Hydrocodone/Apap 7.5/325mg Tablet) 1 tab PO QIDP PRN PRN Reason: Pain Last Admin: 03/14/22 10:43 Dose: 1 tab Albuterol/Ipratropium (Ipratropium/Albuterol 3 Ml Ampul.Neb) 3 ml NEB Q4HP PRN PRN Reason: Shortness Of Breath Last Admin: 03/13/22 04:12 Dose: 3 ml Atorvastatin Calcium (Atorvastatin 40 Mg Tablet) 80 mg PO HS [facility] Last Admin: 03/13/22 20:32 Dose: 80 mg Cefepime HCl (Cefepime 2 Gm Vial) 2 gm IV Q12H [facility]; Protocol Last Admin: 03/14/22 08:42 Dose: 2 gm Dextrose (Dextrose 50% 50 Ml Vial) 0 ml IV UD PRN PRN Reason: Per Sliding Scale Diagnostic Test (Pha) (Accu-Chek 1 Each Strip) 1 each FS ACHS [facility] Last Admin: 03/14/22 11:41 Dose: 1 each Docusate Sodium (Docusate Sodium 100 Mg Capsule) 100 mg PO BID [facility] Last Admin: 03/14/22 08:41 Dose: 100 mg Furosemide (Furosemide 20 Mg Tablet) 20 mg PO DAILY [facility] Glucose (Dextrose 31 Gm Oral.Susp) 15 gm PO PRN PRN PRN Reason: Hypoglycemia Heparin Sodium (Porcine) (Heparin 5,000 Unit/Ml Vial) 5,000 unit SQ Q12 [facility] Last Admin: 03/14/22 08:41 Dose: 5,000 unit Insulin Human Lispro (Insulin Lispro 1 Unit/0.01 Ml Unit) 0 unit SQ ACHS [facility]; Protocol Last Admin: 03/14/22 11:50 Dose: 6 unit Morphine Sulfate (Morphine 4 Mg/Ml Vial) 4 mg IV Q4HP PRN; Protocol PRN Reason: Per Pain Protocol Ondansetron HCl (Ondansetron 4 Mg/2 Ml Vial) 4 mg IV Q6HP PRN PRN Reason: Nausea And Vomiting Oxycodone HCl (Oxycodone Hcl 5 Mg Tablet) 5 mg PO Q4HP PRN; Protocol PRN Reason: Per Pain Protocol Last Admin: 03/11/22 15:35 Dose: 5 mg Pregabalin (Pregabalin 150 Mg Capsule) 150 mg PO BID [facility] Last Admin: 03/14/22 08:41 Dose: 150 mg Senna (Sennosides 1 Tablet) 2 tab PO HS [facility] Last Admin: 03/13/22 20:32 Dose: 2 tab Sodium Chloride (0.9 % Sodium Chloride 10 Ml Syringe) 10 ml IV Q8 [facility] Last Admin: 03/14/22 13:42 Dose: 10 ml A/P Narrative A/P Narrative: A: *Diabetic foot ulcer with cellulitis: s/p Bedside debridement on 03/14, stage III neuropathic ulcer *Pulmonary edema: -Patient had been on torsemide previously, Diuretics is stopped due to severe hypocalcemia -Decompensated Sunday night -Tolerating furosemide -Preserved LVEF on echo -Appears back to baseline 03/13 -Decreasing furosemide on 03/14 *Type 2 diabetes mellitus: *CKD Plan: -Continue antibiotics with cefepime, MRSA swab negative -Further wound care as per Dr. Dasilva and team -Continue with current diabetic care -PT evaluation to work on heel weightbearing -Decrease furosemide to 20 mg p.o. daily -Recheck labs in the morning -ppx: heparin Time Spent With Patient Time: Total time spent is greater than 50% in coordination of care (as documented) at patient's floor/unit and/or counseling patient: QUALITY VTE Deep Vein Thrombosis/Pulmonary Embolism Present on Admission: No
--- NOTE | 2022-03-14 14:20 | Discharge Summary ---
Discharge Provider Provider IMPORTANT FOLLOW-UP INFORMATION FOR PCP: Patient information: Note initiated : 03/14/22 at 2:19 pm Service Date, if different from initiated Date: [] Patient: Rosina Morris 76 y/o F admitted on 03/10/22 for R ankle pain. Chief Complaint: [] Date of admission: 03/10/22 12:00 Discharge date: 03/15/22 Primary care physician: SUZY Cameron Consults: 03/10/22 Consult to Physician [CONS] Stat Comment: Consulting Provider: Bailey De La Cruz Reason For Exam: Physician to Consult Consult to Physician [CONS] Stat Comment: infected DM ulcer / osteo Consulting Provider: Maksim Gray Reason For Exam: Physician to Consult 03/10/22 13:34 Consult to Physician [CONS] Routine Comment: Consulting Provider: Chas Dasilva Reason For Exam: Physician to Consult COURSE Hospital Course Hospital course: 03/10: Ms. Morris is a 76 year old F with a complex past medical history significant for type 2 diabetes mellitus complicated by gastroparesis, and neuropathy, former smoker, history of bladder CA, and CKD stage III/IV who presents to the hospital with 2-day history of worsening right foot swelling, erythema and pain. The patient states that she noticed this on Sunday morning. Her son came over and did a foot exam. That is when she noticed there was a diabetic foot ulcer on the plantar aspect. There was dried skin and the son removed at and was able to manipulate the area for pus drainage. She presented to the hospital for further management and evaluation. On arrival she was hemodynamically stable and afebrile however her white blood cell count was found to be elevated at 17.7. The patient had CT of the right foot which revealed possible gout involving the right first metatarsal phalangeal joint, possible fractured sesamoid at the right first metatarsal, healing fracture of the right fourth proximal phalanx, and no soft tissue wound identified. No definitive evidence of osteomyelitis. The hospitalist service was asked admit the patient for further management and evaluation of her diabetic foot ulcer 03/11: The patient underwent her MRI today which was negative for osteomyelitis and this is reassuring. We will continue antibiotic therapy with vancomycin and cefepime. She will be seen by wound care likely on Sunday. They will decide if debridement is required. 03/12: The patient's MRSA screen is negative and we will discontinue vancomycin. She was received 3 days of Vanco. Yesterday evening, the patient was hypoxemic with an O2 sat in the 80s. We checked a chest x-ray and D-dimer. She was placed on 3 L of supplemental O2. This morning she was resting comfortably in her chair.She has underlying congestive heart failure and she was previously hospitalized for severe hypocalcemia in the setting of diuretic use resulting in tetany. Her torsemide is being held. We will now repeat BNP, started on Lasix 40 mg IV twice daily as her chest x-ray was concerning for pulmonary edema. TTE has been ordered. Due to her multiple medical comorbidities including peripheral vascular disease with poor TBI, brittle diabetes, CKD, congestive heart failure, we did have goals of care discussion as she is high risk for readmission. Wound care will follow up tomorrow. 03/13: No new complaints this morning. Has been seen by Dr. Dasilva who plans bedside procedure. Echo shows low normal LVEF of 50%. 03/14: Bedside debridement by Dr. Medrano. [place] to be neuropathic ulcer, stage III. He is requesting physical therapy to work on heel weightbearing only. Continues to diurese well. 03/15 Doing well. No overnight event or new complaints. Discharge today likely and follow-up with Dr. Dasilva A: *Diabetic foot ulcer with cellulitis: s/p Bedside debridement on 03/14, stage III neuropathic ulcer *Pulmonary edema: -Patient had been on torsemide previously, Diuretics stopped due to severe hypocalcemia -Decompensated Sunday night -Tolerating furosemide -Preserved LVEF on echo -Appears back to baseline 03/13 -Decreasing furosemide on 03/14 *Type 2 diabetes mellitus: *CKD IIIb-IV: *Anemia, chronic: Plan: -Continue antibiotics with cefepime, MRSA swab negative -Further wound care as per Dr. Dasilva and team -Continue with current diabetic care Discharge diagnosis: Diabetic foot ulcer with cellulitis pulmonary edema diabetes chronic kidney Time Spent with Patient Time attestation: Total time spent providing and/or coordinating discharge services: Time spent: Greater than 30 minutes EXAM Constitutional Vitals: Temp Pulse Resp BP Pulse Ox O2 Del Method O2 Flow Rate 98.4 F 87 20 139/66 91 2 03/14/22 12:00 03/14/22 12:00 03/14/22 12:00 03/14/22 12:00 03/14/22 12:00 03/14/22 12:00 03/12/22 11:19 Discharge Plan Patient/Caregiver Discharge Instructions Activity: increase activity as tolerated Diet: Consistent Carbohydrate Prescriptions: New amoxicillin-pot clavulanate 500-125 mg tablet 1 tab PO BID Qty: 10 0RF Continued atorvastatin 80 mg tablet 80 mg PO QHS insulin lispro [Humalog KwikPen Insulin] 100 unit/mL Insulin Pen See Rx Instructions .ROUTE .COMPLEX Rx Instructions: sliding scale with meals insulin glargine [Basaglar KwikPen U-100 Insulin] 100 unit/mL (3 mL) Insulin Pen 10 unit SUBCUT DAILY pregabalin 150 mg capsule 150 mg PO BID Rx Instructions: 1 tab orally 2- 3 X day Trulicity 3 mg/0.5 mL pen injector 0.5 ml subcut WEEKLY Rx Instructions: takes on sunday hydrocodone-acetaminophen 7.5-325 mg tablet 1 tab PO QIDP PRN (Reason: Pain) (DME) lancets [Accu-Chek Softclix Lancets] Misc topical (DME) blood-glucose meter [Accu-Chek Guide Glucose Meter] Misc MISCELLANEOUS TID (DME) Accu-Chek Guide test strips Strip MISCELLANEOUS Label Comments: [NO ORIGINAL SIG] allopurinol 300 mg tablet 300 mg PO QDAY torsemide 20 mg Tablet 30 mg PO QDAY lisinopril 10 mg Tablet 10 mg PO QDAY docusate sodium [Stool Softener] 100 mg capsule 100 mg PO QDAY glipizide 10 mg tablet extended release 24hr 10 mg PO BID Follow Up Plan Follow up with: Marce Baca ARNP [Primary Care Provider] - Chas Dasilva MD [Physician] - Patient Disposition: Home Health Service Prognosis: Fair Rehab Potential: Fair Overall status at discharge: patient is progressing back to baseline Discharge Orders: Discharge Order (Routine); Ordered 03/15/22 Ordered By: Moe Baca [facility] VTE Deep Vein Thrombosis/Pulmonary Embolism Present on Admission: No
[2022-03-14] MEDS: SENNOSIDES 1 TABLET PO SCH (20:56)
[2022-03-14] MEDS: ATORVASTATIN 40 MG TABLET PO SCH (20:57)
[2022-03-15 06:20] LABS: Basophils # (Auto) 0.05 K/mcL (0.00-0.30); Basophils % (Auto) 0.6 % (0.0-2.0); Eosinophils # (Auto) 0.62 K/mcL (0.00-0.70); Eosinophils % (Auto) 7.5 % (0.0-7.0); Hematocrit 32.3 % (34.1-44.9); Hemoglobin 10.3 g/dL (11.2-15.7); Lymphocytes # (Auto) 3.12 K/mcL (1.50-4.80); Mean Cell Volume 94.2 fL (80.0-100.0); Mean Corpuscular HGB Conc 31.9 g/dL (31.0-36.0); Mean Platelet Volume 11.9 fL (7.4-10.4); Monocytes # (Auto) 0.55 K/mcL (0.10-0.90); Monocytes % (Auto) 6.6 % (1.0-12.0); Neutrophils % (Auto) 46.6 % (38.0-78.0); Platelet Count 338 K/mcL (140-440); RBC 3.43 M/mcL (3.59-5.38); Red Cell Distribution Width 15.7 % (11.5-14.5); WBC 8.3 K/mcL (4.5-11.0)
[2022-03-15 06:45] LABS: ALT/SGPT 28 U/L (<40); AST/SGOT 29 U/L (<32); Albumin 2.5 gm/dL (3.2-5.2); Albumin/Globulin Ratio 0.7 (1.0-2.3); Alkaline Phosphatase 134 U/L (39-117); Bilirubin,Direct < 0.2 mg/dL (0-0.3); Bilirubin,Total 0.2 mg/dL (0.1-1.0); Blood Urea Nitrogen 54 mg/dL (8-23); Calcium 8.9 mg/dL (8.6-10.4); Carbon Dioxide 24 mmol/L (22-30); Chloride 104 mmol/L (96-108); Globulin 3.7 gm/dL (2.2-3.7); Glomerular Filtration Rate 31; Glucose 135 mg/dL (70-105); Lactate Dehydrogenase 193 U/L (135-225); Phosphorous 3.7 mg/dL (2.5-4.5); Triglycerides 127 mg/dL (<150); Uric Acid 9.1 mg/dL (2.5-8.0)
[2022-03-15] MEDS ORDERED: glipiZIDE 5 MG TAB.XL.24H PO SCH (07:30)
[2022-03-15 07:31] LABS: Lymphocytes % (Auto) 37.5 % (15.5-49.0)
--- NOTE | 2022-03-15 08:01 | Internal Med Progress Note ---
SUBJECTIVE Subjective Patient information: Note initiated : 03/15/22 at 7:59 am Service Date, if different from initiated Date: [] Patient: Rosina Morris 76 y/o F admitted on 03/10/22 for R ankle pain. Chief Complaint: [] Principal diagnosis: Infected diabetic foot ulcer, right Interval history: 03/10: Ms. Morris is a 76 year old F with a complex past medical history significant for type 2 diabetes mellitus complicated by gastroparesis, and neuropathy, former smoker, history of bladder CA, and CKD stage III/IV who presents to the hospital with 2-day history of worsening right foot swelling, erythema and pain. The patient states that she noticed this on Sunday morning. Her son came over and did a foot exam. That is when she noticed there was a diabetic foot ulcer on the plantar aspect. There was dried skin and the son removed at and was able to manipulate the area for pus drainage. She presented to the hospital for further management and evaluation. On arrival she was hemodynamically stable and afebrile however her white blood cell count was found to be elevated at 17.7. The patient had CT of the right foot which revealed possible gout involving the right first metatarsal phalangeal joint, possible fractured sesamoid at the right first metatarsal, healing fracture of the right fourth proximal phalanx, and no soft tissue wound identified. No definitive evidence of osteomyelitis. The hospitalist service was asked admit the patient for further management and evaluation of her diabetic foot ulcer 03/11: The patient underwent her MRI today which was negative for osteomyelitis and this is reassuring. We will continue antibiotic therapy with vancomycin and cefepime. She will be seen by wound care likely on Sunday. They will decide if debridement is required. 03/12: The patient's MRSA screen is negative and we will discontinue vancomycin. She was received 3 days of Vanco. Yesterday evening, the patient was hypoxemic with an O2 sat in the 80s. We checked a chest x-ray and D-dimer. She was placed on 3 L of supplemental O2. This morning she was resting comfortably in her chair.She has underlying congestive heart failure and she was previously hospitalized for severe hypocalcemia in the setting of diuretic use resulting in tetany. Her torsemide is being held. We will now repeat BNP, started on Lasix 40 mg IV twice daily as her chest x-ray was concerning for pulmonary edema. TTE has been ordered. Due to her multiple medical comorbidities including peripheral vascular disease with poor TBI, brittle diabetes, CKD, congestive heart failure, we did have goals of care discussion as she is high risk for readmission. Wound care will follow up tomorrow. 03/13: No new complaints this morning. Has been seen by Dr. Dasilva who plans bedside procedure. Echo shows low normal LVEF of 50%. 03/14: Bedside debridement by Dr. Medrano. [place] to be neuropathic ulcer, stage III. He is requesting physical therapy to work on heel weightbearing only. Continues to diurese well. Constitutional Vitals: Vital Signs Temp Pulse Resp BP Pulse Ox O2 Del Method O2 Flow Rate 98.1 F 92 H 12 140/65 91 2 03/15/22 04:13 03/15/22 04:13 03/15/22 04:13 03/15/22 04:13 03/15/22 04:13 03/15/22 04:13 03/12/22 11:19 Period Temp Pulse Resp BP Sys/Pedersen Pulse Ox O2 Del Method O2 Flow Rate Last 24 Hr 98.0 F-98.7 F 81-104 12-20 128-156/64-82 91-95 Room Air-Room Air Intake and Output 03/14/22 03/15/22 03/15/22 21:59 05:59 13:59 Intake Total 360 450 Output Total 850 700 Balance -490 -250 Weight 70.896 kg Intake & Output: Intake & Output 03/14/22 03/15/22 03/15/22 21:59 05:59 13:59 Intake Total 360 450 Output Total 850 700 Balance -490 -250 Weight 70.896 kg Intake: Oral 360 450 Output: Void Amount 850 700 Other: Meal Dinner Percent of Meal Consumed 100% Feeding Ability Assist with Tray Set Up Urine Appearance Clear Urine Color Yellow Exam: General: Alert, Awake, No acute Distress Eyes/N/T: EOMI, Head/Neck: neck supple, CV: RRR, No murmurs, Pulm: Clear b/l, no wheezing/rhonchi/rales Abd: soft, nontender, +BS x4 Ext: no clubbing/cyanosis/edema. right great toe wound with dressing in place Neuro: Alert, no focal deficits, moves all extremities, Skin: warm/dry OBJ DATA Labs CBC & Chem 7: 03/15/22 05:17 03/15/22 05:17 Labs: Abnormal Lab Results 03/15/22 03/15/22 03/13/22 05:17 05:17 05:18 WBC RBC 3.43 L Hgb 10.3 L Hct 32.3 L RDW 15.7 H MPV 11.9 H Immature Gran % (Auto) 1.2 H Eos % (Auto) 7.5 H Immature Gran # 0.10 H BUN 54 H 57 H Creatinine 1.6 H 1.6 H Glucose 135 H 147 H Uric Acid 9.1 H GGT 43 H Alkaline Phosphatase 134 H Albumin 2.5 L Albumin/Globulin Ratio 0.7 L 03/13/22 03/12/22 03/12/22 05:17 08:16 08:16 WBC 12.6 H RBC 3.35 L 3.44 L Hgb 9.9 L 10.2 L Hct 31.8 L 32.4 L RDW 15.7 H 15.6 H MPV 12.7 H 12.8 H Immature Gran % (Auto) 1.5 H 0.6 H Eos % (Auto) Immature Gran # 0.16 H 0.08 H BUN 47 H Creatinine 1.8 H Glucose 149 H Uric Acid GGT Alkaline Phosphatase Albumin Albumin/Globulin Ratio Meds: Medications Acetaminophen (Acetaminophen 325 Mg Tablet) 650 mg PO Q6HP PRN; Protocol PRN Reason: Per Pain Protocol/Fever > 101 Last Admin: 03/12/22 08:49 Dose: 650 mg Hydrocodone Bitart/Acetaminophen (Hydrocodone/Apap 7.5/325mg Tablet) 1 tab PO QIDP PRN PRN Reason: Pain Last Admin: 03/14/22 19:15 Dose: 1 tab Albuterol/Ipratropium (Ipratropium/Albuterol 3 Ml Ampul.Neb) 3 ml NEB Q4HP PRN PRN Reason: Shortness Of Breath Last Admin: 03/13/22 04:12 Dose: 3 ml Atorvastatin Calcium (Atorvastatin 40 Mg Tablet) 80 mg PO HS [facility] Last Admin: 03/14/22 20:57 Dose: 80 mg Cefepime HCl (Cefepime 2 Gm Vial) 2 gm IV Q12H [facility]; Protocol Last Admin: 03/14/22 20:58 Dose: 2 gm Dextrose (Dextrose 50% 50 Ml Vial) 0 ml IV UD PRN PRN Reason: Per Sliding Scale Diagnostic Test (Pha) (Accu-Chek 1 Each Strip) 1 each FS [facility] Last Admin: 03/14/22 21:12 Dose: 1 each Docusate Sodium (Docusate Sodium 100 Mg Capsule) 100 mg PO BID [facility] Last Admin: 03/14/22 20:57 Dose: 100 mg Furosemide (Furosemide 20 Mg Tablet) 20 mg PO DAILY [facility] Glucose (Dextrose 31 Gm Oral.Susp) 15 gm PO PRN PRN PRN Reason: Hypoglycemia Insulin Human Lispro (Insulin Lispro 1 Unit/0.01 Ml Unit) 0 unit SQ [facility]; Protocol Last Admin: 03/14/22 21:16 Dose: 4 unit Morphine Sulfate (Morphine 4 Mg/Ml Vial) 4 mg IV Q4HP PRN; Protocol PRN Reason: Per Pain Protocol Ondansetron HCl (Ondansetron 4 Mg/2 Ml Vial) 4 mg IV Q6HP PRN PRN Reason: Nausea And Vomiting Oxycodone HCl (Oxycodone Hcl 5 Mg Tablet) 5 mg PO Q4HP PRN; Protocol PRN Reason: Per Pain Protocol Last Admin: 03/11/22 15:35 Dose: 5 mg Pregabalin (Pregabalin 150 Mg Capsule) 150 mg PO BID [facility] Last Admin: 03/14/22 20:57 Dose: 150 mg Senna (Sennosides 1 Tablet) 2 tab PO HS [facility] Last Admin: 03/14/22 20:56 Dose: 2 tab Sodium Chloride (0.9 % Sodium Chloride 10 Ml Syringe) 10 ml IV Q8 [facility] Last Admin: 03/14/22 20:58 Dose: 10 ml A/P Narrative A/P Narrative: A: *Diabetic foot ulcer w/cellulitis: s/p Bedside debridement on 03/14, stage III neuropathic ulcer *Pulmonary edema: -Patient had been on torsemide previously, Diuretics is stopped due to severe hypocalcemia -Decompensated Sunday night -Tolerating furosemide -Preserved LVEF on echo -Appears back to baseline 03/13 -Decreasing furosemide on 03/14 *Type 2 diabetes mellitus: *CKD IIIb-IV: *Anemia, chronic: Plan: -Continue antibiotics with cefepime, MRSA swab negative -Further wound care as per Dr. Vidya and team -Continue with current diabetic care, basal and ssi -PT evaluation to work on heel weightbearing -Decrease furosemide to 20 mg p.o. daily -cont acei -Recheck labs in the morning -ppx: heparin Time Spent With Patient Time: Total time spent is greater than 50% in coordination of care (as documented) at patient's floor/unit and/or counseling patient: QUALITY VTE Deep Vein Thrombosis/Pulmonary Embolism Present on Admission: No
[2022-03-15] MEDS: 0.9 % SODIUM CHLORIDE 10 ML SYRINGE IV SCH (08:04)
[2022-03-15] MEDS: CEFEPIME 2 GM VIAL IV SCH (08:05)
[2022-03-15] MEDS: INSULIN LISPRO 1 UNIT/0.01 ML UNIT SQ SCH ×2 (08:05→11:28)
[2022-03-15] MEDS: DOCUSATE SODIUM 100 MG CAPSULE PO SCH (08:06)
[2022-03-15] MEDS: PREGABALIN 150 MG CAPSULE PO SCH (08:06)
[2022-03-15] MEDS ORDERED: LISINOPRIL 10 MG TABLET PO SCH (09:00)
[2022-03-15] MEDS ORDERED: INSULIN GLARGINE, HUMAN 1 UNIT/0.01 ML SQ SCH (09:00)
[2022-03-15] MEDS ORDERED: ALLOPURINOL 100 MG TABLET PO SCH (09:00)
[2022-03-15] MEDS ORDERED: FUROSEMIDE 20 MG TABLET PO SCH (09:00)
--- NOTE | 2022-03-15 09:17 | General Surgery Progress Note ---
SUBJECTIVE Subjective Patient information: Note initiated : 03/15/22 at 9:12 am Service Date, if different from initiated Date: [] Patient: Rosina Morris 76 y/o F admitted on 03/10/22 for R ankle pain. Chief Complaint: [] Principal diagnosis: Infected diabetic foot ulcer, right Additional PMFSH (Level 3 Only): Patient seen with Mayra RN. Doing well. Had uneventful night. Regular BM this AM. PWB on heel. Ambulated to BR with walker. Constitutional Vitals: Vital Signs Temp Pulse Resp BP Pulse Ox O2 Del Method O2 Flow Rate 97.6 F 85 20 147/78 91 2 03/15/22 08:00 03/15/22 08:00 03/15/22 08:00 03/15/22 08:00 03/15/22 08:00 03/15/22 04:13 03/12/22 11:19 Period Temp Pulse Resp BP Sys/Pedersen Pulse Ox O2 Del Method O2 Flow Rate Last 24 Hr 97.6 F-98.7 F 81-92 12-20 128-147/64-78 91-95 Room Air-Room Air Intake and Output 03/14/22 03/15/22 03/15/22 21:59 05:59 13:59 Intake Total 360 450 Output Total 850 700 Balance -490 -250 Weight 156 lb 4.8 oz Intake & Output: Intake & Output 03/14/22 03/15/22 03/15/22 21:59 05:59 13:59 Intake Total 360 450 Output Total 850 700 Balance -490 -250 Weight 156 lb 4.8 oz Intake: Oral 360 450 Output: Void Amount 850 700 Other: Meal Dinner Percent of Meal Consumed 100% Feeding Ability Assist with Tray Set Up Urine Appearance Clear Urine Color Yellow Exam: AVSS. Unremarkable ANA LUISA. Wound examined. DFU site is clean and dry. Wound c/s GPC in pairs. Sensitivities pending. Nasal swab is NEGATIVE for MRSA. A/P Narrative A/P Narrative: Assessment: Satisfactory progress. Wound care discussed with patient and Marce. Plan of Treatment: Plan OK to d/c home with instructions. Keep dressing celan and dry, Elevation of leg when sitting or lying down. PO antibiotics per Dr. melgar. F/U at wound care clinc. Please confirm appointment before d/c Time Spent With Patient Time: Total time spent is greater than 50% in coordination of care (as documented) at patient's floor/unit and/or counseling patient: Total time spent with greater than 50% in coordination of care (as documented) at patient's floor/unit and/or counseling patient:: 25 - 35 minutes
== END 2022-03-15 12:49 | disposition home health service (06) | DRG 638 ==
LOC: ED 20:37 → MEDSUR 03-10 12:00
PROVIDERS: ADMIT Student in an Organized Health Care Education/Training Program; ATTEND Student in an Organized Health Care Education/Training Program